=== PATIENT | female | born 1955 | race African-American/Black ===

== ENCOUNTER 2024-09-05 20:29 | Inpatient (IN) | payer OTHER, SELFPAY ==
--- NOTE | ~2024-09-05 | US_ITS ---
EXAM: Focused ultrasound examination of the liver HISTORY: liver mass TECHNIQUE: Sonographic evaluation of the liver was performed assessing grayscale appearance and color Doppler flow. COMPARISON: Reference is made to CT examination of the abdomen and pelvis dated 09/13/2024. FINDINGS: Sonographic evaluation of the liver demonstrates innumerable hyperechoic lesions within both the righ t and left lobes of the liver, suitable for biopsy. IMPRESSION: Multiple liver lesions, suitable for biopsy. Reviewed, dictated and finalized at location A.
--- NOTE | ~2024-09-05 | US_ITS ---
EXAMINATION: Limited ultrasound of the liver. US biopsy liver DATE: 09/15/2024 17:38 Regulatory Affairs Director: Katalina Florez M.D. TECHNIQUE: The procedure including the risks, benefits, and alternatives was discussed with the patie nt. Risks discussed included bleeding, infection and nontargeted biopsy. The patient understood the risks and benefits and agreed to proceed. Limited ultrasound examination was performed of liver to determine optimal site for biopsy. This demonstrated multiple lesions within both the right and left lobes of the liver. The most optimal lesion was detected within segment 8 measuring approximately 19 x 11 mm. The surroun ding lesions demonstrated a paucity of vascularity, for which necrosis was suspected. The skin overly ing the anterior lateral right upper quadrant was prepped and draped in usual sterile fashion. Anest hetic was administered with 1% lidocaine subcutaneously as well as within the capsule of the liver. A 17G introducer was placed utilizing continuous ultrasound guidance into the 19 mm lesion, and the i nner needle removed. An 18-gauge biopsy device was then used to obtain multiple biopsy specimens under continuous sonograp hic guidance. The biopsy device was then removed, and specimen was placed immediately into formalin w ith zero cold ischemia time. Multiple of these specimens were fragile, with suspected necrosis versus mucinous content. Gelfoam slurry was then utilized for hemostasis. Postbiopsy imaging was without active extravasation from the liver. No perihepatic fluid collection was appreciated. A sterile dressing was then applied (Steri-Strips, which should be allowed to fall off on their own). There were no immediate complications. The patient tolerated the procedure without difficulty, and was returned via stretcher to her room in good condition. IMPRESSION: 1. Technically successful ultrasound-guided core biopsy of a 19 mm hyperechoic lesion within the righ t lobe of the liver, likely representing metastatic disease. Pathology is pending. Reviewed, dictated and finalized at location A. IMPRESSION: 1. Technically successful ultrasound-guided core biopsy of a 19 mm hyperechoic lesion within the right lobe of the liver, likely representing metastatic disea se. Pathology is pending.
--- NOTE | ~2024-09-05 | XR_ITS ---
Clinical Indication: Weakness AP and lateral views of the chest: Comparison: None Findings: The lungs are clear, without evidence of focal consolidation or pleural effusion. Cardiome diastinal silhouette is within normal limits. Bones and soft tissues are unremarkable, aside from rig ht shoulder arthroplasty. Impression: Clear lungs. Reviewed, dictated and finalized at location . UTER CUSTOMER SUPPORT SPECIALIST Impression: Clear lungs.
--- NOTE | ~2024-09-05 | CT_ITS ---
EXAMINATION: CT abdomen pelvis wo/w con DATE: 09/13/2024 10:09 INDICATION: Ascending colon mass. Gastrointestinal hemorrhage. TECHNIQUE: Computed tomography (CT) of the abdomen and pelvis was performed without and with 100 mL O mnipaque 350 intravenous contrast. Automated exposure control and iterative reconstruction technique were employed. The dose-length product was 427.39 mGy-cm. COMPARISON: None. FINDINGS: The visualized portions of the lung bases demonstrate mild atelectasis. No pleural effusion . The heart size is normal. There are coronary artery calcifications. No pericardial effusion. There are greater than 20 masses in the liver measuring up to 3.6 cm, consistent with metastatic disease. T he gallbladder is normal. Calcifications in the spleen are consistent with old granulomatous disease. The pancreas and adrenal glands are normal. There is cortical thinning of the kidneys. There is an 8 mm cyst in left kidney. The appendix is normal. There is focal wall thickening of the ascending colo n. There are no dilated loops of bowel. There are no pathologically enlarged lymph nodes. There is no free intraperitoneal fluid. There are old healed right rib fractures. There is severe lumbar spondyl osis. There is a chronic compression fracture of T11. IMPRESSION: 1. Focal wall thickening of the ascending colon, consistent with primary malignancy. 2. Greater than 20 liver masses, consistent with metastatic disease. Consider ultrasound-guided core needle biopsy. Reviewed, dictated and finalized at location B. IMPRESSION: 1. Focal wall thickening of the ascending colon, consistent with primary malign julia. 2. Greater than 20 liver masses, consistent with metastatic disease. Consider u ltrasound-guided core needle biopsy.
[2024-09-05 20:44] VITALS: BP 121/63; PULSE 91; RESP 17; TEMP 36.2; O2SAT 99
[2024-09-06] VITALS (8 sets, daily range): BP systolic 115–144; BP diastolic 52–92; PULSE 84–93; RESP 16–20; TEMP 36–37.1; O2SAT 93–100; BMI 19.3
--- NOTE | 2024-09-06 00:10 | ECG_ITS ---
Test Date: 2024-09-06 00:16:34 Measurements Intervals [place] Rate: 86 P: 50 NC: 158 QRS: 28 QRSD: 90 T: 58 QT: 364 QTc: 437 Interpretive Statements SINUS RHYTHM WITH MARKED SINUS ARRHYTHMIA LEFT VENTRICULAR HYPERTROPHY AND ST-T CHANGE [VOLTAGE CRITERIA PLUS ST/T ABNORMALITY] No previous ECG available for comparison Electronically Signed On 09-07-2024 09:42:07 SILVER BUFFER by Rene Cadet M.D.
--- OUTSIDE RECORDS SUMMARY | 2024-09-06 00:30 | XMS_ITS | Referral Summary ---
Author Organization [facility] Address [address] [place] [address] Care Team Providers Care Material Control Supervisor Name Role Phone Arden Flower MD Primary Care Provider [phone] Allergies No known active allergies Medications amLODIPine (NORVASC) 10 mg tabletIndications:h ypertension Take 1 tablet (10 mg total) by mouth daily 08/21/19 22 Active cetirizine (ZyrTEC) 10 mg tabletIndications:S easonal Allergic Rhinitis Take 1 tablet (10 mg total) by mouth daily 08/21/19 22 Active Pepcid 20 mg tabletIndications:g astroesophageal reflux disease Take 1 tablet (20 mg total) by mouth 2 (two) times a day 08/21/19 22 Active hydrALAZINE (APRESOLINE) 100 mg tabletIndications:h ypertension Take 1 tablet (100 mg total) by mouth 2 (two) times a day 08/21/19 22 Active isosorbide mononitrate ER (IMDUR) 60 mg 24 hr tabletIndications:p revention of anginal pain in coronary artery disease Take 1 tablet (60 mg total) by mouth daily 08/21/19 22 Active losartan (COZAAR) 100 mg tabletIndications:h ypertension Take 1 tablet (100 mg total) by mouth daily 08/21/19 22 Active HYDROcodone-acetami nophen (NORCO) 10-325 mg per tabletIndications:P ain Take 1 tablet by mouth every 6 (six) hours as needed for pain 28 tablet 12/28/19 24 Active baclofen (LIORESAL) 10 mg tabletIndications:M uscle Spasticity of Spinal Origin Take 1 tablet (10 mg total) by mouth 2 (two) times a day 60 tablet 12/28/19 24 Active gabapentin (NEURONTIN) 300 mg capsuleIndications: Neuropathic Pain Take 1 capsule (300 mg total) by mouth 3 (three) times a day 90 capsule 11 12/28/19 24 025 Active lidocaine (LIDODERM) 5 %Indications:Posthe rpetic Neuralgia Place 2 patches on the skin daily Remove & discard patch within 12 hours or as directed by MD. 60 patch 1 12/28/19 Active sodium chloride (OCEAN) 0.65 % nasal spray Administer 2 sprays into each nostril every 6 (six) hours as needed for congestion or rhinitis 15 mL 1 12/28/19 24 025 Active senna-docusate (PERICOLACE) 8.6-50 mgIndications:const ipation Take 1 tablet by mouth daily 30 tablet 12/28/19 Active apixaban 5 mg (74 tabs) tablets,dose packIndications:pul monary thromboembolism Take 10 mg (2 tablets) by mouth 2 (two) times a day for 7 days, then take 5 mg (1 tablet) by mouth 2 (two) times a day thereafter. 74 tablet 01/24/20 24 Active Active Problems Problem Noted Date Diagnosed Date Moderate protein-calorie malnutrition (CMS/HCC) 01/23/2024 Multiple subsegmental pulmon steve emboli without acute cor pulmonale 01/22/2024 Hyponatremia 12/21/2023 Nausea and vomiting 12/21/2023 Social History Tobacco Use Types Packs/Day Years Used Date Smoking Tobacco: Every Day Cigarettes Tobacco Cessation:Ready to Q uit: Not Asked; Counseling Given: Not Answered Alcohol Use Standard Drinks/Week Comments Yes 7 (1 standard drink = 0.6 oz pur e alcohol) OASIS D0700: Social Isolation Answer Da te Recorded Frequency of experiencing lo neliness or isolation Patient unable to respond 02/26/2024 OASIS A1250: Transportation Answer Date Recorded Lack of Transportation (Medical) Not on file 02/26/2024 Lack of Transportation (Non-Medical) Not on file 02/26/2024 Patient Unable or Declines to Respond Yes 02/26/2024 OASIS B1300: Health Literacy Answer Radames e Recorded Frequency of needing help to read materials from doctor or pharmacy Patient unable to respond 02/26/2024 [facility] Utilities Answer Date Recorded In the past 12 months has th e electric, gas, oil, or water company threatened to shut off services in your home? No 01/25/2024 Social Connection and Isolat ion Panel [NHANES] Answer Date Recorded In a typical week, how many times do you talk on the phone with family, friends, or neighbors? More than three times a week 01/25/2024 How often do you get togethe r with friends or relatives? More than three times a week 01/25/2024 How often do you attend chur ch or muslim services? 1 to 4 times per year 01/25/2024 Do you belong to any clubs o r organizations such as judaism groups, unions, fraternal or athletic groups, or school groups? No 01/25/2024 How often do you attend meet ings of the clubs or organizations you belong to? Never 01/25/2024 Are you , , di vorced, , never , or living with a partner? 01/25/2024 Overall Financial Resource Strain (CARDIA) Answe r Date Recorded How hard is it for you to pa y for the very basics like food, housing, medical care, and heating? Not very hard 01/25/2024 Hunger Vital Sign Answer Date Recorded Within the past 12 months, y ou worried that your food would run out before you got the money to buy more. Never true 01/25/20 24 Within the past 12 months, t he food you bought just didn't last and you didn't have money to get more. Never true 01/25/2024 PRAPARE - Transportation Answer Date Re corded In the past 12 months, has l ack of transportation kept you from medical appointments or from getting medications? No 01/04 In the past 12 months, has l ack of transportation kept you from meetings, work, or from getting things needed for daily living? No 01/25/2024 Housing Stability Vital Sign Answer Radames e Recorded In the last 12 months, was t here a time when you were not able to pay the mortgage or rent on time? No 01/25/2024 In the past 12 months, how m any times have you moved where you were living? 0 01/25/2024 At any time in the past 12 m [facility], were you homeless or living in a retirement (including now)? No 01/25/2024 Personal Safety Answer Date Recorded Have you ever been in or are you currently in a harmful physical or emotional relationship or is someone making you feel afraid or unsafe? Denies 05/10/2024 Comments No Sex and Gender Information Value Date Recorded Sex Assigned at Not on file Legal Sex Female 8:26 PM DIRECTOR ORACLE DAT[employer]ASE Gender Identity Not on file Sexual Orientation Not on file Last Filed Vital Signs Vital Sign Reading Time Taken Comments Blood Pressure 135/65 05/10/2024 6:00 PM DIRECTOR [employer] Pulse 78 05/10/2024 4:17 PM [employer]OR [employer] DAT[employer] Temperature 36.6 C (97.8 F) 05/10/2024 4:17 PM DIRECTOR [employer]ACLE DAT[employer]ASE Respiratory Rate 22 05/10/2024 4:17 PM DIRECTOR ORACLE DATABASE Oxygen Saturation 96% 05/10/2024 4:17 PM DIRECTOR [employer] DAT[employer] Inhaled Oxygen Concentration - - Weight 56.2 kg (123 lb 12.8 oz) 01/23/2024 2:44 PM CDT Bed scale Height 154.9 cm (5' 0.98 ) 01/23/2024 3:04 PM CD T Body Mass Index 23.4 01/23/2024 2:44 PM CDT Plan of Treatment Not on file Procedures Procedure Name Priority Date/Time Associated Diagnosis Comments SCREENING MAMMOGRAM BILATERAL W EDWARD Schedule Routine, Read Routine (OP Routine) 06/06/2022 2:03 PM DIRECTOR ORACLE DAT[employer]ASE Encounter for screening mammogram for malignant neoplasm of breast OCCULT BLOOD, FECAL (FIT) Routine 10/18/2015 2:30 PM CDT from Last 3 Months or Most Recently Relevant to Health Maintenance Results * Screening Mammogram Bilateral W Edward (06/06/2022 2:03 PM DIRECTOR ORAC[employer] DAT[employer]ASE) Anatomical Region Laterality Modality Breast Bilateral Mammography Impressions 06/11/2022 1:12 PM DIRECTOR [employer] DATABASE BI-RADS ATLAS category (overall): 2 - Benign There is no mammographic evidence of malignancy. A 1 year screening mammogram is recommended. The patient has been or will be contacted. We recommend annual screening mammography for women at average risk of breast cancer beginning at age 40, based on guidelines of the [place] [employer] (ACR Practice Parameter for the Performance of Screening and Diagnostic Mammography) and [place] [employer]. For women with and elevated risk of breast cancer, please refer to the ACR Practice Parameter for specific screening recommendations. The patient will be entered into a reminder system with a target due date of 1 year for her next screening exam. Narrative 06/11/2022 1:12 PM DIRECTOR ORACLE DATABASE Screening Mammogram Bilateral W Edward: 06/06/22 The study was acquired using full field digital technology and interpreted from soft copy. 2D digital mammographic views, as well as 3D digital tomosynthesis were performed in the CC and MLO projections. CLINICAL: Encounter for screening mammogram for malignant neoplasm of breast. No relevant medical history has been documented for this patient. History of breast cancer in Neg Hx. COMPARISONS: 12/26/2014 Breast Imaging Diagnostic Outside Reference 12/11/2014 Breast Imaging Screening Outside Reference 04/08/2012 Breast Imaging Diagnostic Outside Reference BREAST TISSUE: The breasts have scattered areas of fibroglandular density. FINDINGS: Suboptimal examination secondary to difficulty with patient positioning related to the patient's physical condition. There are benign scattered calcifications in both breasts. No suspicious masses, suspicious calcifications, or other suspicious findings are seen within either breast. There has been no suspicious change. us Arden Flower MD IMG MAMMO PROCEDURES Final Result * Occult blood, fecal non neoplasm screening (10/18/2015 2:30 PM CDT) Stool Occult Blood NEGATIVE NEGATIVE 10/18/2015 3:06 PM CDT [facility] [employer] HISTORICAL RESULTS 10/18/2015 2:30 PM CDT 10/18/2015 2:47 PM CDT Narrative [facility] [employer] HISTORICAL RESULTS - 10/18/2015 3:06 PM CDT Collected By ms us [place] Mahmood MD LAB BODY FLUIDS AND STOOLS ORDER HEMAL Final Result [facility] HISTORICAL RESULTS from Last 3 Months or Most Recently Relevant to Health Maintenance Insurance Advance Directives For more information, please contact: [phone] * Full Code (Latest Code Status on File) Date Activated Date Inactivated Comments 01/22/2024 4:52 PM 01/25/2024 6:10 PM * Full Code Date Activated Date Inactivated Comments 12/21/2023 3:29 AM 12/28/2023 5:57 PM Care Teams Material Control Supervisor Relationship Specialty Start Date End Date Arden Flower MD [address] [place] [address] PCP - General 09/26/20
--- OUTSIDE RECORDS SUMMARY | 2024-09-06 00:30 | XMS_ITS | Clinical Summary ---
Author Organization [facility] Address [address] [place] [address] Care Team Providers Care Manager Architectural Name Role Phone Arden Flower MD Primary Care Provider [phone] Allergies No known active allergies Medications amLODIPine [...] tablet by mouth daily 30 tablet 12/28/19 24 Active apixaban 5 mg (74 tabs) tablets,dose [...] 01/22/2024 Hyponatremia 12/21/2023 Nausea and vomiting 12/21/2023 Surgical History Surgery Date Site/Laterality Comments BREAST BIOPSY Left Benign Medical History Medical History Date Comments Hypertension COPD (chronic obstructive pulmonary disease) (HC C) Family History Medical History Relation Name Comments Breast cancer Neg Hx Relation Name Status Comments Daughter Alive Social History Tobacco Use Types Packs/Day Years [...] or pharmacy Patient unable to respond 02/26/2024 [facility] Utilities Answer Date Recorded In the past 12 months has th e [employer], gas, oil, or water Sol[employer] threatened to shut off services in your [...] often do you attend chur ch or gnosticist services? 1 to 4 times per year 01/25/2024 Do you belong to any clubs o r organizations such as religious groups, unions, fraternal or athletic groups, or [...] any time in the past 12 m [facility], were you homeless or living in a [place] [facility] (including now)? No 01/25/2024 Personal Safety Answer Date Recorded Have you ever been in or are you currently in a harmful physical or emotional relationship or is someone making you feel afraid or unsafe? Denies 05/10/2024 Comments No Sex and Gender Information Value Date Recorded Sex Assigned at Not on file Legal Sex Female 8:26 PM COFFEE GRINDER Gender Identity Not on file Sexual Orientation Not on file Obstetrics History Para Term AB IAB SAB Ectopic Multiple Livin g Live Births 2 1 1 Date Outcome GA Total Labor Labor/2nd/3rd Weight Sex Type Anes PTL Zaina A1 A5 Name Clin Term Last Filed Vital Signs Vital Sign Reading Time Taken Comments Blood Pressure 135/65 05/10/2024 6:00 PM COFFEE GRINDER Pulse 78 05/10/2024 4:17 PM COFFEE GRINDER Temperature 36.6 C (97.8 F) 05/10/2024 4:17 PM COFFEE GRINDER Respiratory Rate 22 05/10/2024 4:17 PM COFFEE GRINDER Oxygen Saturation 96% 05/10/2024 4:17 PM COFFEE GRINDER Inhaled Oxygen Concentration - - Weight 56.2 kg (123 lb 12.8 oz) 01/23/2024 2:44 PM CDT Bed scale Height 154.9 cm (5' 0.98 ) 01/23/2024 3:04 PM CD T Body Mass Index 23.4 01/23/2024 2:44 PM CDT Plan of Treatment Health Maintenance Due Date Last Done Comments Colon Cancer Screening-Colonoscopy 1955 Depression Screening 1955 Hepatitis C Screening 1955 Osteoporosis Screening-Bone Density Scan 1955 DTaP/Tdap/Td Vaccine (1 - Tdap) 01/08/1964 Hepatitis B Screening 1971 Pneumococcal vaccine 65+ (1 of 2 - PCV) 01/08/1972 Zoster Vaccine (1 of 2) 2003 Well Visit 65+ 2018 Breast Cancer Screening-Mammogram 06/06/2023 022 Covid-19 Vaccine (2023-2 5 season) 2024 06/04/2021, 10/19/2020, 09/14/2020 Influenza Vaccine (#1) 2024 Fall Risk Assessment 01/24/2025 01/25/2024 Colon Cancer Screening-FIT Discontinued 10/18/2015 Procedures Procedure Name Priority Date/Time Associated Diagnosis Comments SCREENING MAMMOGRAM BILATERAL W EDWARD Schedule Routine, Read Routine (OP Routine) 06/06/2022 2:03 PM COFFEE GRINDER Encounter for screening mammogram for malignant neoplasm of breast OCCULT BLOOD, FECAL (FIT) Routine 10/18/2015 2:30 PM CDT from Last 3 Months or Most Recently Relevant to Health Maintenance Results * Screening Mammogram Bilateral W Edward (06/06/2022 2:03 PM COFFEE GRINDER) Anatomical Region Laterality Modality Breast Bilateral Mammography Impressions 06/11/2022 1:12 PM COFFEE GRINDER BI-RADS ATLAS category (overall): 2 - Benign There is no mammographic evidence of malignancy. A 1 year screening mammogram is recommended. The patient has been or will be contacted. We recommend annual screening mammography for women at average risk of breast cancer beginning at age 40, based on guidelines of the [place] [employer] (ACR Practice Parameter for the Performance of Screening and Diagnostic Mammography) and [employer]. For women with and elevated risk of breast cancer, please refer to the ACR Practice Parameter for specific screening recommendations. The patient will be entered into a reminder system with a target due date of 1 year for her next screening exam. Narrative 06/11/2022 1:12 PM COFFEE GRINDER Screening Mammogram Bilateral W Edward: 06/06/22 The [...] Blood NEGATIVE NEGATIVE 10/18/2015 3:06 PM CDT [facility] [employer] HISTORICAL RESULTS 10/18/2015 2:30 PM CDT 10/18/2015 2:47 PM CDT Narrative [facility] [facility] HISTORICAL RESULTS - 10/18/2015 3:06 PM CDT Collected By sc us [place] Mahmood MD LAB BODY FLUIDS AND STOOLS ORDER HEMAL Final Result [facility] [employer] HISTORICAL RESULTS from Last 3 Months or Most Recently Relevant to Health Maintenance Insurance [facility] Advance Directives For more information, please contact: [phone] * Full Code (Latest Code Status on File) Date Activated Date Inactivated Comments 01/22/2024 4:52 PM 01/25/2024 6:10 PM * Full Code Date Activated Date Inactivated Comments 12/21/2023 3:29 AM 12/28/2023 5:57 PM Care Teams Manager Architectural Relationship Specialty Start Date End Date Arden Flower MD [address] [place] [id number] PCP - General 09/26/20
--- OUTSIDE RECORDS SUMMARY | 2024-09-06 00:31 | XMS_ITS | Encounter Summary ---
Author Organization [facility] Care Team Providers Care Skin Former Name Role Phone Arden Flower MD Primary Care Provider [phone] Encounter Details Date Type Department Care Team (Latest Contact Info) Description 10/15/2016 Orders Only [facility] CLINCONV Provider, MD Heriberto [address] [place] [id number] Social History Tobacco Use Types Packs/Day Years Used Date Smoking Tobacco: Never Assessed Comments Unknown Sex and Gender Information Value Date Recorded Sex Assigned at Not on file Legal Sex Female 8:26 PM SNOW SHOVELER Gender Identity Not on file Sexual Orientation Not on file documented as of this encounter Plan of Treatment Not on file documented as of this encounter Procedures Procedure Name Priority Date/Time Associated Diagnosis Comments PROCEDURE - RESULT 10/15/2016 12 :00 AM CDT documented in this encounter Results * PROCEDURE - RESULT (10/15/2016 12:00 AM CDT) Narrative 10/15/2016 12:00 AM CDT Ordered by an unspecified provider. us Historical Provider Final Res ult documented in this encounter Visit Diagnoses Not on filedocumented in this encounter Additional Health Concerns Infection Onset Date Last Indicated Resolved Time COVID: Suspected 07/08/2023 07/08/2023 07/08/2023 4:17 PM SNOW SHOVELER COVID19 07/08/2023 07/08/2023 07/18/2023 3:05 AM SNOW SHOVELER C. difficile suspected 12/21/2023 12/21/202312/22 2:14 PM CDT COVID: Suspected 12/21/2023 12/21/2023 12/21/2023 2:15 AM CDT documented as of this encounter Care Teams Skin Former Relationship Specialty Start Date End Date Arden Flower MD [address] [place] [id number] PCP - General 09/26/20 documented as of this encounter
--- OUTSIDE RECORDS SUMMARY | 2024-09-06 00:31 | XMS_ITS | Clinical Summary ---
Author Organization [facility] Address [address] [place] [id number] Care Team Providers Care Waste Water Operator Name Role Phone Arden Flower MD Primary Care Provider [phone] Social History Tobacco Use Types Packs/Day Years Used Date Smoking Tobacco: Never Assessed Comments Unknown Sex and Gender Information Value Date Recorded Sex Assigned at Not on file Legal Sex Female 7:43 PM CDT Gender Identity Not on file Sexual Orientation Not on file Plan of Treatment Health Maintenance Due Date Last Done Comments Colorectal Cancer Screening Colonoscopy (10 Years) 1953 Hepatitis C 1971 DTaP, Tdap and Td Vaccines ( 1 - Tdap) 01/08/1972 Mammogram Screening 1993 Zoster Vaccines (1 of 2) 2003 Dexa Scan (General) 2018 Pneumococcal Vaccine: 65+ Ye ars (1 of 1 - PCV) 2018 COVID-19 Vaccine ( - 2023-2 5 season) 2024 Influenza Adult (#1) 2024 RSV Immunization or 60+ Years (1 - 1-dose 75+ series) 01/08/2028 Meningococcal B Vaccine Aged Out No l onger eligible based on patient's age to complete this topic Meningococcal Vaccine Aged Out No kofi isaias eligible based on patient's age to complete this topic RSV Immunizations Under 20 Months Aged Out No longer eligible based on patient's age to complete this topic Insurance FRESNO Care Teams Waste Water Operator Relationship Specialty Start Date End Date Arden Flower MD [address] [place] [id number] PCP - General FAMILY PRACTICE 01/17/19
--- OUTSIDE RECORDS SUMMARY | 2024-09-06 00:31 | XMS_ITS | Encounter Summary ---
Author Organization [facility] Care Team Providers Care Transmissions Systems Operator Name Role Phone Arden Flower MD Primary Care Provider [phone] Encounter Details Date Type Department Care Team (Latest Contact Info) Description 09/09/2016 Orders Only [facility] CLINCONV Provider, MD Heriberto [address] [place] [id number] Social History Tobacco Use Types Packs/Day Years Used Date Smoking Tobacco: Never Assessed Comments Unknown Sex and Gender Information Value Date Recorded Sex Assigned at Not on file Legal Sex Female 8:26 PM DIRECTOR AGRICULTURAL SERVICES Gender Identity Not on file Sexual Orientation Not on file documented as of this encounter Plan of Treatment Not on file documented as of this encounter Procedures Procedure Name Priority Date/Time Associated Diagnosis Comments PROCEDURE - RESULT 09/10/2016 12 :00 AM DIRECTOR AGRICULTURAL SERVICES documented in this encounter Results * PROCEDURE - RESULT (09/10/2016 12:00 AM DIRECTOR AGRICULTURAL SERVICES) Narrative 09/10/2016 12:00 AM DIRECTOR AGRICULTURAL SERVICES Ordered by an unspecified provider. us Historical Provider Final Res ult documented in this encounter Visit Diagnoses Not on filedocumented in this encounter Additional Health Concerns Infection Onset Date Last Indicated Resolved Time COVID: Suspected 07/08/2023 07/08/2023 07/08/2023 4:17 PM DIRECTOR AGRICULTURAL SERVICES COVID19 07/08/2023 07/08/2023 07/18/2023 3:05 AM DIRECTOR AGRICULTURAL SERVICES C. difficile suspected 12/21/2023 12/21/202312/22 2:14 PM CDT COVID: Suspected 12/21/2023 12/21/2023 12/21/2023 2:15 AM CDT documented as of this encounter Care Teams Transmissions Systems Operator Relationship Specialty Start Date End Date Arden Flower MD [address] [place] [id number] PCP - General 09/26/20 documented as of this encounter
[2024-09-06 00:39] LABS: Basophils Percent Auto 0.5 % (0.2-1.2); Eosinophils Absolute Auto 0.1 K/mm3 (0-0.3); Eosinophils Percent Auto 0.8 % (0-4.4); Hematocrit 22.2 % (37.0-47.0); Hemoglobin 7.1 g/dL (12.0-15.0); Immature Granulocyte Absolute 0.02 K/mm3 (0.00-0.031); Immature Granulocyte Percent A 0.3 % (0-0.5); Lymphocytes Absolute Auto 2.39 K/mm3 (0.9-3.2); Lymphocytes Percent Auto 31.3 % (18.3-44.2); Mean Corpuscular Hemoglobin 18.9 pg (26-34); Mean Platelet Volume 9.4 fl (7.4-10.4); Monocytes Absolute Auto 0.8 K/mm3 (0.1-0.6); Monocytes Percent Auto 10.1 % (2.6-8.5); Neutrophils Absolute Auto 4.4 K/mm3 (1.3-6.7); Platelet Count Result 311 k/mm3 (150-375); Red Blood Count 3.76 M/mm3 (4.2-5.4); White Blood Count 7.6 K/mm3 (4.5-10.0)
[2024-09-06 00:44] LABS: Alanine Aminotransferase 16 U/L (6-35); Albumin Level 3.9 g/dL (3.5-5.1); Alkaline Phosphatase 157 U/L (38-126); Anion Gap 13 mmol/L (4-12); Aspartate Amino Transferase 39 U/L (14-36); Bilirubin,Total 0.5 mg/dL (0.2-1.3); Blood Urea Nitrogen 10 mg/dL (7-17); Calcium 9.3 mg/dL (8.4-10.2); Carbon Dioxide 18 mmol/L (22-30); Chloride 98 mmol/L (98-107); Estimated CRCL calculation 20 ml/min; Estimated Glomerular Filt Rate 29; Glucose 85 mg/dL (65-110); Potassium 4.2 mmol/L (3.4-5.0); Sodium 129 mmol/L (137-145)
[2024-09-06 01:02] LABS: Anisocytosis 1+; Hypochromasia 2+; Large Platelets Present; Platelet Estimate Adequate (Adequate); Poikilocytosis 1+
[2024-09-06 01:02] LABS: Add Urine Microscopic? NO; Appearance Urine Clear (Clear); Bilirubin Urine Negative (Negative); Blood Urine Negative (Negative); Color Urine Yellow (Yellow); Glucose Urine UA Negative (Negative); Ketones Urine Negative (Negative); Leukocyte Esterase Ur Negative LEU/UL (Negative); Nitrate Urine Negative (Negative); Protein Urine Negative (Negative); Specific Grav Ur 1.003 (1.001-1.035); Urobilinogen Urine 0.2 mg/dL (<2.0); pH Urine 5.5 (5.0-9.0)
[2024-09-06 01:03] LABS: Crenated RBC 1+; Ovalocytes 1+; Target Cells 1+
[2024-09-06 01:04] LABS: Schistocytes Rare
[2024-09-06 01:11] LABS: Creatine Kinase 181 U/L (30-135); Magnesium 1.9 mg/dL (1.6-2.3)
[2024-09-06 01:12] LABS: Ethanol 10 mg/dL (<10)
[2024-09-06 01:22] LABS: Troponin I < 0.012 ng/mL (0.000-0.034)
[2024-09-06 01:25] LABS: Partial Thromboplastin Time 29.3 Seconds (22.3-36.8); Prothrombin Time 13.6 Seconds (11.1-14.7)
[2024-09-06 01:25] LABS: Lactic Acid Reflex 1.4 mmol/L (0.7-2.0)
[2024-09-06 01:45] LABS: Influenza A QL RT-PCR Negative (Negative); Influenza B QL RT-PCR Negative (Negative); RSV RNA, RT-PCR Negative (Negative); SARS-CoV-2 RNA PCR Negative (Negative)
--- NOTE | 2024-09-06 02:41 | ED.GENADULT ---
HPI - General Adult General Chief complaint: Weakness Stated complaint: lower extremity weakness Time Seen by Provider: 09/06/24 00:04 History of Present Illness HPI narrative: Patient is a 69-year-old female who presents emergency department chief complaint of lower extremity weakness that have been progressive over the last several months the patient was seen at [facility] and was told that she needed to consider rehab but the patient decided that she did not want to stay and left the patient does report that she had about 4 beers this evening and reports that she has been very weak and not able to walk around the patient states she normally does use a wheelchair but reports that now she can barely get into her wheelchair and move around the patient states that she has had no injury and decided to come to our facility today because she had not been here in many years Related Data Allergies Allergy/AdvReac Type Severity Reaction Status Date / Time No Known Allergies Allergy Verified 09/06/24 00:17 Review of Systems Review of Systems: A 10 system review of systems was completed on the patient and is negative except for what is stated in the HPI. Nursing and ancillary documentation was reviewed. Exam Narrative: GENERAL: Well-appearing, well-nourished, and in no acute distress. HEAD: Normocephalic, atraumatic. EYES: PERRLA and EOMI. ENT: Nares clear, no rhinorrhea or epistaxis. Mucous membranes moist. NECK: Supple. CHEST: Clear to auscultation. No respiratory distress. HEART: Regular rate and rhythm. No murmur heard. Normal peripheral pulses. ABDOMEN: Soft, nontender, nondistended, normal active bowel sounds. : Guaiac-negative stool EXTREMITIES: Normal range of motion. No edema. SKIN: Warm, dry, no rash. NEURO: No focal deficits. Alert and oriented x3. Patient was attempted ambulate but was very unsteady her feet PSYCH: Normal mood and affect. Course Vital Signs Vital signs: Vital Signs Temperature 36.2 C L 09/05/24 20:44 Pulse Rate 91 09/05/24 20:44 Respiratory Rate 17 09/05/24 20:44 Blood Pressure 121/63 09/05/24 20:44 Pulse Oximetry 99 09/05/24 20:44 Oxygen Delivery Room Air 09/05/24 20:44 Temperature 37.1 C 09/06/24 01:34 Pulse Rate 86 09/06/24 01:34 Respiratory Rate 18 09/06/24 01:34 Blood Pressure 115/56 L 09/06/24 01:34 Pulse Oximetry 98 09/06/24 01:34 Oxygen Delivery Room Air 09/06/24 00:16 Medical Decision Making Vital Signs Vital Signs: Vital Signs Temperature 36.2 C L 09/05/24 20:44 Pulse Rate 91 09/05/24 20:44 Respiratory Rate 17 09/05/24 20:44 Blood Pressure 121/63 09/05/24 20:44 Pulse Oximetry 99 09/05/24 20:44 Oxygen Delivery Room Air 09/05/24 20:44 Temperature 37.1 C 09/06/24 01:34 Pulse Rate 86 09/06/24 01:34 Respiratory Rate 18 09/06/24 01:34 Blood Pressure 115/56 L 09/06/24 01:34 Pulse Oximetry 98 09/06/24 01:34 Oxygen Delivery Room Air 09/06/24 00:16 Lab Data 09/06/24 00:22 09/06/24 00:22 Labs: Lab Results 09/06/24 09/06/24 09/06/24 Range/Units 00:22 00:47 01:05 WBC 7.6 (4.5-10.0) K/mm3 RBC 3.76 L (4.2-5.4) M/mm3 Hgb 7.1 L (12.0-15.0) g/dL Hct 22.2 L (37.0-47.0) % MCV 59.0 L (80-100) fl MCH 18.9 L (26-34) pg MCHC 32.0 (32-36) g/dl RDW 20.0 H (11.5-14.5) % Plt Count 311 (150-375) k/mm3 MPV 9.4 (7.4-10.4) fl Immature Gran % (Auto) 0.3 (0-0.5) % Neut % (Auto) 57.0 (45.5-73.1) % Lymph % (Auto) 31.3 (18.3-44.2) % [place] % (Auto) 10.1 H (2.6-8.5) % Eos % (Auto) 0.8 (0-4.4) % Baso % (Auto) 0.5 (0.2-1.2) % Lymph # (Auto) 2.39 (0.9-3.2) K/mm3 [place] # (Auto) 0.8 H (0.1-0.6) K/mm3 Eos # (Auto) 0.1 (0-0.3) K/mm3 Baso # (Auto) 0.0 (0.0-0.1) K/mm3 Abs Immat Gran (auto) 0.02 (0.00-0.031) K/mm3 Absolute Neuts (auto) 4.4 (1.3-6.7) K/mm3 Absolute Nucleated RBC 0.000 (0.0-0.012) K/mm3 Band Neutrophils % Not Reportable Nucleated RBC % 0.0 (0.0-0.2) % Platelet Estimate Adequate (Adequate) Large Platelets Present % Immature Plt Fraction 3.0 (0.9-11.2) % Hypochromasia 2+ Poikilocytosis 1+ Anisocytosis 1+ Target Cells 1+ Ovalocytes 1+ Crenated Cell 1+ Schistocytes Rare PT 13.6 (11.1-14.7) Seconds INR 1.0 APTT 29.3 (22.3-36.8) Seconds Sodium 129 L (137-145) mmol/L Potassium 4.2 (3.4-5.0) mmol/L Chloride 98 (98-107) mmol/L Carbon Dioxide 18 L (22-30) mmol/L Anion Gap 13 H (4-12) mmol/L BUN 10 (7-17) mg/dL Creatinine 1.72 H (0.7-1.0) mg/dL Estim Creat Clear Calc 20 ml/min Estimated GFR 29 L (59 - ) Glucose 85 (65-110) mg/dL Lactic Acid 1.4 (0.7-2.0) mmol/L Calcium 9.3 (8.4-10.2) mg/dL Magnesium 1.9 (1.6-2.3) mg/dL Total Bilirubin 0.5 (0.2-1.3) mg/dL AST 39 H (14-36) U/L ALT 16 (6-35) U/L Alkaline Phosphatase 157 H (38-126) U/L Total Creatine Kinase 181 H (30-135) U/L Troponin I < 0.012 (0.000-0.034) ng/mL Total Protein 8.0 (6.3-8.2) g/dL Albumin 3.9 (3.5-5.1) g/dL Urine Color Yellow (Yellow) Urine Appearance Clear (Clear) Urine pH 5.5 (5.0-9.0) Ur Specific [place] 1.003 (1.001-1.035) Urine Protein Negative (Negative) mg/dL Urine Glucose (UA) Negative (Negative) mg/dL Urine Ketones Negative (Negative) mg/dL Ur Blood (Man) Negative (Negative) Urine Nitrate Negative (Negative) Urine Bilirubin Negative (Negative) Urine Urobilinogen 0.2 (<2.0) mg/dL Leukocyte Esterase Rfl Negative (Negative) CHRISTINA/UL Ethyl Alcohol 10 (<10) mg/dL Influenza A (RT-PCR) Negative (Negative) Influenza B (RT-PCR) Negative (Negative) RSV (RT-PCR) Negative (Negative) SARS-CoV-2 RNA (RT-PCR) Negative (Negative) Discharge Plan Discharge Clinical Impression: Generalized weakness, Anemia, Hyponatremia Patient Disposition: Still a Patient Condition: Stable Patient Language: American Follow-up/Referrals: Mundo,Arden Callejas MD [Primary Care Provider] - Time of Disposition: 03:04
[2024-09-06] MEDS: SODIUM CHLORIDE 0.9% IV 1,000 ML 999 ML IV CONT (03:10)
[2024-09-06] MEDS: THIAMINE 500 MG/NS 100 ML 500 MG/100 ML BAG 200 MG IVPB (03:16)
--- NOTE | 2024-09-06 04:08 | PC.NURSE ---
PATIENT ARRIVED ON 3 MEDSURG AT 0400
[2024-09-06] MEDS: HYDROcodone/acetaminophen (*CRX) 5-325 MG TABLET 1 TAB PO ×4 (05:01→22:35)
[2024-09-06] MEDS: GABAPENTIN 300 MG CAPSULE PO ×2 (05:01→20:49)
[2024-09-06 07:25] LABS: Basophils Absolute Auto 0.1 K/mm3 (0.0-0.1); Basophils Percent Auto 0.7 % (0.2-1.2); Eosinophils Absolute Auto 0.1 K/mm3 (0-0.3); Eosinophils Percent Auto 0.7 % (0-4.4); Hematocrit 24.4 % (37.0-47.0); Hemoglobin 7.4 g/dL (12.0-15.0); Immature Granulocyte Absolute 0.02 K/mm3 (0.00-0.031); Immature Granulocyte Percent A 0.3 % (0-0.5); Lymphocytes Absolute Auto 2.04 K/mm3 (0.9-3.2); Lymphocytes Percent Auto 28.2 % (18.3-44.2); Mean Corpuscular HGB Conc 30.3 g/dl (32-36); Mean Corpuscular Hemoglobin 18.2 pg (26-34); Mean Corpuscular Volume 60.1 fl (80-100); Mean Platelet Volume 10.1 fl (7.4-10.4); Monocytes Absolute Auto 0.6 K/mm3 (0.1-0.6); Monocytes Percent Auto 8.4 % (2.6-8.5); Neutrophils Absolute Auto 4.5 K/mm3 (1.3-6.7); Neutrophils Percent Auto 61.7 % (45.5-73.1); Platelet Count Result 350 k/mm3 (150-375); Red Blood Count 4.06 M/mm3 (4.2-5.4); Red Cell Distribution Width 20.1 % (11.5-14.5); Reticulocyte Hemoglobin Conten 17.9 pg (28.2-36.6); Reticulocyte Percent 1.24 % (0.7-4.3); Reticulocytes Absolute 0.05 10^6/uL (0.02-0.10); White Blood Count 7.2 K/mm3 (4.5-10.0)
[2024-09-06 08:25] LABS: Anisocytosis 1+; Burr Cells 1+; Hypochromasia 1+; Platelet Estimate Adequate (Adequate); Schistocytes None Seen
[2024-09-06 08:40] LABS: Folic Acid > 20.0 ng/mL (2.76->20)
[2024-09-06] MEDS: hydrALAZINE HCL 50 MG TABLET 100 MG PO (08:45)
[2024-09-06] MEDS: APIXABAN 5 MG TABLET PO ×2 (08:46→20:48)
[2024-09-06] MEDS: ISOSORBIDE MONONITRATE 60 MG TAB.ER.24H PO (08:46)
[2024-09-06] MEDS: amLODIPine BESYLATE 10 MG TABLET PO (08:46)
[2024-09-06] MEDS: LORATADINE 10 MG TABLET PO ×2 (08:46→20:48)
[2024-09-06] MEDS: LOSARTAN POTASSIUM 100 MG TABLET PO (08:46)
[2024-09-06] MEDS: SENNA/DOCUSATE SODIUM TABLET 1 TAB PO ×2 (08:46→16:56)
[2024-09-06] MEDS: FAMOTIDINE 20 MG TABLET PO ×2 (08:46→20:48)
[2024-09-06] MEDS: CITALOPRAM HYDROBROMIDE 10 MG TABLET PO (08:46)
[2024-09-06] MEDS: THIAMINE HCL 100 MG TABLET PO (08:47)
[2024-09-06] MEDS: SERTRALINE HCL 50 MG TABLET 100 MG PO (08:47)
[2024-09-06 08:50] LABS: Iron 22 ug/dL (37-170)
[2024-09-06] MEDS: LIDOCAINE 5% PATCH 1 PATCH TOPICAL (08:53)
[2024-09-06 08:58] LABS: Percent Iron Saturation 5 % (20-50)
[2024-09-06 09:25] LABS: Ferritin 9.21 ng/mL (11.1-264)
[2024-09-06] MEDS: MULTIVIT/MIN/PREN/FOL AC/IRON TABLET 1 TAB PO (11:10)
[2024-09-06] MEDS: IRON SUCROSE COMPLEX 200 MG, IRON SUCROSE COMPLEX 100 MG in SODIUM CHLORIDE 0.9% IV 250 ML 176.67 MG IVPB (13:27)
[2024-09-06] MEDS: ONDANSETRON INJ 4 MG/2 ML VIAL IV PUSH (14:25)
[2024-09-06] MEDS: ATORVASTATIN 10 MG TABLET PO (16:56)
[2024-09-06] MEDS: BACLOFEN 10 MG TABLET PO (17:03)
--- NOTE | 2024-09-06 17:45 | PM.IMHP ---
H&P: HPI History of Present Illness Date/Time: 09/06/24 17:45 Chief Complaint: Weakness Narrative: ER-HPI narrative: Patient is a 69-year-old female who presents emergency department chief complaint of lower extremity weakness that have been progressive over the last several months the patient was seen at [facility] and was told that she needed to consider rehab but the patient decided that she did not want to stay and left the patient does report that she had about 4 beers this evening and reports that she has been very weak and not able to walk around the patient states she normally does use a wheelchair but reports that now she can barely get into her wheelchair and move around the patient states that she has had no injury and decided to come to our facility today because she had not been here in many years patient is 69 y/o AA female with PMHX of HTN, HDL, atril fibrilation on Eliquis, chronic pain, presented with generalized weakness and pain, patient is also found to have iron deficiency anemia, her iron is low patient is being transfused, patient concern is pain and weakness, currently receiving hydrocodone, baclofen, and lidoderm patches, will have PT/ OT evaluate the patient patient and further recommendations to follow. Review of Systems Review of Systems: A 10 system review of systems was completed on the patient and is negative except for what is stated in the HPI. Nursing and ancillary documentation was reviewed. [facility] Family History Family History (Updated 09/06/24 @ 07:22 by Ric Jalloh RN) Mother Cancer Grandparent Diabetes mellitus Social History Social History Smoking packs per day: 0.5 Smoking cigarettes per day: 10.0 Smoking status: Former smoker Smoking end date: 08/09/24 Alcohol intake: current Drinks per week: 25 Substance use: current Substance use type: marijuana Do You Feel Safe in your Home?: Yes Lack of Transportation: No Lack of Food: Often True Current Housing: I Do Not Have Housing Concerned About Future Housing: No Difficulty Paying Gas/Electric Bills: No Difficulty Paying for Meds: No Currently Unemployed: No Education: High School Diploma/GED Difficulty w/ Childcare or Family Care: No Spiritual care concerns: Yes Meds Home Medications and Allergies Home Medications ?Medication ?Instructions ?Recorded ?Confirmed ?Type amlodipine 10 mg tablet 10 mg PO DAILY 09/06/24 09/06/24 History apixaban 5 mg (74 tabs) tablets in 5 mg PO Q12H 09/06/24 09/06/24 History a dose pack (Eliquis DVT-PE Treat 30D Start) atorvastatin 10 mg tablet 10 mg PO QPM 09/06/24 09/06/24 History baclofen 10 mg tablet 10 mg PO Q6H PRN muscle spasm 09/06/24 09/06/24 History cetirizine 10 mg tablet 10 mg PO Q12H 09/06/24 09/06/24 History citalopram 10 mg tablet 10 mg PO DAILY 09/06/24 09/06/24 History famotidine 20 mg tablet 20 mg PO Q8H 09/06/24 09/06/24 History gabapentin 300 mg capsule 300 mg PO Q8H 09/06/24 09/06/24 History hydralazine 100 mg tablet 100 mg PO Q12H 09/06/24 09/06/24 History hydrocodone 5 mg-acetaminophen 325 1 tablet PO Q6H PRN pain 09/06/24 09/06/24 History mg tablet isosorbide mononitrate 60 mg 60 mg PO DAILY 09/06/24 09/06/24 History tablet,extended release 24 hr lidocaine 5 % topical patch 1 patch topical Q24H 09/06/24 09/06/24 History losartan 100 mg tablet 100 mg PO DAILY 09/06/24 09/06/24 History sennosides 8.6 mg-docusate sodium 1 tab-cap PO BID 09/06/24 09/06/24 History 50 mg tablet (Stimulant Laxative Plus) sertraline 100 mg tablet 100 mg PO Q24H 09/06/24 09/06/24 History sodium chloride 0.65 % nasal spray 2 spray intranasal BID PRN nasal 09/06/24 09/06/24 History aerosol (Deep Sea Nasal) congestion Allergies Allergy/AdvReac Type Severity Reaction Status Date / Time No Known Allergies Allergy Verified 09/06/24 04:12 Vital Signs Vital Signs - 24 hr 09/05/24 20:44 09/06/24 00:16 09/06/24 00:16 Temperature 36.2 C L Pulse Rate 91 87 Respiratory Rate 17 Blood Pressure 121/63 Pulse Oximetry 99 99 Oxygen Delivery Room Air Room Air 09/06/24 00:25 09/06/24 01:34 09/06/24 03:18 Temperature 36.8 C 37.1 C 36.9 C Pulse Rate 84 86 91 Respiratory Rate 17 18 20 Blood Pressure 144/79 H 115/56 L 132/92 H Pulse Oximetry 100 98 100 Oxygen Delivery 09/06/24 04:57 09/06/24 08:00 09/06/24 14:00 Temperature 36.0 C L 36.6 C Pulse Rate 93 86 Respiratory Rate 18 16 Blood Pressure 131/52 L 129/66 Pulse Oximetry 97 97 98 Oxygen Delivery Room Air Exam Narrative: Patient is comfortable, NAD, pain HEENT: eyes are clear and none icteric LUNGS:CTA HEART: RR S1S2 ABD: BS+, Soft and nontender Lower extremities: no edema SKIN: nonjaundiced Neuro: grossly intact. H&P: Results Labs Labs: Short CBC 09/06/24 09/06/24 Range/Units 00:22 06:46 WBC 7.6 7.2 (4.5-10.0) K/mm3 Hgb 7.1 L 7.4 L (12.0-15.0) g/dL Hct 22.2 L 24.4 L (37.0-47.0) % Plt Count 311 350 (150-375) k/mm3 BMP 09/06/24 00:22 Sodium 129 L Potassium 4.2 Chloride 98 Carbon Dioxide 18 L BUN 10 Creatinine 1.72 H Glucose 85 Calcium 9.3 Cardiac Enzymes 09/06/24 Range/Units 00:22 Total Creatine Kinase 181 H (30-135) U/L Troponin I < 0.012 (0.000-0.034) ng/mL Liver Function 09/06/24 Range/Units 00:22 Total Bilirubin 0.5 (0.2-1.3) mg/dL AST 39 H (14-36) U/L ALT 16 (6-35) U/L Alkaline Phosphatase 157 H (38-126) U/L Albumin 3.9 (3.5-5.1) g/dL Urine 09/06/24 Range/Units 00:47 Urine Color Yellow (Yellow) Urine Appearance Clear (Clear) Urine pH 5.5 (5.0-9.0) Ur Specific [place] 1.003 (1.001-1.035) Urine Protein Negative (Negative) mg/dL Urine Glucose (UA) Negative (Negative) mg/dL Assessment and Plan Assessment and plan (1) Anemia: Code(s): D64.9 - Anemia, unspecified Status: Acute (2) Debility, unspecified: Code(s): R53.81 - Other malaise Status: Acute (3) KATIE (acute kidney injury): Code(s): N17.9 - Acute kidney failure, unspecified Status: Acute (4) Hyponatremia: Code(s): E87.1 - Hypo-osmolality and hyponatremia Status: Acute (5) HTN (hypertension), benign: Code(s): I10 - Essential (primary) hypertension Status: Acute (6) Atrial fibrillation: Code(s): I48.91 - Unspecified atrial fibrillation Status: Acute (7) Generalized weakness: Code(s): R53.1 - Weakness Status: Acute Plan patient is 69 y/o AA female with PMHX of HTN, HDL, atril fibrilation on Eliquis, chronic pain, presented with generalized weakness and pain, patient is also found to have iron deficiency anemia, her iron is low patient is being transfused, patient concern is pain and weakness, currently receiving hydrocodone, baclofen, and lidoderm patches, will have PT/ OT evaluate the patient patient and further recommendations to follow. Quality VTE Prophylaxis VTE prophylaxis: pharmacologic ordered Hospitalist MIPS Advance Care Plan I have confirmed that the patient's Advanced Care Plan is present, code status is documented, or surrogate decision maker is listed in patient medical record.: Yes Medication Reconciliation The patient is not eligible for med reconciliation; the patient is in a emergent medical situation where delaying treatment would jeopardize the patients health.: Yes
--- NOTE | 2024-09-06 18:00 | PC.NURSE ---
[id number] Dr Hubbard notified of patient c/o pain in her legs and back. Patient moaning and restless. Md will be up to see patient.
[2024-09-07] MEDS: FAMOTIDINE 20 MG TABLET PO ×2 (05:00→14:03)
[2024-09-07] MEDS: GABAPENTIN 300 MG CAPSULE PO ×2 (05:00→14:03)
[2024-09-07] MEDS: HYDROcodone/acetaminophen (*CRX) 5-325 MG TABLET 1 TAB PO ×2 (05:01→14:09)
[2024-09-07 05:42] VITALS: BP 126/59; PULSE 77; RESP 16; TEMP 36.4; O2SAT 100
[2024-09-07 06:24] LABS: Anion Gap 8 mmol/L (4-12); Blood Urea Nitrogen 13 mg/dL (7-17); Calcium 9.5 mg/dL (8.4-10.2); Carbon Dioxide 22 mmol/L (22-30); Chloride 106 mmol/L (98-107); Estimated CRCL calculation 22 ml/min; Estimated Glomerular Filt Rate 33; Glucose 86 mg/dL (65-110); Magnesium 2.1 mg/dL (1.6-2.3); Potassium 4.6 mmol/L (3.4-5.0); Sodium 136 mmol/L (137-145)
[2024-09-07 06:32] LABS: Hematocrit 24.7 % (37.0-47.0); Hemoglobin 7.4 g/dL (12.0-15.0); Immature Platelet Fraction Pct 3.4 % (0.9-11.2); Mean Corpuscular Hemoglobin 18.2 pg (26-34); Mean Corpuscular Volume 60.7 fl (80-100); Mean Platelet Volume 9.8 fl (7.4-10.4); Platelet Count Result 358 k/mm3 (150-375); Red Blood Count 4.07 M/mm3 (4.2-5.4); Red Cell Distribution Width 20.3 % (11.5-14.5); White Blood Count 6.7 K/mm3 (4.5-10.0)
[2024-09-07] MEDS: IRON SUCROSE COMPLEX 200 MG, IRON SUCROSE COMPLEX 100 MG in SODIUM CHLORIDE 0.9% IV 250 ML 176.67 MG IVPB (09:18)
[2024-09-07 09:20] VITALS: BP 130/63; PULSE 77; O2SAT 100
[2024-09-07] MEDS: THIAMINE HCL 100 MG TABLET PO (09:20)
[2024-09-07] MEDS: ISOSORBIDE MONONITRATE 60 MG TAB.ER.24H PO (09:20)
[2024-09-07] MEDS: LOSARTAN POTASSIUM 100 MG TABLET PO (09:21)
[2024-09-07] MEDS: SENNA/DOCUSATE SODIUM TABLET 1 TAB PO ×2 (09:21→17:18)
[2024-09-07] MEDS: MULTIVIT/MIN/PREN/FOL AC/IRON TABLET 1 TAB PO (09:21)
[2024-09-07] MEDS: amLODIPine BESYLATE 10 MG TABLET PO (09:21)
[2024-09-07] MEDS: SERTRALINE HCL 50 MG TABLET 100 MG PO (09:21)
[2024-09-07] MEDS: CITALOPRAM HYDROBROMIDE 10 MG TABLET PO (09:21)
[2024-09-07] MEDS: LORATADINE 10 MG TABLET PO (09:21)
[2024-09-07] MEDS: APIXABAN 5 MG TABLET PO (09:22)
[2024-09-07] MEDS: LIDOCAINE 5% PATCH 1 PATCH TOPICAL (09:22)
[2024-09-07] MEDS: BACLOFEN 10 MG TABLET PO ×2 (09:45→16:04)
[2024-09-07] MEDS: LIDOCAINE 5% PATCH 2 PATCH TRANSDERM (11:00)
[2024-09-07 11:15] VITALS: BMI 19.3
--- NOTE | 2024-09-07 11:50 | P.CDI_ITS ---
CDI Query Clarification Request BMI: 19.3 Nutritional Diagnostic Statement: Please refer to the comprehensive nutrition assessment for further information. If you agree with diagnosis of Severe protein calorie malnutrition related to inadequate energy intake as evidenced by pt report of a -28% wt loss x 1 year, reduced po intake for 1 year, and NFPE findings for severe muscle wasting specifically in lower region (thigh, knee, calf) as well as moderate subcutaneous fat loss (cheeks). Please specify severity if known: * Mild * Moderate * Severe * Other/Unknown
[2024-09-07 14:00] VITALS: BP 132/89; PULSE 75; RESP 16; TEMP 36.7; O2SAT 98
--- NOTE | 2024-09-07 16:18 | P.PNIM_ITS ---
Progress Note: A&P Assessment and Plan (1) Anemia: Code(s): D64.9 - Anemia, unspecified Status: Acute (2) Debility, unspecified: Code(s): R53.81 - Other malaise Status: Acute (3) KATIE (acute kidney injury): Code(s): N17.9 - Acute kidney failure, unspecified Status: Acute (4) Hyponatremia: Code(s): E87.1 - Hypo-osmolality and hyponatremia Status: Acute (5) HTN (hypertension), benign: Code(s): I10 - Essential (primary) hypertension Status: Acute (6) Atrial fibrillation: Code(s): I48.91 - Unspecified atrial fibrillation Status: Acute (7) Generalized weakness: Code(s): R53.1 - Weakness Status: Acute Plan patient is 69 y/o AA female with PMHX of HTN, HDL, atril fibrilation on Eliquis, chronic pain, presented with generalized weakness and pain, patient is also found to have iron deficiency anemia, her iron is low patient is being transfused, patient concern is pain and weakness, currently receiving hydrocodone, baclofen, and Lidoderm patches, will have PT/ OT evaluate the patient patient and further recommendations to follow. This morning patient stats she is better compared to when she arrive, patient randle spected iron deficiency anemia, received 2nd dose of iron, patient is persisting, will continue baclofen, Lidoderm patches, and hydrocodone PRN, will have PT/OT work with patient, patient will benefit going to rehab. Subjective Date/time seen: 09/07/24 16:18 Interval history: patient is 69 y/o AA female with PMHX of HTN, HDL, atril fibrilation on Eliquis, chronic pain, presented with generalized weakness and pain, patient is also found to have iron deficiency anemia, her iron is low patient is being transfused, patient concern is pain and weakness, currently receiving hydrocodone, baclofen, and lidoderm patches, will have PT/ OT evaluate the patient patient and further recommendations to follow. This morning patient stats she is better compared to when she arrive, patient suspected iron deficiency anemia, received 2nd dose of iron, patient is persisting, will continue baclofen, Lidoderm patches, and hydrocodon PRN, will have PT/OT work with patient, patient will benefit going to rehab. Review of Systems 2 Review of Systems: A 10 system review of systems was completed on the patient and is negative except for what is stated in the HPI. Nursing and ancillary documentation was reviewed. Exam Narrative: Patient is comfortable, NAD, pain HEENT: eyes are clear and none icteric LUNGS:CTA HEART: RR S1S2 ABD: BS+, Soft and nontender Lower extremities: no edema SKIN: nonjaundiced Neuro: grossly intact. Objective Data Vital Signs Vital Signs: Vital Signs - 24 hr 09/06/24 20:00 09/06/24 21:31 09/07/24 05:42 Temperature 36.4 C 36.4 C Pulse Rate 88 77 Respiratory Rate 16 16 Blood Pressure 129/52 L 126/59 L Pulse Oximetry 93 100 Oxygen Delivery Room Air 09/07/24 09:20 09/07/24 09:20 09/07/24 11:05 Temperature Pulse Rate 77 Respiratory Rate Blood Pressure 130/63 Pulse Oximetry 100 Oxygen Delivery Room Air Room Air 09/07/24 14:00 Temperature 36.7 C Pulse Rate 75 Respiratory Rate 16 Blood Pressure 132/89 Pulse Oximetry 98 Oxygen Delivery Intake/Output Intake/Output: Intake & Output 09/04/24 09/05/24 09/06/24 09/07/24 23:59 23:59 23:59 23:59 Intake Total 1440 336 Output Total 300 500 Balance 1140 -164 Meds/Results Medications: Active Medications Generic Name Dose Route Start Last Admin Trade Name Freq PRN Reason Stop Dose Admin Hydrocodone Bitart/Acetaminophen 1 tab 09/06/24 04:46 09/07/24 14:09 Hydrocodone/Acetaminophen (*Crx) 5-325 Mg Tablet PO 1 tab Q6H PRN Administration pain 7-10 Amlodipine Besylate 10 mg 09/06/24 09:00 09/07/24 09:21 Amlodipine Besylate 10 Mg Tablet PO 10 mg DAILY YONY Administration Apixaban 5 mg 09/06/24 09:00 09/07/24 09:22 Apixaban 5 Mg Tablet PO 10/06/24 08:59 5 mg Q12H YONY Administration Atorvastatin Calcium 10 mg 09/06/24 18:00 09/06/24 16:56 Atorvastatin 10 Mg Tablet PO 10 mg QPM YONY Administration Baclofen 10 mg 09/07/24 16:00 09/07/24 16:04 Baclofen 10 Mg Tablet PO 10 mg Q6H YONY Administration Citalopram Hydrobromide 10 mg 09/06/24 09:00 09/07/24 09:21 Citalopram Hydrobromide 10 Mg Tablet PO 10 mg DAILY YONY Administration Famotidine 20 mg 09/06/24 09:00 09/07/24 14:03 Famotidine 20 Mg Tablet PO 20 mg Q8HR YONY Administration Gabapentin 300 mg 09/06/24 06:00 09/07/24 14:03 Gabapentin 300 Mg Capsule PO 300 mg Q8HR YONY Administration Iron Sucrose 200 mg/ Iron 265 mls @ 176.667 mls/hr 09/08/24 09:00 Sucrose 100 mg/ Sodium IVPB 09/08/24 10:29 Chloride ONCE ONE Isosorbide Mononitrate 60 mg 09/06/24 09:00 09/07/24 09:20 Isosorbide Mononitrate 60 Mg Tab.Er.24h PO 60 mg DAILY YONY Administration Lidocaine 1 patch 09/06/24 09:00 09/07/24 09:22 Lidocaine 5% Patch TOPICAL 1 patch Q24H YONY Administration Lidocaine 2 patch 09/07/24 10:05 09/07/24 11:00 Lidocaine 5% Patch TRANSDERM 2 patch DAILY YONY Administration Loratadine 10 mg 09/06/24 09:00 09/07/24 09:21 Loratadine 10 Mg Tablet PO 10/06/24 08:59 10 mg Q12H YONY Administration Losartan Potassium 100 mg 09/06/24 09:00 09/07/24 09:21 Losartan Potassium 100 Mg Tablet PO 100 mg DAILY YONY Administration Miscellaneous Information 0 each 09/07/24 00:01 The Outpatient Med History Shows The Cetirizine/Loratadine Would Be Given Daily And The Fa XX 10/07/24 00:00 CLARIFY YONY Ondansetron HCl 4 mg 09/06/24 03:01 09/06/24 14:25 Ondansetron Inj 4 Mg/2 Ml Vial IV PUSH 4 mg Q4H PRN Administration Nausea Vit/Calcium/Iron/Folic Ac 1 tab 09/06/24 09:00 09/07/24 09:21 Multivit/Min/Pren/Fol Ac/Iron Tablet PO 1 tab DAILY YONY Administration Senna/Docusate Sodium 1 tab 09/06/24 09:00 09/07/24 09:21 Senna/Docusate Sodium Tablet PO 1 tab BID YONY Administration Sertraline HCl 100 mg 09/06/24 09:00 09/07/24 09:21 Sertraline Hcl 50 Mg Tablet PO 100 mg Q24H YONY Administration Sodium Chloride 2 spray 09/06/24 07:56 Saline 0.65% Kendrick Soln 44 Ml Btl NASAL BID PRN nasal congestion Thiamine HCl 100 mg 09/06/24 09:00 09/07/24 09:20 Thiamine Hcl 100 Mg Tablet PO 100 mg QAM YONY Administration Radiology Results: ITS Impressions Chest X-Ray 09/06/24 06:07 Impression: Clear lungs. Labs Labs: Laboratory Results - last 24 hr 09/07/24 05:39 WBC 6.7 RBC 4.07 L Hgb 7.4 L Hct 24.7 L MCV 60.7 L MCH 18.2 L MCHC 30.0 L RDW 20.3 H Plt Count 358 MPV 9.8 % Immature Plt Fraction 3.4 Sodium 136 L Potassium 4.6 Chloride 106 Carbon Dioxide 22 Anion Gap 8 BUN 13 Creatinine 1.55 H Estim Creat Clear Calc 22 Estimated GFR 33 L Glucose 86 Calcium 9.5 Magnesium 2.1 Quality VTE Prophylaxis VTE prophylaxis: pharmacologic ordered
[2024-09-07] MEDS: ATORVASTATIN 10 MG TABLET PO (17:17)
[2024-09-07 21:11] VITALS: BP 100/46; PULSE 77; RESP 16; TEMP 37; O2SAT 97
--- NOTE | 2024-09-07 21:22 | PC.NURSE ---
Patient refused HS medications this evening. Patient states that her medications are making her too tired, and all she has done today is sleep. This RN reviewed medications and educated patient that her muscle relaxer is most likely making her tired, and asked if she would at least take her Eliquis. Patient verbalizes understanding that Eliquis is a blood thinner, but states she still thinks it will make her sleepy, and that she will take her medication when she is ready to go to sleep. When this RN re-entered the room to offer patient the Eliquis again, patient was sleeping. Will offer the Eliquis one more time this evening, as long as it falls within an appropriate time window for administration.
--- NOTE | 2024-09-07 22:39 | PC.NURSE ---
This RN went into patient's room to ask her to take her Eliquis again. Pt stated I don't want no medication I'm trying to get some sleep! Patient then stated she would take it later, patient informed later will be too late to take it. Patient states she's not taking any medication then.
[2024-09-08] VITALS (10 sets, daily range): BP systolic 110–149; BP diastolic 56–81; PULSE 68–84; RESP 16; TEMP 36.3–37.1; O2SAT 95–100
[2024-09-08 07:18] LABS: Hematocrit 21.7 % (37.0-47.0); Immature Platelet Fraction Pct 2.5 % (0.9-11.2); Mean Corpuscular Volume 60.1 fl (80-100); Platelet Count Result 340 k/mm3 (150-375); Red Blood Count 3.61 M/mm3 (4.2-5.4); Red Cell Distribution Width 20.3 % (11.5-14.5); White Blood Count 7.9 K/mm3 (4.5-10.0)
[2024-09-08] MEDS: GABAPENTIN 300 MG CAPSULE PO ×3 (07:23→20:05)
[2024-09-08 07:25] LABS: Anion Gap 7 mmol/L (4-12); Blood Urea Nitrogen 14 mg/dL (7-17); Calcium 9.1 mg/dL (8.4-10.2); Carbon Dioxide 23 mmol/L (22-30); Chloride 105 mmol/L (98-107); Estimated CRCL calculation 36 ml/min; Estimated Glomerular Filt Rate 60; Glucose 79 mg/dL (65-110); Magnesium 2.1 mg/dL (1.6-2.3); Potassium 4.4 mmol/L (3.4-5.0); Sodium 135 mmol/L (137-145)
[2024-09-08 07:27] LABS: Hemoglobin 6.5 g/dL (12.0-15.0)
[2024-09-08] MEDS: IRON SUCROSE COMPLEX 200 MG, IRON SUCROSE COMPLEX 100 MG in SODIUM CHLORIDE 0.9% IV 250 ML 176.67 MG IVPB (08:11)
[2024-09-08] MEDS: LIDOCAINE 5% PATCH 1 PATCH TOPICAL (09:01)
[2024-09-08] MEDS: LIDOCAINE 5% PATCH 2 PATCH TRANSDERM (09:01)
[2024-09-08] MEDS: THIAMINE HCL 100 MG TABLET PO (09:04)
[2024-09-08] MEDS: amLODIPine BESYLATE 10 MG TABLET PO (09:04)
[2024-09-08] MEDS: FAMOTIDINE 20 MG TABLET PO ×2 (09:04→20:06)
[2024-09-08] MEDS: APIXABAN 5 MG TABLET PO ×2 (09:05→20:06)
[2024-09-08] MEDS: SENNA/DOCUSATE SODIUM TABLET 1 TAB PO ×2 (09:05→17:25)
[2024-09-08] MEDS: ISOSORBIDE MONONITRATE 60 MG TAB.ER.24H PO (09:05)
[2024-09-08] MEDS: LOSARTAN POTASSIUM 100 MG TABLET PO (09:05)
[2024-09-08] MEDS: MULTIVIT/MIN/PREN/FOL AC/IRON TABLET 1 TAB PO (09:05)
[2024-09-08] MEDS: BACLOFEN 10 MG TABLET PO ×3 (10:17→20:06)
[2024-09-08] MEDS: SODIUM CHLORIDE 0.9% IV 250 ML 30 ML IV CONT (10:35)
--- NOTE | 2024-09-08 11:52 | PCOTNOTE ---
Patient unavailable for OT services at this time. Patient getting blood, and eating lunch, will try back at a later time.
--- NOTE | 2024-09-08 14:57 | PC.NURSE ---
i unit PRBC finished at 1415. vital signs charted at 1456 were [id number].
--- NOTE | 2024-09-08 15:52 | P.PNIM_ITS ---
Progress Note: A&P Assessment and Plan (1) Anemia: Code(s): D64.9 - Anemia, unspecified Status: Acute (2) Debility, unspecified: Code(s): R53.81 - Other malaise Status: Acute (3) KATIE (acute kidney injury): Code(s): N17.9 - Acute kidney failure, unspecified Status: Acute (4) Hyponatremia: Code(s): E87.1 - Hypo-osmolality and hyponatremia Status: Acute (5) HTN (hypertension), benign: Code(s): I10 - Essential (primary) hypertension Status: Acute (6) Atrial fibrillation: Code(s): I48.91 - Unspecified atrial fibrillation Status: Acute (7) Generalized weakness: Code(s): R53.1 - Weakness Status: Acute Plan patient is 69 y/o AA female with PMHX of HTN, HDL, atril fibrilation on Eliquis, chronic pain, presented with generalized weakness and pain, patient is also found to have iron deficiency anemia, her iron is low patient is being transfused, patient concern is pain and weakness, currently receiving hydrocodone, baclofen, and Lidoderm patches, will have PT/ OT evaluate the patient patient and further recommendations to follow. This morning patient stats she is better compared to when she arrive, patient randle spected iron deficiency anemia, will receive 3rd dose of iron today, her hgb dropped to 6.5, denies any abdominal pain, n/v, rectal bleeding, will transfused 1 unit PRBC, will do stool hemoccult, patient pain is persisting, will continue baclofen, Lidoderm patches, and hydrocodone PRN, will have PT/OT work with patient, patient will benefit going to rehab. Subjective Date/time seen: 09/08/24 15:52 Interval history: patient is 69 y/o AA female with PMHX of HTN, HDL, atril fibrilation on Eliquis, chronic pain, presented with generalized weakness and pain, patient is also found to have iron deficiency anemia, her iron is low patient is being transfused, patient concern is pain and weakness, currently receiving hydrocodone, baclofen, and lidoderm patches, will have PT/ OT evaluate the patient patient and further recommendations to follow. This morning patient stats she is better compared to when she arrive, patient suspected iron deficiency anemia, will receive 3rd dose of iron today, her hgb dropped to 6.5, denies any abdominal pain, n/v, rectal bleeding, will transfused 1 unit PRBC, will do stool hemoccult, patient pain is persisting, will continue baclofen, Lidoderm patches, and hydrocodone PRN, will have PT/OT work with patient, patient will benefit going to rehab. Review of Systems Review of Systems: A 10 system review of systems was completed on the patient and is negative except for what is stated in the HPI. Nursing and ancillary documentation was reviewed. Exam Narrative: Patient is comfortable, NAD, pain HEENT: eyes are clear and none icteric LUNGS:CTA HEART: RR S1S2 ABD: BS+, Soft and nontender Lower extremities: no edema SKIN: nonjaundiced Neuro: grossly intact. Objective Data Vital Signs Vital Signs: Vital Signs - 24 hr 09/07/24 20:00 09/07/24 21:11 09/08/24 05:35 Temperature 37.0 C 37.0 C Pulse Rate 77 76 Respiratory Rate 16 16 Blood Pressure 100/46 L 149/56 H Pulse Oximetry 97 95 Oxygen Delivery Room Air 09/08/24 09:05 09/08/24 09:05 09/08/24 10:55 Temperature 36.9 C Pulse Rate 79 68 Respiratory Rate 16 Blood Pressure 117/72 134/67 Pulse Oximetry 100 98 Oxygen Delivery Room Air 09/08/24 11:15 09/08/24 12:15 09/08/24 13:15 Temperature 37.1 C 36.7 C 36.8 C Pulse Rate 74 73 70 Respiratory Rate 16 16 16 Blood Pressure 146/81 H 110/63 110/63 Pulse Oximetry 100 99 Oxygen Delivery 09/08/24 14:15 09/08/24 14:55 Temperature 36.8 C 36.8 C Pulse Rate 72 72 Respiratory Rate 16 16 Blood Pressure 116/66 116/66 Pulse Oximetry 97 97 Oxygen Delivery Intake/Output Intake/Output: Intake & Output 09/05/24 09/06/24 09/07/24 09/08/24 23:59 23:59 23:59 23:59 Intake Total 1440 721 586 Output Total 300 1100 300 Balance 1140 -379 286 Meds/Results Medications: Active Medications Generic Name Dose Route Start Last Admin Trade Name Freq PRN Reason Stop Dose Admin Hydrocodone Bitart/Acetaminophen 1 tab 09/06/24 04:46 09/07/24 14:09 Hydrocodone/Acetaminophen (*Crx) 5-325 Mg Tablet PO 1 tab Q6H PRN Administration pain 7-10 Amlodipine Besylate 10 mg 09/06/24 09:00 09/08/24 09:04 Amlodipine Besylate 10 Mg Tablet PO 10 mg DAILY YONY Administration Apixaban 5 mg 09/06/24 09:00 09/08/24 09:05 Apixaban 5 Mg Tablet PO 10/06/24 08:59 5 mg Q12H YONY Administration Atorvastatin Calcium 10 mg 09/06/24 18:00 09/07/24 17:17 Atorvastatin 10 Mg Tablet PO 10 mg QPM YONY Administration Baclofen 10 mg 09/07/24 16:00 09/08/24 10:17 Baclofen 10 Mg Tablet PO 10 mg Q6H YONY Administration Citalopram Hydrobromide 10 mg 09/08/24 21:00 Citalopram Hydrobromide 10 Mg Tablet PO HS YONY Famotidine 20 mg 09/08/24 09:00 09/08/24 09:04 Famotidine 20 Mg Tablet PO 20 mg Q12HR YONY Administration Gabapentin 300 mg 09/06/24 06:00 09/08/24 13:52 Gabapentin 300 Mg Capsule PO 300 mg Q8HR YONY Administration Isosorbide Mononitrate 60 mg 09/06/24 09:00 09/08/24 09:05 Isosorbide Mononitrate 60 Mg Tab.Er.24h PO 60 mg DAILY YONY Administration Lidocaine 1 patch 09/06/24 09:00 09/08/24 09:01 Lidocaine 5% Patch TOPICAL 1 patch Q24H YONY Administration Lidocaine 2 patch 09/07/24 10:05 09/08/24 09:01 Lidocaine 5% Patch TRANSDERM 2 patch DAILY YONY Administration Loratadine 10 mg 09/08/24 21:00 Loratadine 10 Mg Tablet PO HS YONY Losartan Potassium 100 mg 09/06/24 09:00 09/08/24 09:05 Losartan Potassium 100 Mg Tablet PO 100 mg DAILY YONY Administration Ondansetron HCl 4 mg 09/06/24 03:01 09/06/24 14:25 Ondansetron Inj 4 Mg/2 Ml Vial IV PUSH 4 mg Q4H PRN Administration Nausea Vit/Calcium/Iron/Folic Ac 1 tab 09/06/24 09:00 09/08/24 09:05 Multivit/Min/Pren/Fol Ac/Iron Tablet PO 1 tab DAILY YONY Administration Senna/Docusate Sodium 1 tab 09/06/24 09:00 09/08/24 09:05 Senna/Docusate Sodium Tablet PO 1 tab BID YONY Administration Sertraline HCl 100 mg 09/08/24 21:00 Sertraline Hcl 50 Mg Tablet PO HS YONY Sodium Chloride 2 spray 09/06/24 07:56 Saline 0.65% Kendrick Soln 44 Ml Btl NASAL BID PRN nasal congestion Thiamine HCl 100 mg 09/06/24 09:00 09/08/24 09:04 Thiamine Hcl 100 Mg Tablet PO 100 mg QAM YONY Administration Radiology Results: ITS Impressions Chest X-Ray 09/06/24 06:07 Impression: Clear lungs. Labs Labs: Laboratory Results - last 24 hr 09/08/24 09/08/24 07:02 08:05 WBC 7.9 RBC 3.61 L Hgb 6.5 L* Hct 21.7 L MCV 60.1 L MCH 18.0 L MCHC 30.0 L RDW 20.3 H Plt Count 340 MPV 10.0 % Immature Plt Fraction 2.5 Sodium 135 L Potassium 4.4 Chloride 105 Carbon Dioxide 23 Anion Gap 7 BUN 14 Creatinine 0.92 Estim Creat Clear Calc 36 Estimated GFR 60 Glucose 79 Calcium 9.1 Magnesium 2.1 Blood Type A Positive Antibody Screen Negative Crossmatch See Detail Quality VTE Prophylaxis VTE prophylaxis: pharmacologic ordered
[2024-09-08] MEDS: ATORVASTATIN 10 MG TABLET PO (17:24)
[2024-09-08] MEDS: polyethylene glycoL 3350 17 GM POWD.PACK PO (18:44)
[2024-09-08] MEDS: SERTRALINE HCL 50 MG TABLET 100 MG PO (20:05)
[2024-09-08] MEDS: CITALOPRAM HYDROBROMIDE 10 MG TABLET PO (20:05)
[2024-09-08] MEDS: LORATADINE 10 MG TABLET PO (20:06)
[2024-09-08] MEDS: HYDROcodone/acetaminophen (*CRX) 5-325 MG TABLET 1 TAB PO (20:07)
[2024-09-09] MEDS: HYDROcodone/acetaminophen (*CRX) 5-325 MG TABLET 1 TAB PO ×3 (02:14→23:28)
[2024-09-09] MEDS: GABAPENTIN 300 MG CAPSULE PO ×3 (05:27→21:40)
[2024-09-09] MEDS: BACLOFEN 10 MG TABLET PO ×3 (05:27→21:40)
[2024-09-09 06:13] VITALS: BP 149/82; PULSE 72; RESP 20; TEMP 36.6; O2SAT 100
[2024-09-09 06:43] LABS: Hematocrit 28.1 % (37.0-47.0); Hemoglobin 8.7 g/dL (12.0-15.0); Immature Platelet Fraction Pct 2.8 % (0.9-11.2); Mean Corpuscular Volume 64.4 fl (80-100); Mean Platelet Volume 9.8 fl (7.4-10.4); Platelet Count Result 325 k/mm3 (150-375); Red Blood Count 4.36 M/mm3 (4.2-5.4); Red Cell Distribution Width 23.8 % (11.5-14.5); White Blood Count 10.1 K/mm3 (4.5-10.0)
[2024-09-09 06:56] LABS: Anion Gap 8 mmol/L (4-12); Blood Urea Nitrogen 12 mg/dL (7-17); Calcium 9.6 mg/dL (8.4-10.2); Carbon Dioxide 26 mmol/L (22-30); Chloride 103 mmol/L (98-107); Estimated CRCL calculation 50 ml/min; Estimated Glomerular Filt Rate > 60; Glucose 91 mg/dL (65-110); Magnesium 1.8 mg/dL (1.6-2.3); Potassium 4.5 mmol/L (3.4-5.0); Sodium 137 mmol/L (137-145)
[2024-09-09] MEDS: SENNA/DOCUSATE SODIUM TABLET 2 TAB PO (09:29)
[2024-09-09 09:30] VITALS: BP 154/72; PULSE 70; O2SAT 100
[2024-09-09] MEDS: APIXABAN 5 MG TABLET PO ×2 (09:30→21:41)
[2024-09-09] MEDS: ISOSORBIDE MONONITRATE 60 MG TAB.ER.24H PO (09:30)
[2024-09-09] MEDS: THIAMINE HCL 100 MG TABLET PO (09:30)
[2024-09-09] MEDS: LOSARTAN POTASSIUM 100 MG TABLET PO (09:30)
[2024-09-09] MEDS: LIDOCAINE 5% PATCH 1 PATCH TOPICAL (09:30)
[2024-09-09] MEDS: polyethylene glycoL 3350 17 GM POWD.PACK PO (09:30)
[2024-09-09] MEDS: MULTIVIT/MIN/PREN/FOL AC/IRON TABLET 1 TAB PO (09:30)
[2024-09-09] MEDS: amLODIPine BESYLATE 10 MG TABLET PO (09:30)
[2024-09-09] MEDS: FAMOTIDINE 20 MG TABLET PO ×2 (09:30→21:41)
[2024-09-09] MEDS: LIDOCAINE 5% PATCH 2 PATCH TRANSDERM (09:30)
[2024-09-09 12:41] LABS: IFOB Positive Control Positive; Immunochemical Fecal Occult Bl Positive (N)
[2024-09-09 14:00] VITALS: BP 128/65; PULSE 74; RESP 18; TEMP 36.4; O2SAT 100
--- NOTE | 2024-09-09 16:31 | P.PNIM_ITS ---
Progress Note: A&P Assessment and Plan (1) Anemia: Code(s): D64.9 - Anemia, unspecified Status: Acute (2) Debility, unspecified: Code(s): R53.81 - Other malaise Status: Acute (3) KATIE (acute kidney injury): Code(s): N17.9 - Acute kidney failure, unspecified Status: Acute (4) Hyponatremia: Code(s): E87.1 - Hypo-osmolality and hyponatremia Status: Acute (5) HTN (hypertension), benign: Code(s): I10 - Essential (primary) hypertension Status: Acute (6) Atrial fibrillation: Code(s): I48.91 - Unspecified atrial fibrillation Status: Acute (7) Generalized weakness: Code(s): R53.1 - Weakness Status: Acute Plan patient is 69 y/o AA female with PMHX of HTN, HDL, atril fibrilation on Eliquis, chronic pain, presented with generalized weakness and pain, patient is also found to have iron deficiency anemia, her iron is low patient is being transfused, patient concern is pain and weakness, currently receiving hydrocodone, baclofen, and Lidoderm patches, will have PT/ OT evaluate the patient patient and further recommendations to follow. This morning patient stats she is better compared to when she arrive, patient randle spected iron deficiency anemia, will receive 3rd dose of iron, on 09/08 her hgb dropped to 6.5, denied any abdominal pain, n/v, rectal bleeding, transfused 1 unit PRBC, today her Hgb is 8.7, stool hemoccult is positive, will consult GI, patient pain is persisting, will continue baclofen, Lidoderm patches, and hydrocodone PRN, will have PT/OT work with patient, patient will benefit going to rehab. Subjective Date/time seen: 09/09/24 16:31 Interval history: patient is 69 y/o AA female with PMHX of HTN, HDL, atril fibrilation on Eliquis, chronic pain, presented with generalized weakness and pain, patient is also found to have iron deficiency anemia, her iron is low patient is being transfused, patient concern is pain and weakness, currently receiving hydrocodone, baclofen, and lidoderm patches, will have PT/ OT evaluate the patient patient and further recommendations to follow. This morning patient stats she is better compared to when she arrive, patient suspected iron deficiency anemia, will receive 3rd dose of iron, on 09/08 her hgb dropped to 6.5, denied any abdominal pain, n/v, rectal bleeding, transfused 1 unit PRBC, today her Hgb is 8.7, stool hemoccult is positive, will consult GI, patient pain is persisting, will continue baclofen, Lidoderm patches, and hydrocodone PRN, will have PT/OT work with patient, patient will benefit going to rehab. Review of Systems Review of Systems: A 10 system review of systems was completed on the patient and is negative except for what is stated in the HPI. Nursing and ancillary documentation was reviewed. Exam Narrative: Patient is comfortable, NAD, pain HEENT: eyes are clear and none icteric LUNGS:CTA HEART: RR S1S2 ABD: BS+, Soft and nontender Lower extremities: no edema SKIN: nonjaundiced Neuro: grossly intact. Objective Data Vital Signs Vital Signs: Vital Signs - 24 hr 09/08/24 20:00 09/08/24 20:14 09/08/24 21:38 Temperature 36.3 C L Pulse Rate 84 Respiratory Rate 16 Blood Pressure 146/56 H Pulse Oximetry 96 96 Oxygen Delivery Room Air Room Air 09/09/24 06:13 09/09/24 09:30 09/09/24 09:30 Temperature 36.6 C Pulse Rate 72 70 Respiratory Rate 20 Blood Pressure 149/82 H 154/72 H Pulse Oximetry 100 100 Oxygen Delivery Room Air 09/09/24 14:00 Temperature 36.4 C L Pulse Rate 74 Respiratory Rate 18 Blood Pressure 128/65 Pulse Oximetry 100 Oxygen Delivery Intake/Output Intake/Output: Intake & Output 09/06/24 09/07/24 09/08/24 09/09/24 23:59 23:59 23:59 23:59 Intake Total 5979 497 6343 1300 Output Total 300 1100 1050 1052 Balance 1140 -379 572 248 Meds/Results Medications: Active Medications Generic Name Dose Route Start Last Admin Trade Name Freq PRN Reason Stop Dose Admin Hydrocodone Bitart/Acetaminophen 1 tab 09/06/24 04:46 09/09/24 13:25 Hydrocodone/Acetaminophen (*Crx) 5-325 Mg Tablet PO 1 tab Q6H PRN Administration pain 7-10 Amlodipine Besylate 10 mg 09/06/24 09:00 09/09/24 09:30 Amlodipine Besylate 10 Mg Tablet PO 10 mg DAILY YONY Administration Apixaban 5 mg 09/06/24 09:00 09/09/24 09:30 Apixaban 5 Mg Tablet PO 10/06/24 08:59 5 mg Q12H YONY Administration Atorvastatin Calcium 10 mg 09/06/24 18:00 09/08/24 17:24 Atorvastatin 10 Mg Tablet PO 10 mg QPM YONY Administration Baclofen 10 mg 09/07/24 16:00 09/09/24 09:30 Baclofen 10 Mg Tablet PO 10 mg Q6H YONY Administration Citalopram Hydrobromide 10 mg 09/08/24 21:00 09/08/24 20:05 Citalopram Hydrobromide 10 Mg Tablet PO 10 mg HS YONY Administration Famotidine 20 mg 09/08/24 09:00 09/09/24 09:30 Famotidine 20 Mg Tablet PO 20 mg Q12HR YONY Administration Gabapentin 300 mg 09/06/24 06:00 09/09/24 13:23 Gabapentin 300 Mg Capsule PO 300 mg Q8HR YONY Administration Isosorbide Mononitrate 60 mg 09/06/24 09:00 09/09/24 09:30 Isosorbide Mononitrate 60 Mg Tab.Er.24h PO 60 mg DAILY YONY Administration Lidocaine 1 patch 09/06/24 09:00 09/09/24 09:30 Lidocaine 5% Patch TOPICAL 1 patch Q24H YONY Administration Lidocaine 2 patch 09/07/24 10:05 09/09/24 09:30 Lidocaine 5% Patch TRANSDERM 2 patch DAILY YONY Administration Loratadine 10 mg 09/08/24 21:00 09/08/24 20:06 Loratadine 10 Mg Tablet PO 10 mg HS YONY Administration Losartan Potassium 100 mg 09/06/24 09:00 09/09/24 09:30 Losartan Potassium 100 Mg Tablet PO 100 mg DAILY YONY Administration Ondansetron HCl 4 mg 09/06/24 03:01 09/06/24 14:25 Ondansetron Inj 4 Mg/2 Ml Vial IV PUSH 4 mg Q4H PRN Administration Nausea Polyethylene Glycol 17 gm 09/08/24 17:36 09/09/24 09:30 Polyethylene Glycol 3350 17 Gm Powd.Pack PO 17 gm QAM YONY Administration Vit/Calcium/Iron/Folic Ac 1 tab 03/04/25 09:00 09/09/24 09:30 Multivit/Min/Pren/Fol Ac/Iron Tablet PO 1 tab DAILY YONY Administration Senna/Docusate Sodium 2 tab 09/09/24 09:00 09/09/24 09:29 Senna/Docusate Sodium Tablet PO 2 tab BID YONY Administration Sertraline HCl 100 mg 09/08/24 21:00 09/08/24 20:05 Sertraline Hcl 50 Mg Tablet PO 100 mg HS YONY Administration Sodium Chloride 2 spray 09/06/24 07:56 Saline 0.65% Kendrick Soln 44 Ml Btl NASAL BID PRN nasal congestion Thiamine HCl 100 mg 09/06/24 09:00 09/09/24 09:30 Thiamine Hcl 100 Mg Tablet PO 100 mg QAM YONY Administration Radiology Results: ITS Impressions Chest X-Ray 09/06/24 06:07 Impression: Clear lungs. Labs Labs: Laboratory Results - last 24 hr 09/09/24 09/09/24 06:25 12:00 WBC 10.1 H RBC 4.36 Hgb 8.7 L Hct 28.1 L MCV 64.4 L D MCH 20.0 L D MCHC 31.0 L RDW 23.8 H Plt Count 325 MPV 9.8 % Immature Plt Fraction 2.8 Sodium 137 Potassium 4.5 Chloride 103 Carbon Dioxide 26 Anion Gap 8 BUN 12 Creatinine 0.64 L Estim Creat Clear Calc 50 Estimated GFR > 60 Glucose 91 Calcium 9.6 Magnesium 1.8 Stl Occult Blood (IFOB) Positive H Quality VTE Prophylaxis VTE prophylaxis: pharmacologic ordered
[2024-09-09] MEDS: ATORVASTATIN 10 MG TABLET PO (17:21)
[2024-09-09] MEDS: LORATADINE 10 MG TABLET PO (21:40)
[2024-09-09] MEDS: CITALOPRAM HYDROBROMIDE 10 MG TABLET PO (21:41)
[2024-09-09 21:52] VITALS: O2SAT 100
[2024-09-09 22:00] VITALS: BP 156/97; PULSE 72; RESP 18; TEMP 36.8; O2SAT 100
[2024-09-10] MEDS: BACLOFEN 10 MG TABLET PO ×4 (03:55→20:31)
[2024-09-10] MEDS: GABAPENTIN 300 MG CAPSULE PO ×3 (05:42→20:31)
[2024-09-10 06:00] VITALS: BP 148/91; PULSE 70; RESP 18; TEMP 36.8; O2SAT 99
[2024-09-10 06:31] LABS: Hematocrit 28.6 % (37.0-47.0); Hemoglobin 8.9 g/dL (12.0-15.0); Immature Platelet Fraction Pct 2.7 % (0.9-11.2); Mean Corpuscular HGB Conc 31.1 g/dl (32-36); Mean Corpuscular Hemoglobin 20.2 pg (26-34); Mean Corpuscular Volume 64.9 fl (80-100); Mean Platelet Volume 9.8 fl (7.4-10.4); Platelet Count Result 317 k/mm3 (150-375); Red Blood Count 4.41 M/mm3 (4.2-5.4); Red Cell Distribution Width 25.2 % (11.5-14.5); White Blood Count 10.1 K/mm3 (4.5-10.0)
[2024-09-10 06:43] LABS: Sodium 134 mmol/L (137-145)
[2024-09-10 06:48] LABS: Anion Gap 6 mmol/L (4-12); Blood Urea Nitrogen 11 mg/dL (7-17); Calcium 9.8 mg/dL (8.4-10.2); Carbon Dioxide 27 mmol/L (22-30); Chloride 101 mmol/L (98-107); Estimated CRCL calculation 53 ml/min; Estimated Glomerular Filt Rate > 60; Glucose 89 mg/dL (65-110); Magnesium 1.7 mg/dL (1.6-2.3)
[2024-09-10 08:00] VITALS: PULSE 70; RESP 18; O2SAT 99
[2024-09-10] MEDS: amLODIPine BESYLATE 10 MG TABLET PO (08:55)
[2024-09-10] MEDS: THIAMINE HCL 100 MG TABLET PO (08:55)
[2024-09-10] MEDS: LOSARTAN POTASSIUM 100 MG TABLET PO (08:55)
[2024-09-10] MEDS: MULTIVIT/MIN/PREN/FOL AC/IRON TABLET 1 TAB PO (08:55)
[2024-09-10] MEDS: APIXABAN 5 MG TABLET PO ×2 (08:55→20:31)
[2024-09-10] MEDS: FAMOTIDINE 20 MG TABLET PO ×2 (08:55→20:31)
[2024-09-10] MEDS: ISOSORBIDE MONONITRATE 60 MG TAB.ER.24H PO (08:56)
[2024-09-10] MEDS: HYDROcodone/acetaminophen (*CRX) 5-325 MG TABLET 1 TAB PO ×2 (08:59→17:14)
--- NOTE | 2024-09-10 12:27 | P.CONGI_ITS ---
Assessment and Plan Assessment and plan (1) Acute on chronic anemia: Code(s): D64.9 - Anemia, unspecified Status: Acute Assessment and Plan: wonder if could be aggravated by use of eliquis she claims that had normal colonoscopy last year consider to do EGD Thursday, no signs of overt gib but had + FOBT (2) Occult blood in stools: Code(s): R19.5 - Other fecal abnormalities Status: Acute Assessment and Plan: monitor (3) Atrial fibrillation: Code(s): I48.91 - Unspecified atrial fibrillation Status: Acute (4) Generalized weakness: Code(s): R53.1 - Weakness Status: Acute (5) Chronic anticoagulation: Code(s): Z79.01 - USP (current) use of anticoagulants Status: Acute Assessment and Plan: on hold for now GI Consult Note Consult date/time: 09/10/24 12:27 Reason for consult: fobt, anemia HPI: Alissa Cabral is a 69 year old female with history of HTN, HDL, atrial fibrilation on Eliquis, chronic pain who presents emergency department with worsening lower extremity weakness. This has been going on for few months the patient but not having difficulty walking because she is weaker. Labs here with iron deficiency anemia, hgb 6.5 and given blood transfusion. She says that had colonoscopy last year elsewhere. Denies abdominal pain or obvious GIB. FOBT was positive. Review of Systems 2 Constitutional: Constitutional: Reports fatigue and Reports weakness Eyes: Eyes: Denies blurry vision ENT: Reports Normal hearing present Cardiovascular: Cardiovascular: Denies chest pain Respiratory: Respiratory: Denies cough Gastrointestinal: Gastrointestinal: Denies abdominal pain Genitourinary: Genitourinary: Denies urinary urgency Musculoskeletal: Musculoskeletal: Denies neck pain Integumentary/Breasts: Skin/Breast: Denies rash Neurologic: Denies Abnormal speech present Psychiatric: Psychiatric: Denies behavioral changes [facility] Past Medical History Medical History (Updated 09/10/24 @ 12:32 by Cuauhtemoc Carlson MD) Chronic anticoagulation Occult blood in stools Acute on chronic anemia Family History Family History (Updated 09/06/24 @ 07:22 by Ric Jalloh RN) Mother Cancer Grandparent Diabetes mellitus Social History Social History Smoking packs per day: 0.5 Smoking cigarettes per day: 10.0 Smoking status: Former smoker Smoking end date: 08/09/24 Alcohol intake: current Drinks per week: 25 Substance use: current Substance use type: marijuana Do You Feel Safe in your Home?: Yes Lack of Transportation: No Lack of Food: Often True Current Housing: I Do Not Have Housing Concerned About Future Housing: No Difficulty Paying Gas/Electric Bills: No Difficulty Paying for Meds: No Currently Unemployed: No Education: High School Diploma/GED Difficulty w/ Childcare or Family Care: No Spiritual care concerns: No Meds Home Medications and Allergies Home Medications ?Medication ?Instructions ?Recorded ?Confirmed ?Type amlodipine 10 mg tablet 10 mg PO DAILY 09/06/24 09/06/24 History apixaban 5 mg (74 tabs) tablets in 5 mg PO Q12H 09/06/24 09/06/24 History a dose pack (EliquCraftsvilla DVT-PE Treat 30D Start) atorvastatin 10 mg tablet 10 mg PO QPM 09/06/24 09/06/24 History baclofen 10 mg tablet 10 mg PO Q6H PRN muscle spasm 09/06/24 09/06/24 History cetirizine 10 mg tablet 10 mg PO DAILY 09/06/24 09/07/24 History citalopram 10 mg tablet 10 mg PO DAILY 09/06/24 09/06/24 History famotidine 20 mg tablet 20 mg PO BID 09/06/24 09/07/24 History gabapentin 300 mg capsule 300 mg PO Q8H 09/06/24 09/06/24 History hydralazine 100 mg tablet 100 mg PO Q12H 09/06/24 09/06/24 History hydrocodone 5 mg-acetaminophen 325 1 tablet PO Q6H PRN pain 09/06/24 09/06/24 History mg tablet isosorbide mononitrate 60 mg 60 mg PO DAILY 09/06/24 09/06/24 History tablet,extended release 24 hr lidocaine 5 % topical patch 1 patch topical Q24H 09/06/24 09/06/24 History losartan 100 mg tablet 100 mg PO DAILY 09/06/24 09/06/24 History sennosides 8.6 mg-docusate sodium 1 tab-cap PO BID 09/06/24 09/06/24 History 50 mg tablet (Stimulant Laxative Plus) sertraline 100 mg tablet 100 mg PO Q24H 09/06/24 09/06/24 History sodium chloride 0.65 % nasal spray 2 spray intranasal BID PRN nasal 09/06/24 09/06/24 History aerosol (Deep Sea Nasal) congestion Allergies Allergy/AdvReac Type Severity Reaction Status Date / Time No Known Allergies Allergy Verified 09/06/24 04:12 Vital Signs Vital Signs - 24 hr 09/09/24 14:00 09/09/24 20:00 09/09/24 21:52 Temperature 97.5 F L Pulse Rate 74 Respiratory Rate 18 Blood Pressure 128/65 Pulse Oximetry 100 100 Oxygen Delivery Room Air Room Air 09/09/24 22:00 09/10/24 06:00 Temperature 98.2 F 98.2 F Pulse Rate 72 70 Respiratory Rate 18 18 Blood Pressure 156/97 H 148/91 H Pulse Oximetry 100 99 Oxygen Delivery Exam 2 Const: General: comfortable and no acute distress HENMT: Face/Nose/Sinus: Normal nares present Eyes: General: appearance normal, both eyes and all related structures Neck: Neck: supple Resp: Auscultation: clear to auscultation bilaterally Cardio: Rate: regular rate Rhythm: regular rhythm GI: Inspection: non-distended GI Palp: Yes Soft to palpation and No Tenderness to palpation present (GI) Auscultation: normal bowel sounds Skin: General skin exam: normal color Neuro: Speech: normal speech Other: b/l leg weakness Extrem: General: no edema Psych: Mental Status: mental status grossly normal Results Labs 09/10/24 06:09 09/10/24 06:09 Labs: Short CBC 09/10/24 Range/Units 06:09 WBC 10.1 H (4.5-10.0) K/mm3 Hgb 8.9 L (12.0-15.0) g/dL Hct 28.6 L (37.0-47.0) % Plt Count 317 (150-375) k/mm3 [facility] 09/10/24 06:09 Sodium 134 L Potassium 5.0 Chloride 101 Carbon Dioxide 27 BUN 11 Creatinine 0.61 L Glucose 89 Calcium 9.8
--- NOTE | 2024-09-10 12:45 | P.PNIM_ITS ---
Progress Note: A&P Assessment and Plan (1) Anemia: Code(s): D64.9 - Anemia, unspecified Status: Acute (2) Debility, unspecified: Code(s): R53.81 - Other malaise Status: Acute (3) KATIE (acute kidney injury): Code(s): N17.9 - Acute kidney failure, unspecified Status: Acute (4) Hyponatremia: Code(s): E87.1 - Hypo-osmolality and hyponatremia Status: Acute (5) HTN (hypertension), benign: Code(s): I10 - Essential (primary) hypertension Status: Acute (6) Atrial fibrillation: Code(s): I48.91 - Unspecified atrial fibrillation Status: Acute (7) Generalized weakness: Code(s): R53.1 - Weakness Status: Acute Plan patient is 69 y/o AA female with PMHX of HTN, HDL, atril fibrilation on Eliquis, chronic pain, presented with generalized weakness and pain, patient is also found to have iron deficiency anemia, her iron is low patient is being transfused, patient concern is pain and weakness, currently receiving hydrocodone, baclofen, and Lidoderm patches, will have PT/ OT evaluate the patient patient and further recommendations to follow. This morning patient stats she is better compared to when she arrive, patient randle spected iron deficiency anemia, will receive 3rd dose of iron, on 09/08 her hgb dropped to 6.5, denied any abdominal pain, n/v, rectal bleeding, transfused 1 unit PRBC, today her Hgb is 8.7, stool hemoccult is positive, today patient was seen by GI, patient had colonoscopy 1 yr ago which was normal, suspect patient anticoagulation may be causing her GI bleed however patient will EGD on Thursday, will follow up and plan, patient pain is persisting, will continue baclofen, Lidoderm patches, and hydrocodone PRN, will have PT/OT work with patient, patient will benefit going to rehab. Subjective Date/time seen: 09/10/24 12:45 Interval history: patient is 69 y/o AA female with PMHX of HTN, HDL, atril fibrilation on Eliquis, chronic pain, presented with generalized weakness and pain, patient is also found to have iron deficiency anemia, her iron is low patient is being transfused, patient concern is pain and weakness, currently receiving hydrocodone, baclofen, and lidoderm patches, will have PT/ OT evaluate the patient patient and further recommendations to follow. This morning patient stats she is better compared to when she arrive, patient suspected iron deficiency anemia, will receive 3rd dose of iron, on 09/08 her hgb dropped to 6.5, denied any abdominal pain, n/v, rectal bleeding, transfused 1 unit PRBC, today her Hgb is 8.7, stool hemoccult is positive, today patient was seen by GI, patient had colonoscopy 1 yr ago which was normal, suspect pat ient anticoagulation may be causing her GI bleed however patient will EGD on Thursday, will follow up and plan, patient pain is persisting, will continue baclofen, Lidoderm patches, and hydrocodone PRN, will have PT/OT work with patient, patient will benefit going to rehab. Review of Systems Review of Systems: A 10 system review of systems was completed on the patient and is negative except for what is stated in the HPI. Nursing and ancillary documentation was reviewed. Exam Narrative: Patient is comfortable, NAD, pain HEENT: eyes are clear and none icteric LUNGS:CTA HEART: RR S1S2 ABD: BS+, Soft and nontender Lower extremities: no edema SKIN: nonjaundiced Neuro: grossly intact. Objective Data Vital Signs Vital Signs: Vital Signs - 24 hr 09/09/24 14:00 09/09/24 20:00 09/09/24 21:52 Temperature 36.4 C L Pulse Rate 74 Respiratory Rate 18 Blood Pressure 128/65 Pulse Oximetry 100 100 Oxygen Delivery Room Air Room Air 09/09/24 22:00 09/10/24 06:00 Temperature 36.8 C 36.8 C Pulse Rate 72 70 Respiratory Rate 18 18 Blood Pressure 156/97 H 148/91 H Pulse Oximetry 100 99 Oxygen Delivery Intake/Output Intake/Output: Intake & Output 09/07/24 09/08/24 09/09/24 09/10/24 23:59 23:59 23:59 23:59 Intake Total 721 1622 1300 680 Output Total 1100 1050 1052 300 Balance -379 572 248 380 Meds/Results Medications: Active Medications Generic Name Dose Route Start Last Admin Trade Name Freq PRN Reason Stop Dose Admin Hydrocodone Bitart/Acetaminophen 1 tab 09/06/24 04:46 09/10/24 08:59 Hydrocodone/Acetaminophen (*Crx) 5-325 Mg Tablet PO 1 tab Q6H PRN Administration pain 7-10 Amlodipine Besylate 10 mg 09/06/24 09:00 09/10/24 08:55 Amlodipine Besylate 10 Mg Tablet PO 10 mg DAILY YONY Administration Apixaban 5 mg 09/06/24 09:00 09/10/24 08:55 Apixaban 5 Mg Tablet PO 10/06/24 08:59 5 mg Q12H YONY Administration Atorvastatin Calcium 10 mg 09/06/24 18:00 09/09/24 17:21 Atorvastatin 10 Mg Tablet PO 10 mg QPM YONY Administration Baclofen 10 mg 09/07/24 16:00 09/10/24 08:55 Baclofen 10 Mg Tablet PO 10 mg Q6H YONY Administration Citalopram Hydrobromide 10 mg 09/08/24 21:00 09/09/24 21:41 Citalopram Hydrobromide 10 Mg Tablet PO 10 mg HS YONY Administration Famotidine 20 mg 09/08/24 09:00 09/10/24 08:55 Famotidine 20 Mg Tablet PO 20 mg Q12HR YONY Administration Gabapentin 300 mg 09/06/24 06:00 09/10/24 05:42 Gabapentin 300 Mg Capsule PO 300 mg Q8HR YONY Administration Isosorbide Mononitrate 60 mg 09/06/24 09:00 09/10/24 08:56 Isosorbide Mononitrate 60 Mg Tab.Er.24h PO 60 mg DAILY YONY Administration Lidocaine 1 patch 09/06/24 09:00 09/10/24 08:55 Lidocaine 5% Patch TOPICAL Not Given Q24H YONY Lidocaine 2 patch 09/07/24 10:05 09/10/24 08:55 Lidocaine 5% Patch TRANSDERM Not Given DAILY YONY Loratadine 10 mg 09/08/24 21:00 09/09/24 21:40 Loratadine 10 Mg Tablet PO 10 mg HS YONY Administration Losartan Potassium 100 mg 09/06/24 09:00 09/10/24 08:55 Losartan Potassium 100 Mg Tablet PO 100 mg DAILY YONY Administration Ondansetron HCl 4 mg 09/06/24 03:01 09/06/24 14:25 Ondansetron Inj 4 Mg/2 Ml Vial IV PUSH 4 mg Q4H PRN Administration Nausea Polyethylene Glycol 17 gm 09/08/24 17:36 09/10/24 08:57 Polyethylene Glycol 3350 17 Gm Powd.Pack PO Not Given QAM YONY Vit/Calcium/Iron/Folic Ac 1 tab 09/06/24 09:00 09/10/24 08:55 Multivit/Min/Pren/Fol Ac/Iron Tablet PO 1 tab DAILY YONY Administration Senna/Docusate Sodium 2 tab 09/09/24 09:00 09/10/24 08:57 Senna/Docusate Sodium Tablet PO Not Given BID YONY Sertraline HCl 100 mg 09/08/24 21:00 09/09/24 21:48 Sertraline Hcl 50 Mg Tablet PO Not Given HS YONY Sodium Chloride 2 spray 09/06/24 07:56 Saline 0.65% Kendrick Soln 44 Ml Btl NASAL BID PRN nasal congestion Thiamine HCl 100 mg 09/06/24 09:00 09/10/24 08:55 Thiamine Hcl 100 Mg Tablet PO 100 mg QAM YONY Administration Radiology Results: ITS Impressions Chest X-Ray 09/06/24 06:07 Impression: Clear lungs. Labs Labs: Laboratory Results - last 24 hr 09/10/24 06:09 WBC 10.1 H RBC 4.41 Hgb 8.9 L Hct 28.6 L MCV 64.9 L MCH 20.2 L MCHC 31.1 L RDW 25.2 H Plt Count 317 MPV 9.8 % Immature Plt Fraction 2.7 Sodium 134 L Potassium 5.0 Chloride 101 Carbon Dioxide 27 Anion Gap 6 BUN 11 Creatinine 0.61 L Estim Creat Clear Calc 53 Estimated GFR > 60 Glucose 89 Calcium 9.8 Magnesium 1.7 Quality VTE Prophylaxis VTE prophylaxis: pharmacologic ordered
[2024-09-10 14:00] VITALS: BP 105/55; PULSE 74; RESP 16; TEMP 36.4; O2SAT 100
[2024-09-10] MEDS: ATORVASTATIN 10 MG TABLET PO (17:11)
[2024-09-10] MEDS: CITALOPRAM HYDROBROMIDE 10 MG TABLET PO (20:31)
[2024-09-10] MEDS: SERTRALINE HCL 50 MG TABLET 100 MG PO (20:31)
[2024-09-10] MEDS: LORATADINE 10 MG TABLET PO (20:31)
[2024-09-10 22:00] VITALS: BP 133/60; PULSE 70; RESP 18; TEMP 37; O2SAT 100
--- NOTE | 2024-09-11 03:04 | PC.NURSE ---
Daylight Savings Time For Daylight Savings Time Ending in the Fall - Clocks are moved back. For Daylight Savings Time Beginning in the Spring - Clocks are moved ahead. For [facility], the time of change occurs at 0200 hrs. Time is taken from the correctional supervising cook. This entry on the patient's chart recognizes the change in time reflected during documentation. Example: 2 entries for vital signs may be charted for 0200 hrs.
[2024-09-11] MEDS: BACLOFEN 10 MG TABLET PO ×3 (04:15→16:35)
[2024-09-11] MEDS: GABAPENTIN 300 MG CAPSULE PO ×3 (05:19→20:46)
[2024-09-11] MEDS: HYDROcodone/acetaminophen (*CRX) 5-325 MG TABLET 1 TAB PO (05:22)
[2024-09-11 06:00] VITALS: BP 156/63; PULSE 66; RESP 18; TEMP 36.9; O2SAT 98
[2024-09-11 06:39] LABS: Anion Gap 8 mmol/L (4-12); Blood Urea Nitrogen 11 mg/dL (7-17); Calcium 9.4 mg/dL (8.4-10.2); Carbon Dioxide 25 mmol/L (22-30); Chloride 100 mmol/L (98-107); Estimated CRCL calculation 50 ml/min; Estimated Glomerular Filt Rate > 60; Glucose 101 mg/dL (65-110); Hematocrit 28.3 % (37.0-47.0); Hemoglobin 8.6 g/dL (12.0-15.0); Immature Platelet Fraction Pct 2.5 % (0.9-11.2); Magnesium 1.5 mg/dL (1.6-2.3); Mean Corpuscular HGB Conc 30.4 g/dl (32-36); Mean Corpuscular Hemoglobin 19.8 pg (26-34); Mean Corpuscular Volume 65.1 fl (80-100); Mean Platelet Volume 9.9 fl (7.4-10.4); Platelet Count Result 344 k/mm3 (150-375); Potassium 4.4 mmol/L (3.4-5.0); Red Blood Count 4.35 M/mm3 (4.2-5.4); Red Cell Distribution Width 25.6 % (11.5-14.5); Sodium 133 mmol/L (137-145); White Blood Count 9.9 K/mm3 (4.5-10.0)
[2024-09-11] MEDS: MULTIVIT/MIN/PREN/FOL AC/IRON TABLET 1 TAB PO (08:41)
[2024-09-11] MEDS: THIAMINE HCL 100 MG TABLET PO (08:41)
[2024-09-11] MEDS: APIXABAN 5 MG TABLET PO ×2 (08:41→20:46)
[2024-09-11] MEDS: LOSARTAN POTASSIUM 100 MG TABLET PO (08:41)
[2024-09-11] MEDS: FAMOTIDINE 20 MG TABLET PO ×2 (08:41→20:46)
[2024-09-11] MEDS: ISOSORBIDE MONONITRATE 60 MG TAB.ER.24H PO (08:41)
[2024-09-11] MEDS: LIDOCAINE 5% PATCH 2 PATCH TRANSDERM (08:42)
[2024-09-11] MEDS: amLODIPine BESYLATE 10 MG TABLET PO (08:42)
[2024-09-11] MEDS: LIDOCAINE 5% PATCH 1 PATCH TOPICAL (08:42)
[2024-09-11] MEDS: MAGNESIUM SULF 2 GM/WATER 50ML 2 GM/50 ML BAG IVPB (08:46)
--- NOTE | 2024-09-11 12:57 | WPDGIPROGNO ---
Progress Note: A&P Assessment and Plan (1) Occult blood in stools: Code(s): R19.5 - Other fecal abnormalities Status: Acute Assessment and Plan: egd and colonoscopy tomorrow (she has ANUPAMA, she thinks that had colonoscopy last year however was told to repeat in 2 years ? unknown reason- patient is agreeable to repeat colonoscopy tomorrow) more recommendations after scope blood thinner on hold for now (2) Acute on chronic anemia: Code(s): D64.9 - Anemia, unspecified Status: Acute Assessment and Plan: s/p prbc and stable since (3) Chronic anticoagulation: Code(s): Z79.01 - [employer] (current) use of anticoagulants Status: Acute (4) Generalized weakness: Code(s): R53.1 - Weakness Status: Acute Subjective Date/time seen: 09/11/24 12:57 Interval history: no changes, denies gib still weak Review of Systems Review of Systems: All systems reviewed & are unremarkable except as noted in HPI and below Exam Const: General: comfortable and no acute distress HENMT: Face/Nose/Sinus: Normal nares present Eyes: General: appearance normal, both eyes and all related structures Neck: Neck: supple Resp: Auscultation: clear to auscultation bilaterally Cardio: Rate: regular rate Rhythm: regular rhythm GI: Inspection: non-distended GI Palp: Yes Soft to palpation and No Tenderness to palpation present (GI) Auscultation: normal bowel sounds Skin: General skin exam: normal color Neuro: Speech: normal speech Other: b/l leg weakness Extrem: General: no edema Psych: Mental Status: mental status grossly normal Objective Data Vital Signs Vital Signs: Vital Signs - 24 hr 09/10/24 14:00 09/10/24 20:00 09/10/24 22:00 Temperature 97.6 F 98.6 F Pulse Rate 74 70 Respiratory Rate 16 18 Blood Pressure 105/55 L 133/60 Pulse Oximetry 100 100 Oxygen Delivery Room Air 09/11/24 06:00 09/11/24 08:00 Temperature 98.5 F Pulse Rate 66 Respiratory Rate 18 Blood Pressure 156/63 H Pulse Oximetry 98 Oxygen Delivery Room Air Intake/Output Intake/Output: Intake & Output 09/08/24 09/09/24 09/10/24 09/12/24 23:59 23:59 23:59 00:59 Intake Total 1622 1300 1200 637 Output Total 1050 1052 300 700 Balance 572 248 900 -63 Meds/Results Medications: Active Medications Generic Name Dose Route Start Last Admin Trade Name Freq PRN Reason Stop Dose Admin Hydrocodone Bitart/Acetaminophen 1 tab 09/06/24 04:46 09/11/24 05:22 Hydrocodone/Acetaminophen (*Crx) 5-325 Mg Tablet PO 1 tab Q6H PRN Administration pain 7-10 Amlodipine Besylate 10 mg 09/06/24 09:00 09/11/24 08:42 Amlodipine Besylate 10 Mg Tablet PO 10 mg DAILY YONY Administration Apixaban 5 mg 09/06/24 09:00 09/11/24 08:41 Apixaban 5 Mg Tablet PO 10/06/24 08:59 5 mg Q12H YONY Administration Atorvastatin Calcium 10 mg 09/06/24 18:00 09/10/24 17:11 Atorvastatin 10 Mg Tablet PO 10 mg QPM YONY Administration Baclofen 10 mg 09/07/24 16:00 09/11/24 11:05 Baclofen 10 Mg Tablet PO 10 mg Q6H YONY Administration Citalopram Hydrobromide 10 mg 09/08/24 21:00 09/10/24 20:31 Citalopram Hydrobromide 10 Mg Tablet PO 10 mg HS YONY Administration Famotidine 20 mg 09/08/24 09:00 09/11/24 08:41 Famotidine 20 Mg Tablet PO 20 mg Q12HR YONY Administration Gabapentin 300 mg 09/06/24 06:00 09/11/24 05:19 Gabapentin 300 Mg Capsule PO 300 mg Q8HR YONY Administration Isosorbide Mononitrate 60 mg 09/06/24 09:00 09/11/24 08:41 Isosorbide Mononitrate 60 Mg Tab.Er.24h PO 60 mg DAILY YONY Administration Lidocaine 1 patch 09/06/24 09:00 09/11/24 08:42 Lidocaine 5% Patch TOPICAL 1 patch Q24H YONY Administration Lidocaine 2 patch 09/07/24 10:05 09/11/24 08:42 Lidocaine 5% Patch TRANSDERM 2 patch DAILY YONY Administration Loratadine 10 mg 09/08/24 21:00 09/10/24 20:31 Loratadine 10 Mg Tablet PO 10 mg HS YONY Administration Losartan Potassium 100 mg 09/06/24 09:00 09/11/24 08:41 Losartan Potassium 100 Mg Tablet PO 100 mg DAILY YONY Administration Ondansetron HCl 4 mg 09/06/24 03:01 09/06/24 14:25 Ondansetron Inj 4 Mg/2 Ml Vial IV PUSH 4 mg Q4H PRN Administration Nausea Polyethylene Glycol 17 gm 09/08/24 17:36 09/11/24 08:41 Polyethylene Glycol 3350 17 Gm Powd.Pack PO Not Given QAM YONY Vit/Calcium/Iron/Folic Ac 1 tab 09/06/24 09:00 09/11/24 08:41 Multivit/Min/Pren/Fol Ac/Iron Tablet PO 1 tab DAILY YONY Administration Senna/Docusate Sodium 2 tab 09/09/24 09:00 09/11/24 08:42 Senna/Docusate Sodium Tablet PO Not Given BID YONY Sertraline HCl 100 mg 09/08/24 21:00 09/10/24 20:31 Sertraline Hcl 50 Mg Tablet PO 100 mg HS YONY Administration Sodium Chloride 2 spray 09/06/24 07:56 Saline 0.65% Kendrick Soln 44 Ml Btl NASAL BID PRN nasal congestion Thiamine HCl 100 mg 09/06/24 09:00 09/11/24 08:41 Thiamine Hcl 100 Mg Tablet PO 100 mg QAM YONY Administration Radiology Results: ITS Impressions Chest X-Ray 09/06/24 06:07 Impression: Clear lungs. Labs Labs: Laboratory Results - last 24 hr 09/11/24 06:03 WBC 9.9 RBC 4.35 Hgb 8.6 L Hct 28.3 L MCV 65.1 L MCH 19.8 L MCHC 30.4 L RDW 25.6 H Plt Count 344 MPV 9.9 % Immature Plt Fraction 2.5 Sodium 133 L Potassium 4.4 Chloride 100 Carbon Dioxide 25 Anion Gap 8 BUN 11 Creatinine 0.65 L Estim Creat Clear Calc 50 Estimated GFR > 60 Glucose 101 Calcium 9.4 Magnesium 1.5 L
--- NOTE | 2024-09-11 13:31 | P.PNIM_ITS ---
Progress Note: A&P Assessment and Plan (1) Anemia: Code(s): D64.9 - Anemia, unspecified Status: Acute (2) Debility, unspecified: Code(s): R53.81 - Other malaise Status: Acute (3) KATIE (acute kidney injury): Code(s): N17.9 - Acute kidney failure, unspecified Status: Acute (4) Hyponatremia: Code(s): E87.1 - Hypo-osmolality and hyponatremia Status: Acute (5) HTN (hypertension), benign: Code(s): I10 - Essential (primary) hypertension Status: Acute (6) Atrial fibrillation: Code(s): I48.91 - Unspecified atrial fibrillation Status: Acute (7) Generalized weakness: Code(s): R53.1 - Weakness Status: Acute Plan patient is 69 y/o AA female with PMHX of HTN, HDL, atril fibrilation on Eliquis, chronic pain, presented with generalized weakness and pain, patient is also found to have iron deficiency anemia, her iron is low patient is being transfused, patient concern is pain and weakness, currently receiving hydrocodone, baclofen, and Lidoderm patches, will have PT/ OT evaluate the patient patient and further recommendations to follow. This morning patient stats she is better compared to when she arrive, patient randle spected iron deficiency anemia, will receive 3rd dose of iron, on 09/08 her hgb dropped to 6.5, denied any abdominal pain, n/v, rectal bleeding, transfused 1 unit PRBC, today her Hgb is 8.6, stool hemoccult is positive, today patient was seen by GI, patient had colonoscopy 1 yr ago which was normal, suspect patient anticoagulation may be causing her GI bleed however patient will have EGD on Thursday, will follow up and plan, patient pain is persisting, will continue baclofen, Lidoderm patches, and hydrocodone PRN, will have PT/OT work with patient, patient will benefit going to rehab. Subjective Date/time seen: 09/11/24 13:31 Interval history: patient is 69 y/o AA female with PMHX of HTN, HDL, atril fibrilation on Eliquis, chronic pain, presented with generalized weakness and pain, patient is also found to have iron deficiency anemia, her iron is low patient is being transfused, patient concern is pain and weakness, currently receiving hydrocodone, baclofen, and lidoderm patches, will have PT/ OT evaluate the patient patient and further recommendations to follow. This morning patient stats she is better compared to when she arrive, patient suspected iron deficiency anemia, will receive 3rd dose of iron, on 09/08 her hgb dropped to 6.5, denied any abdominal pain, n/v, rectal bleeding, transfused 1 unit PRBC, today her Hgb is 8.6, stool hemoccult is positive, today patient was seen by GI, patient had colonoscopy 1 yr ago which was normal, suspect patient anticoagulation may be causing her GI bleed however patient will have EGD on Thursday, will follow up and plan, patient pain is persisting, will continue baclofen, Lidoderm patches, and hydrocodone PRN, will have PT/OT work with patient, patient will benefit going to rehab. Review of Systems Review of Systems: A 10 system review of systems was completed on the patient and is negative except for what is stated in the HPI. Nursing and ancillary documentation was reviewed. Exam Narrative: Patient is comfortable, NAD, pain HEENT: eyes are clear and none icteric LUNGS:CTA HEART: RR S1S2 ABD: BS+, Soft and nontender Lower extremities: no edema SKIN: nonjaundiced Neuro: grossly intact. Objective Data Vital Signs Vital Signs: Vital Signs - 24 hr 09/10/24 14:00 09/10/24 20:00 09/10/24 22:00 Temperature 36.4 C 37.0 C Pulse Rate 74 70 Respiratory Rate 16 18 Blood Pressure 105/55 L 133/60 Pulse Oximetry 100 100 Oxygen Delivery Room Air 09/11/24 06:00 09/11/24 08:00 Temperature 36.9 C Pulse Rate 66 Respiratory Rate 18 Blood Pressure 156/63 H Pulse Oximetry 98 Oxygen Delivery Room Air Intake/Output Intake/Output: Intake & Output 09/08/24 09/09/24 09/10/24 09/12/24 23:59 23:59 23:59 00:59 Intake Total 1622 1300 1200 877 Output Total 1050 1052 300 700 Balance 572 248 900 177 Meds/Results Medications: Active Medications Generic Name Dose Route Start Last Admin Trade Name Freq PRN Reason Stop Dose Admin Hydrocodone Bitart/Acetaminophen 1 tab 09/06/24 04:46 09/11/24 05:22 Hydrocodone/Acetaminophen (*Crx) 5-325 Mg Tablet PO 1 tab Q6H PRN Administration pain 7-10 Amlodipine Besylate 10 mg 09/06/24 09:00 09/11/24 08:42 Amlodipine Besylate 10 Mg Tablet PO 10 mg DAILY YONY Administration Apixaban 5 mg 09/06/24 09:00 09/11/24 08:41 Apixaban 5 Mg Tablet PO 10/06/24 08:59 5 mg Q12H YONY Administration Atorvastatin Calcium 10 mg 09/06/24 18:00 09/10/24 17:11 Atorvastatin 10 Mg Tablet PO 10 mg QPM OYNY Administration Baclofen 10 mg 09/07/24 16:00 09/11/24 11:05 Baclofen 10 Mg Tablet PO 10 mg Q6H YONY Administration Bisacodyl 20 mg 09/11/24 17:00 Bisacodyl 5 Mg Tablet Ec PO 09/11/24 17:01 ONCE ONE Citalopram Hydrobromide 10 mg 09/08/24 21:00 09/10/24 20:31 Citalopram Hydrobromide 10 Mg Tablet PO 10 mg HS YONY Administration Famotidine 20 mg 09/08/24 09:00 09/11/24 08:41 Famotidine 20 Mg Tablet PO 20 mg Q12HR YONY Administration Gabapentin 300 mg 09/06/24 06:00 09/11/24 05:19 Gabapentin 300 Mg Capsule PO 300 mg Q8HR YONY Administration Isosorbide Mononitrate 60 mg 09/06/24 09:00 09/11/24 08:41 Isosorbide Mononitrate 60 Mg Tab.Er.24h PO 60 mg DAILY YONY Administration Lidocaine 1 patch 09/06/24 09:00 09/11/24 08:42 Lidocaine 5% Patch TOPICAL 1 patch Q24H YONY Administration Lidocaine 2 patch 09/07/24 10:05 09/11/24 08:42 Lidocaine 5% Patch TRANSDERM 2 patch DAILY YONY Administration Loratadine 10 mg 09/08/24 21:00 09/10/24 20:31 Loratadine 10 Mg Tablet PO 10 mg HS YONY Administration Losartan Potassium 100 mg 09/06/24 09:00 09/11/24 08:41 Losartan Potassium 100 Mg Tablet PO 100 mg DAILY YONY Administration Magnesium Citrate 300 ml 09/12/24 02:00 Magnesium Citrate 300 Ml Btl PO 09/12/24 02:01 ONCE ONE Ondansetron HCl 4 mg 09/06/24 03:01 09/06/24 14:25 Ondansetron Inj 4 Mg/2 Ml Vial IV PUSH 4 mg Q4H PRN Administration Nausea Polyethylene Glycol 17 gm 09/08/24 17:36 09/11/24 08:41 Polyethylene Glycol 3350 17 Gm Powd.Pack PO Not Given QAM YONY Polyethylene Glycol 238 gm 09/11/24 17:00 Polyethylene Glycol 3350 238 Gm Bottle PO 09/11/24 17:01 ONCE ONE Vit/Calcium/Iron/Folic Ac 1 tab 09/06/24 09:00 09/11/24 08:41 Multivit/Min/Pren/Fol Ac/Iron Tablet PO 1 tab DAILY YONY Administration Senna/Docusate Sodium 2 tab 09/09/24 09:00 09/11/24 08:42 Senna/Docusate Sodium Tablet PO Not Given BID YONY Sertraline HCl 100 mg 09/08/24 21:00 09/10/24 20:31 Sertraline Hcl 50 Mg Tablet PO 100 mg HS YONY Administration Sodium Chloride 2 spray 09/06/24 07:56 Saline 0.65% Kendrick Soln 44 Ml Btl NASAL BID PRN nasal congestion Thiamine HCl 100 mg 09/06/24 09:00 09/11/24 08:41 Thiamine Hcl 100 Mg Tablet PO 100 mg QAM YONY Administration Radiology Results: ITS Impressions Chest X-Ray 09/06/24 06:07 Impression: Clear lungs. Labs Labs: Laboratory Results - last 24 hr 09/11/24 06:03 WBC 9.9 RBC 4.35 Hgb 8.6 L Hct 28.3 L MCV 65.1 L MCH 19.8 L MCHC 30.4 L RDW 25.6 H Plt Count 344 MPV 9.9 % Immature Plt Fraction 2.5 Sodium 133 L Potassium 4.4 Chloride 100 Carbon Dioxide 25 Anion Gap 8 BUN 11 Creatinine 0.65 L Estim Creat Clear Calc 50 Estimated GFR > 60 Glucose 101 Calcium 9.4 Magnesium 1.5 L Quality VTE Prophylaxis VTE prophylaxis: pharmacologic ordered
[2024-09-11 14:00] VITALS: BP 107/63; PULSE 64; RESP 18; TEMP 37; O2SAT 99
[2024-09-11] MEDS: SENNA/DOCUSATE SODIUM TABLET 2 TAB PO (16:35)
[2024-09-11] MEDS: polyethylene glycoL 3350 238 GM BOTTLE PO (16:38)
[2024-09-11] MEDS: BISACODYL 5 MG TABLET EC 20 MG PO (16:38)
[2024-09-11] MEDS: ATORVASTATIN 10 MG TABLET PO (17:39)
[2024-09-11] MEDS: ONDANSETRON INJ 4 MG/2 ML VIAL IV PUSH (17:39)
[2024-09-11] MEDS: CITALOPRAM HYDROBROMIDE 10 MG TABLET PO (20:46)
[2024-09-11] MEDS: SERTRALINE HCL 50 MG TABLET 100 MG PO (20:46)
[2024-09-11] MEDS: LORATADINE 10 MG TABLET PO (20:46)
[2024-09-11 22:00] VITALS: BP 123/93; PULSE 70; RESP 18; TEMP 36.2; O2SAT 99
[2024-09-12] VITALS (9 sets, daily range): BP systolic 99–169; BP diastolic 34–88; PULSE 54–72; RESP 16–20; TEMP 36–36.2; O2SAT 97–100
[2024-09-12] MEDS: MAGNESIUM CITRATE 300 ML BTL PO (01:44)
[2024-09-12] MEDS: HYDROcodone/acetaminophen (*CRX) 5-325 MG TABLET 1 TAB PO ×2 (05:48→17:44)
[2024-09-12] MEDS: GABAPENTIN 300 MG CAPSULE PO ×2 (05:48→21:01)
[2024-09-12 06:36] LABS: Hematocrit 26.9 % (37.0-47.0); Hemoglobin 8.1 g/dL (12.0-15.0); Immature Platelet Fraction Pct 2.9 % (0.9-11.2); Mean Corpuscular HGB Conc 30.1 g/dl (32-36); Mean Corpuscular Volume 66.6 fl (80-100); Mean Platelet Volume 9.9 fl (7.4-10.4); Platelet Count Result 319 k/mm3 (150-375); Red Blood Count 4.04 M/mm3 (4.2-5.4); Red Cell Distribution Width 25.5 % (11.5-14.5); White Blood Count 9.9 K/mm3 (4.5-10.0)
[2024-09-12 06:45] LABS: Anion Gap 8 mmol/L (4-12); Blood Urea Nitrogen 14 mg/dL (7-17); Calcium 9.1 mg/dL (8.4-10.2); Carbon Dioxide 22 mmol/L (22-30); Chloride 100 mmol/L (98-107); Estimated CRCL calculation 47 ml/min; Estimated Glomerular Filt Rate > 60; Glucose 96 mg/dL (65-110); Magnesium 2.3 mg/dL (1.6-2.3); Potassium 4.3 mmol/L (3.4-5.0); Sodium 130 mmol/L (137-145)
--- NOTE | 2024-09-12 11:14 | PCNFU ---
Nutrition Follow-Up Complete: Severe protein calorie malnutrition related to inadequate energy intake as evidenced by pt report of a -28% wt loss x 1 year, reduced po intake for 1 year, and NFPE findings for severe muscle wasting specifically in lower region (thigh, knee, calf) as well as moderate subcutaneous fat loss (cheeks) Goal: PO intake 75% of meals and supplements Patient is progressing towards goal. We will continue current goal. Pt current nutrition is NPO. Nutrition recommendation: Heart Healthy Last recorded weight is 46.3 kg, stable Bowel Motility: +BM reported 09/11 Labs Reviewed:BUN 0.69, NA 130, Hct 26.9, Hgb 8.1 Meds Noted:Thiamine, MVI, Eliquis Skin: WNL Additional Notes: Patient currently NPO for EGD/colonoscopy today. Patient has been tolerating heart Stem[employer] diet > 50% of meals consumed. Diet supplements are being providing of Ensure Enlive (350 kcal/20 gm protein) and Nutritional Ice Cream (300 kcal/9 gm protein. Agree with diet orders. Monitor intake, wt, labs. Follow up in 5 days.
[2024-09-12] MEDS: LACTATED RINGERS 1,000 ML 150 ML IV CONT (14:43)
--- NOTE | 2024-09-12 14:49 | WPDANESEPPF ---
Anes - Initial Pre Proc Eval Procedure: Operation Date: 09/12/24 15:45 Proposed Procedures p Esophagogastroduodenoscopy & Colonoscopy - Cuauhtemoc Carlson MD Date/Time: 09/12/24 14:49 Surgeon: Monica Cuevas DO Pre Op Diagnosis: Generalized weakness hyponatremia, Anemia Patient Data Age: 69 Gender: F Height: 1.55 m Weight: 46.3 kg Last Vital Signs Temp 36.2 C L 09/12/24 13:55 Pulse 62 09/12/24 13:55 Resp 20 09/12/24 13:55 BP 152/60 H 09/12/24 13:55 Pulse Ox 97 09/12/24 13:55 O2 Del Method Room Air 09/12/24 08:00 Allergies Allergy/AdvReac Type Severity Reaction Status Date / Time No Known Allergies Allergy Verified 09/12/24 14:35 Home Medications ?Medication ?Instructions ?Recorded ?Confirmed ?Type amlodipine 10 mg tablet 10 mg PO DAILY 09/06/24 09/06/24 History apixaban 5 mg (74 tabs) tablets in 5 mg PO Q12H 09/06/24 09/06/24 History a dose pack (CMP.LY DVT-PE Treat 30D Start) atorvastatin 10 mg tablet 10 mg PO QPM 09/06/24 09/06/24 History baclofen 10 mg tablet 10 mg PO Q6H PRN muscle spasm 09/06/24 09/06/24 History cetirizine 10 mg tablet 10 mg PO DAILY 09/06/24 09/07/24 History citalopram 10 mg tablet 10 mg PO DAILY 09/06/24 09/06/24 History famotidine 20 mg tablet 20 mg PO BID 09/06/24 09/07/24 History gabapentin 300 mg capsule 300 mg PO Q8H 09/06/24 09/06/24 History hydralazine 100 mg tablet 100 mg PO Q12H 09/06/24 09/06/24 History hydrocodone 5 mg-acetaminophen 325 1 tablet PO Q6H PRN pain 09/06/24 09/06/24 History mg tablet isosorbide mononitrate 60 mg 60 mg PO DAILY 09/06/24 09/06/24 History tablet,extended release 24 hr lidocaine 5 % topical patch 1 patch topical Q24H 09/06/24 09/06/24 History losartan 100 mg tablet 100 mg PO DAILY 09/06/24 09/06/24 History sennosides 8.6 mg-docusate sodium 1 tab-cap PO BID 09/06/24 09/06/24 History 50 mg tablet (Stimulant Laxative Plus) sertraline 100 mg tablet 100 mg PO Q24H 09/06/24 09/06/24 History sodium chloride 0.65 % nasal spray 2 spray intranasal BID PRN nasal 09/06/24 09/06/24 History aerosol (Deep Sea Nasal) congestion Laboratory Tests 09/12/24 09/12/24 06:16 06:17 WBC 9.9 K/mm3 (4.5-10.0) RBC 4.04 L M/mm3 (4.2-5.4) Hgb 8.1 L g/dL (12.0-15.0) Hct 26.9 L % (37.0-47.0) MCV 66.6 L fl (80-100) MCH 20.0 L pg (26-34) MCHC 30.1 L g/dl (32-36) RDW 25.5 H % (11.5-14.5) Plt Count 319 k/mm3 (150-375) MPV 9.9 fl (7.4-10.4) % Immature Plt Fraction 2.9 % (0.9-11.2) Sodium 130 L mmol/L (137-145) Potassium 4.3 mmol/L (3.4-5.0) Chloride 100 mmol/L (98-107) Carbon Dioxide 22 mmol/L (22-30) Anion Gap 8 mmol/L (4-12) BUN 14 mg/dL (7-17) Creatinine 0.69 L mg/dL (0.7-1.0) Estim Creat Clear Calc 47 ml/min Estimated GFR > 60 (59 - ) Glucose 96 mg/dL (65-110) Calcium 9.1 mg/dL (8.4-10.2) Magnesium 2.3 mg/dL (1.6-2.3) Patient hx anesthesia problems: none Family hx anesthesia problems: none Results Review: All pre-operative results and documents have been reviewed as part of the pre-operative evaluation. [facility] Past Medical History Medical History Chronic anticoagulation Occult blood in stools Acute on chronic anemia Family History Family History Mother Cancer Grandparent Diabetes mellitus Social History Social History Smoking packs per day: 0.5 Smoking cigarettes per day: 10.0 Smoking status: Former smoker Smoking end date: 08/09/24 Alcohol intake: current Drinks per week: 25 Substance use: current Substance use type: marijuana Do You Feel Safe in your Home?: Yes Lack of Transportation: No Lack of Food: Often True Current Housing: I Do Not Have Housing Concerned About Future Housing: No Difficulty Paying Gas/Electric Bills: No Difficulty Paying for Meds: No Currently Unemployed: No Education: High School Diploma/GED Difficulty w/ Childcare or Family Care: No Spiritual care concerns: No Anes - Eval Final PreProcedure Day of Procedure 09/12/24 14:49 Patient weight: normal Heart: regular rate and rhythm Lungs: decreased breath sounds Airway: Mallampati scale class II Neurological: alert and oriented Last oral intake: >/= 8 hours ASA classification: III Emergent: no Anesthetic plan: proceed Anesthesia type and monitoring: general GIVS and standard monitoring Results Review: All pre-operative results and documents have been reviewed as part of the pre-operative evaluation. Informed Consent: The patient's anesthetic plan and its attendant risks and benefits were discussed with the patient/family/POA. Questions were solicited and answers provided to the satisfaction of the patient/family/POA.
--- NOTE | 2024-09-12 15:28 | SUR.OPER ---
EGD ended at 1523 and colon started at 1527.
--- NOTE | 2024-09-12 17:34 | P.PNIM_ITS ---
Progress Note: A&P Assessment and Plan (1) Anemia: Code(s): D64.9 - Anemia, unspecified Status: Acute (2) Debility, unspecified: Code(s): R53.81 - Other malaise Status: Acute (3) KATIE (acute kidney injury): Code(s): N17.9 - Acute kidney failure, unspecified Status: Acute (4) Hyponatremia: Code(s): E87.1 - Hypo-osmolality and hyponatremia Status: Acute (5) HTN (hypertension), benign: Code(s): I10 - Essential (primary) hypertension Status: Acute (6) Atrial fibrillation: Code(s): I48.91 - Unspecified atrial fibrillation Status: Acute (7) Generalized weakness: Code(s): R53.1 - Weakness Status: Acute Plan patient is 69 y/o AA female with PMHX of HTN, HDL, atril fibrilation on Eliquis, chronic pain, presented with generalized weakness and pain, patient is also found to have iron deficiency anemia, her iron is low patient is being transfused, patient concern is pain and weakness, currently receiving hydrocodone, baclofen, and Lidoderm patches, will have PT/ OT evaluate the patient patient and further recommendations to follow. This morning patient stats she is better compared to when she arrive, patient s uspected iron deficiency anemia, will receive 3rd dose of iron, on 09/08 her hgb dropped to 6.5, denied any abdominal pain, n/v, rectal bleeding, transfused 1 unit PRBC, today her Hgb is 8.6, stool hemoccult is positive, today patient was seen by GI, patient had colonoscopy 1 yr ago which was normal, suspect patient anticoagulation may be causing her GI bleed however today patient had EGD which was normal but colonoscopy showed patient has fungated mass in colon possibly malignant, may need resection and excision of the mass, will consult general surgery service, will follow up and plan, patient pain is persisting, will continue baclofen, Lidoderm patches, and hydrocodone PRN, will have PT/OT work with patient, patient will benefit going to rehab. Subjective Date/time seen: 09/12/24 17:34 Interval history: patient is 69 y/o AA female with PMHX of HTN, HDL, atril fibrilation on Eliquis, chronic pain, presented with generalized weakness and pain, patient is also found to have iron deficiency anemia, her iron is low patient is being transfused, patient concern is pain and weakness, currently receiving hydrocodone, baclofen, and lidoderm patches, will have PT/ OT evaluate the patient patient and further recommendations to follow. This morning patient stats she is better compared to when she arrive, patient suspected iron deficiency anemia, will receive 3rd dose of iron, on 09/08 her hgb dropped to 6.5, denied any abdominal pain, n/v, rectal bleeding, transfused 1 unit PRBC, today her Hgb is 8.6, stool hemoccult is positive, today patient was seen by GI, patient had colonoscopy 1 yr ago which was normal, suspect patient anticoagulation may be causing her GI bleed however today patient had EGD which was normal but colonoscopy showed patient has fungated mass in colon possibly malignant, may need resection and excision of the mass, will consult general surgery service, will follow up and plan, patient pain is persisting, will continue baclofen, Lidoderm patches, and hydrocodone PRN, will have PT/OT work with patient, patient will benefit going to rehab. Review of Systems Review of Systems: A 10 system review of systems was completed on the patient and is negative except for what is stated in the HPI. Nursing and ancillary documentation was reviewed. Exam Narrative: Patient is comfortable, NAD, pain HEENT: eyes are clear and none icteric LUNGS:CTA HEART: RR S1S2 ABD: BS+, Soft and nontender Lower extremities: no edema SKIN: nonjaundiced Neuro: grossly intact. Objective Data Vital Signs Vital Signs: Vital Signs - 24 hr 09/11/24 20:00 09/11/24 22:00 09/12/24 05:27 Temperature 36.2 C L 36.2 C L Pulse Rate 70 72 Respiratory Rate 18 18 Blood Pressure 123/93 H 122/88 Pulse Oximetry 99 98 Oxygen Delivery Room Air 09/12/24 06:25 09/12/24 08:00 09/12/24 13:55 Temperature 36.2 C L 36.2 C L Pulse Rate 66 72 62 Respiratory Rate 16 18 20 Blood Pressure 147/82 H 152/60 H Pulse Oximetry 100 98 97 Oxygen Delivery Room Air Room Air 09/12/24 15:43 09/12/24 15:53 09/12/24 16:03 Temperature Pulse Rate 54 L 60 58 L Respiratory Rate 16 18 18 Blood Pressure 99/34 L 131/49 L 153/77 H Pulse Oximetry 99 100 99 Oxygen Delivery Room Air Room Air Room Air Intake/Output Intake/Output: Intake & Output 09/09/24 09/10/24 09/12/24 09/12/24 23:59 23:59 00:59 23:59 Intake Total 1300 1200 1314 600 Output Total 2671 262 4055 Balance 248 900 114 600 Meds/Results Medications: Active Medications Generic Name Dose Route Start Last Admin Trade Name Freq PRN Reason Stop Dose Admin Hydrocodone Bitart/Acetaminophen 1 tab 09/06/24 04:46 09/12/24 05:48 Hydrocodone/Acetaminophen (*Crx) 5-325 Mg Tablet PO 1 tab Q6H PRN Administration pain 7-10 Amlodipine Besylate 10 mg 09/06/24 09:00 09/11/24 08:42 Amlodipine Besylate 10 Mg Tablet PO 10 mg DAILY YONY Administration Atorvastatin Calcium 10 mg 09/06/24 18:00 09/11/24 17:39 Atorvastatin 10 Mg Tablet PO 10 mg QPM YONY Administration Baclofen 10 mg 09/07/24 16:00 09/12/24 12:14 Baclofen 10 Mg Tablet PO Not Given Q6H YONY Citalopram Hydrobromide 10 mg 09/08/24 21:00 09/11/24 20:46 Citalopram Hydrobromide 10 Mg Tablet PO 10 mg HS YONY Administration Famotidine 20 mg 09/08/24 09:00 09/12/24 12:12 Famotidine 20 Mg Tablet PO Not Given Q12HR YONY Gabapentin 300 mg 09/06/24 06:00 09/12/24 05:48 Gabapentin 300 Mg Capsule PO 300 mg Q8HR YONY Administration Isosorbide Mononitrate 60 mg 09/06/24 09:00 09/11/24 08:41 Isosorbide Mononitrate 60 Mg Tab.Er.24h PO 60 mg DAILY YONY Administration Lidocaine 1 patch 09/06/24 09:00 09/12/24 12:12 Lidocaine 5% Patch TOPICAL Not Given Q24H YONY Lidocaine 2 patch 09/07/24 10:05 09/12/24 12:13 Lidocaine 5% Patch TRANSDERM Not Given DAILY YONY Loratadine 10 mg 09/08/24 21:00 09/11/24 20:46 Loratadine 10 Mg Tablet PO 10 mg HS YONY Administration Losartan Potassium 100 mg 09/06/24 09:00 09/12/24 12:13 Losartan Potassium 100 Mg Tablet PO Not Given DAILY [facility] Ondansetron HCl 4 mg 09/06/24 03:01 09/11/24 17:39 Ondansetron Inj 4 Mg/2 Ml Vial IV PUSH 4 mg Q4H PRN Administration Nausea Polyethylene Glycol 17 gm 09/08/24 17:36 09/12/24 12:13 Polyethylene Glycol 3350 17 Gm Powd.Pack PO Not Given QAM [facility] Vit/Calcium/Iron/Folic Ac 1 tab 09/06/24 09:00 09/12/24 12:13 Multivit/Min/Pren/Fol Ac/Iron Tablet PO Not Given DAILY [facility] Senna/Docusate Sodium 2 tab 09/09/24 09:00 09/12/24 12:12 Senna/Docusate Sodium Tablet PO Not Given BID [facility] Sertraline HCl 100 mg 09/08/24 21:00 09/11/24 20:46 Sertraline Hcl 50 Mg Tablet PO 100 mg HS [facility] Administration Sodium Chloride 2 spray 09/06/24 07:56 Saline 0.65% Kendrick Soln 44 Ml Btl NASAL BID PRN nasal congestion Thiamine HCl 100 mg 09/06/24 09:00 09/12/24 12:13 Thiamine Hcl 100 Mg Tablet PO Not Given QAM [facility] Radiology Results: ITS Impressions Chest X-Ray 09/06/24 06:07 Impression: Clear lungs. Labs Labs: Laboratory Results - last 24 hr 09/12/24 09/12/24 06:16 06:17 WBC 9.9 RBC 4.04 L Hgb 8.1 L Hct 26.9 L MCV 66.6 L MCH 20.0 L MCHC 30.1 L RDW 25.5 H Plt Count 319 MPV 9.9 % Immature Plt Fraction 2.9 Sodium 130 L Potassium 4.3 Chloride 100 Carbon Dioxide 22 Anion Gap 8 BUN 14 Creatinine 0.69 L Estim Creat Clear Calc 47 Estimated GFR > 60 Glucose 96 Calcium 9.1 Magnesium 2.3 Quality VTE Prophylaxis VTE prophylaxis: pharmacologic ordered
[2024-09-12] MEDS: ONDANSETRON INJ 4 MG/2 ML VIAL IV PUSH (17:44)
[2024-09-12] MEDS: ATORVASTATIN 10 MG TABLET PO (17:44)
[2024-09-12] MEDS: BACLOFEN 10 MG TABLET PO (21:01)
[2024-09-12] MEDS: SERTRALINE HCL 50 MG TABLET 100 MG PO (21:01)
[2024-09-12] MEDS: LORATADINE 10 MG TABLET PO (21:01)
[2024-09-12] MEDS: FAMOTIDINE 20 MG TABLET PO (21:02)
[2024-09-12] MEDS: CITALOPRAM HYDROBROMIDE 10 MG TABLET PO (21:02)
[2024-09-13] MEDS: HYDROcodone/acetaminophen (*CRX) 5-325 MG TABLET 1 TAB PO ×3 (00:45→20:44)
[2024-09-13] MEDS: LIDOCAINE 5% PATCH 2 PATCH TRANSDERM (01:33)
[2024-09-13] MEDS: BACLOFEN 10 MG TABLET PO ×4 (05:00→20:44)
[2024-09-13] MEDS: GABAPENTIN 300 MG CAPSULE PO ×3 (05:39→20:43)
[2024-09-13 06:00] VITALS: BP 163/85; PULSE 62; RESP 18; TEMP 36.2; O2SAT 100
[2024-09-13 06:38] LABS: Hematocrit 27.5 % (37.0-47.0); Hemoglobin 8.4 g/dL (12.0-15.0); Immature Platelet Fraction Pct 2.9 % (0.9-11.2); Mean Corpuscular HGB Conc 30.5 g/dl (32-36); Mean Corpuscular Hemoglobin 20.4 pg (26-34); Mean Corpuscular Volume 66.7 fl (80-100); Platelet Count Result 350 k/mm3 (150-375); Red Blood Count 4.12 M/mm3 (4.2-5.4); Red Cell Distribution Width 26.3 % (11.5-14.5); White Blood Count 10.4 K/mm3 (4.5-10.0)
[2024-09-13 06:44] LABS: Anion Gap 6 mmol/L (4-12); Blood Urea Nitrogen 13 mg/dL (7-17); Calcium 9.1 mg/dL (8.4-10.2); Carbon Dioxide 28 mmol/L (22-30); Chloride 99 mmol/L (98-107); Estimated CRCL calculation 51 ml/min; Estimated Glomerular Filt Rate > 60; Glucose 84 mg/dL (65-110); Magnesium 2.1 mg/dL (1.6-2.3); Potassium 4.5 mmol/L (3.4-5.0); Sodium 133 mmol/L (137-145)
[2024-09-13] MEDS: SENNA/DOCUSATE SODIUM TABLET 2 TAB PO ×2 (09:23→18:13)
[2024-09-13] MEDS: MULTIVIT/MIN/PREN/FOL AC/IRON TABLET 1 TAB PO (09:23)
[2024-09-13] MEDS: THIAMINE HCL 100 MG TABLET PO (09:23)
[2024-09-13] MEDS: ISOSORBIDE MONONITRATE 60 MG TAB.ER.24H PO (09:23)
[2024-09-13] MEDS: amLODIPine BESYLATE 10 MG TABLET PO (09:23)
[2024-09-13] MEDS: FAMOTIDINE 20 MG TABLET PO ×2 (09:24→20:44)
[2024-09-13] MEDS: polyethylene glycoL 3350 17 GM POWD.PACK PO (09:24)
[2024-09-13] MEDS: LOSARTAN POTASSIUM 100 MG TABLET PO (09:24)
--- NOTE | 2024-09-13 09:34 | PM.CNGS ---
Assessment and Plan Assessment and plan (1) Colonic mass: Code(s): K63.89 - Other specified diseases of intestine Status: Acute Assessment and Plan: Patient presented with weakness and admitted with anemia. She was found to have a malignant-appearing mass in the proximal ascending colon on colonoscopy. Biopsies pending. No obstructive symptoms did not appear to be obstructive on the colonoscopy. She has been advanced to a regular diet, which she is tolerating. Agree with CT scan of the abdomen and pelvis that was ordered today for staging. If there is no evidence of distant metastasis, then we can schedule her as an outpatient for a right colectomy in the next few weeks as an outpatient as she would have to undergo another bowel prep. If there is any evidence of distant metastasis, then she would need to be referred to Oncology. (2) Acute on chronic anemia: Code(s): D64.9 - Anemia, unspecified Status: Acute Assessment and Plan: Hemoglobin was as low as 6.5, requiring blood transfusion, but has remained stable since. Anemia is likely related to her colon cancer. No signs of significant active bleeding that would indicate more urgent surgical intervention. (3) Generalized weakness: Code(s): R53.1 - Weakness Status: Acute (4) Chronic anticoagulation: Code(s): Z79.01 - middle or intermediate school principal (current) use of anticoagulants Status: Chronic Assessment and Plan: Eliquis on hold due to anemia (5) Atrial fibrillation: Code(s): I48.91 - Unspecified atrial fibrillation Status: Chronic (6) HTN (hypertension), benign: Code(s): I10 - Essential (primary) hypertension Status: Chronic Plan I have discussed the patient's case and plan of care with Dr. Cox. History of Present Illness Consult details Consult date: 09/13/24 Reason for consult: other (Ascending colon cancer, GI bleed) Requesting physician: Cuauhtemoc Carlson MD Narrative: This is a 69-year-old woman with PMH of hypertension, hyperlipidemia, atrial fibrillation on Eliquis, and chronic pain, who we have been asked to see in surgical consultation for ascending colon cancer with GI bleed. She initially presented to the ED a week ago with complaints of lower extremity weakness that has progressed over the past few months. Workup in the ED revealed iron deficiency anemia, hemoglobin as low as 6.5 and received a blood transfusion. IFOB was positive and GI was consulted. EGD and colonoscopy done yesterday, which showed reflux esophagitis, mild gastritis, a few small colon polyps, internal hemorrhoids, and a protruding malignant-appearing ulcerated mass in the proximal ascending colon near the ileocecal valve with stigmata of bleeding from the mass. Multiple biopsies were taken. She is scheduled for CT scan of the abdomen and pelvis today for staging. She is now seen in surgical consultation for the concern for ascending colon cancer. Her Eliquis has been held since 09/11/2024. She denies any abdominal pain, nausea, vomiting, melena, or hematochezia. She reports around a 30-40 lb weight loss unintentionally in the past 6-12 months. No known family history of colorectal cancer. Review of Systems Review of Systems: All systems reviewed & are unremarkable except as noted in HPI and below PMFSH Past Medical History Medical History Anemia HTN (hypertension), benign Atrial fibrillation Chronic anticoagulation Occult blood in stools Acute on chronic anemia Surgical History Surgical History History of salpingostomy Ectopic History of partial hysterectomy Family History Family History Mother Cancer Grandparent Diabetes mellitus Social History Social History Smoking packs per day: 0.5 Smoking cigarettes per day: 10.0 Smoking status: Former smoker Smoking end date: 08/09/24 Alcohol intake: current Drinks per week: 25 Substance use: current Substance use type: marijuana Do You Feel Safe in your Home?: Yes Lack of Transportation: No Lack of Food: Often True Current Housing: I Do Not Have Housing Concerned About Future Housing: No Difficulty Paying Gas/Electric Bills: No Difficulty Paying for Meds: No Currently Unemployed: No Education: High School Diploma/GED Difficulty w/ Childcare or Family Care: No Spiritual care concerns: No Meds Home Medications and Allergies Home Medications ?Medication ?Instructions ?Recorded ?Confirmed ?Type amlodipine 10 mg tablet 10 mg PO DAILY 09/06/24 09/06/24 History apixaban 5 mg (74 tabs) tablets in 5 mg PO Q12H 09/06/24 09/06/24 History a dose pack (Eliquis DVT-PE Treat 30D Start) atorvastatin 10 mg tablet 10 mg PO QPM 09/06/24 09/06/24 History baclofen 10 mg tablet 10 mg PO Q6H PRN muscle spasm 09/06/24 09/06/24 History cetirizine 10 mg tablet 10 mg PO DAILY 09/06/24 09/07/24 History citalopram 10 mg tablet 10 mg PO DAILY 09/06/24 09/06/24 History famotidine 20 mg tablet 20 mg PO BID 09/06/24 09/07/24 History gabapentin 300 mg capsule 300 mg PO Q8H 09/06/24 09/06/24 History hydralazine 100 mg tablet 100 mg PO Q12H 09/06/24 09/06/24 History hydrocodone 5 mg-acetaminophen 325 1 tablet PO Q6H PRN pain 09/06/24 09/06/24 History mg tablet isosorbide mononitrate 60 mg 60 mg PO DAILY 09/06/24 09/06/24 History tablet,extended release 24 hr lidocaine 5 % topical patch 1 patch topical Q24H 09/06/24 09/06/24 History losartan 100 mg tablet 100 mg PO DAILY 09/06/24 09/06/24 History sennosides 8.6 mg-docusate sodium 1 tab-cap PO BID 09/06/24 09/06/24 History 50 mg tablet (Stimulant Laxative Plus) sertraline 100 mg tablet 100 mg PO Q24H 09/06/24 09/06/24 History sodium chloride 0.65 % nasal spray 2 spray intranasal BID PRN nasal 09/06/24 09/06/24 History aerosol (Deep Sea Nasal) congestion Allergies Allergy/AdvReac Type Severity Reaction Status Date / Time No Known Allergies Allergy Verified 09/12/24 14:35 Vital Signs Vital Signs - 24 hr 09/12/24 13:55 09/12/24 15:43 09/12/24 15:53 Temperature 97.2 F L Pulse Rate 62 54 L 60 Respiratory Rate 20 16 18 Blood Pressure 152/60 H 99/34 L 131/49 L Pulse Oximetry 97 99 100 Oxygen Delivery Room Air Room Air 09/12/24 16:03 09/12/24 20:00 09/12/24 22:00 Temperature 96.8 F L Pulse Rate 58 L 61 61 Respiratory Rate 18 18 18 Blood Pressure 153/77 H 169/84 H Pulse Oximetry 99 99 99 Oxygen Delivery Room Air Room Air 09/13/24 06:00 Temperature 97.2 F L Pulse Rate 62 Respiratory Rate 18 Blood Pressure 163/85 H Pulse Oximetry 100 Oxygen Delivery Exam Const: General: comfortable and no acute distress Nutritional Appearance: average body habitus Orientation/consciousness: patient oriented x3 HENMT: Head: normocephalic and atraumatic Ears: hearing grossly normal bilaterally Mouth: Yes moist mucous membranes Eyes: General: appearance normal, both eyes and all related structures Pupils: Equal, round and reactive pupils present Neck: Neck: normal visual inspection and full ROM Resp: Effort & Inspection: no respiratory distress Auscultation: clear to auscultation bilaterally Cardio: Rate: regular rate Rhythm: regular rhythm Peripheral pulses: Peripheral pulses 2+ throughout GI: Inspection: non-distended and scar (pfannenstiel scar) GI Palp: Yes Soft to palpation, No Tenderness to palpation present (GI), No Guarding due to palpation present (GI), Yes No hepatosplenomegaly present and No Rebound tenderness present Percussion: Yes normal to percussion Auscultation: normal bowel sounds Rectal Exam: deferred Skin: General skin exam: normal color Neuro: General: moves all extremities and no focal motor deficits Speech: normal speech Motor exam (neuro): 5/5 motor strength present throughout Extrem: General: normal to inspection and no edema Psych: Mental Status: mental status grossly normal Attitude: cooperative Insight: Good insight present (Psych) Judgement: Good judgement present (Psych) Results Labs 09/13/24 05:59 09/13/24 05:59 Labs: Abnormal lab results 09/13/24 Range/Units 05:59 WBC 10.4 H (4.5-10.0) K/mm3 RBC 4.12 L (4.2-5.4) M/mm3 Hgb 8.4 L (12.0-15.0) g/dL Hct 27.5 L (37.0-47.0) % MCV 66.7 L (80-100) fl MCH 20.4 L (26-34) pg MCHC 30.5 L (32-36) g/dl RDW 26.3 H (11.5-14.5) % Sodium 133 L (137-145) mmol/L Creatinine 0.63 L (0.7-1.0) mg/dL Diabetes panel 09/13/24 Range/Units 05:59 Sodium 133 L (137-145) mmol/L Potassium 4.5 (3.4-5.0) mmol/L Chloride 99 (98-107) mmol/L Carbon Dioxide 28 (22-30) mmol/L BUN 13 (7-17) mg/dL Creatinine 0.63 L (0.7-1.0) mg/dL Glucose 84 (65-110) mg/dL Calcium 9.1 (8.4-10.2) mg/dL Calcium panel 09/13/24 Range/Units 05:59 Calcium 9.1 (8.4-10.2) mg/dL Pituitary panel 09/13/24 Range/Units 05:59 Sodium 133 L (137-145) mmol/L Potassium 4.5 (3.4-5.0) mmol/L Chloride 99 (98-107) mmol/L Carbon Dioxide 28 (22-30) mmol/L BUN 13 (7-17) mg/dL Creatinine 0.63 L (0.7-1.0) mg/dL Glucose 84 (65-110) mg/dL Calcium 9.1 (8.4-10.2) mg/dL Adrenal panel 09/13/24 Range/Units 05:59 Sodium 133 L (137-145) mmol/L Potassium 4.5 (3.4-5.0) mmol/L Chloride 99 (98-107) mmol/L Carbon Dioxide 28 (22-30) mmol/L BUN 13 (7-17) mg/dL Creatinine 0.63 L (0.7-1.0) mg/dL Glucose 84 (65-110) mg/dL Calcium 9.1 (8.4-10.2) mg/dL All other labs normal. Imaging Additional studies: ITS Impressions Chest X-Ray 09/06/24 06:07 Impression: Clear lungs.
[2024-09-13 14:00] VITALS: BP 102/56; PULSE 70; RESP 16; TEMP 36.3; O2SAT 100
[2024-09-13 14:50] LABS: Hematocrit 24.8 % (37.0-47.0); Hemoglobin 7.6 g/dL (12.0-15.0)
--- NOTE | 2024-09-13 14:56 | P.PNIM_ITS ---
Progress Note: A&P Assessment and Plan (1) Anemia: Code(s): D64.9 - Anemia, unspecified Status: Chronic (2) Debility, unspecified: Code(s): R53.81 - Other malaise Status: Acute (3) KATIE (acute kidney injury): Code(s): N17.9 - Acute kidney failure, unspecified Status: Acute (4) Hyponatremia: Code(s): E87.1 - Hypo-osmolality and hyponatremia Status: Acute (5) HTN (hypertension), benign: Code(s): I10 - Essential (primary) hypertension Status: Chronic (6) Atrial fibrillation: Code(s): I48.91 - Unspecified atrial fibrillation Status: Chronic (7) Generalized weakness: Code(s): R53.1 - Weakness Status: Acute Plan patient is 69 y/o AA female with PMHX of HTN, HDL, atril fibrilation on Eliquis, chronic pain, presented with generalized weakness and pain, patient is also found to have iron deficiency anemia, her iron is low patient is being transfused, patient concern is pain and weakness, currently receiving hydroc odone, baclofen, and Lidoderm patches, will have PT/ OT evaluate the patient patient and further recommendations to follow. This morning patient stats she is better compared to when she arrive, patient suspected iron deficiency anemia, will receive 3rd dose of iron, on 09/08 her hgb dropped to 6.5, denied any abdominal pain, n/v, rectal bleeding, transfused 1 unit PRBC, today her Hgb is 8.6, stool hemoccult is positive, today patient was seen by GI, patient had colonoscopy 1 yr ago which was normal, suspect patient anticoagulation may be causing her GI bleed however on 09/12 patient had EGD which was normal but colonoscopy showed patient has fungated mass in colon possibly malignant, may need resection and excision of the mass, seen by general surgery service recommending outpatient procedure at a later date, today patient feel tired and her hgb is trending down 7.6, will monitor one more day and may discharge patient tomorrow. will follow up and plan, patient pain is persisting, will continue baclofen, Lidoderm patches, and hydrocodone PRN, will have PT/OT work with patient, patient will benefit going to rehab. Subjective Date/time seen: 09/13/24 14:56 Interval history: patient is 69 y/o AA female with PMHX of HTN, HDL, atril fibrilation on Eliquis, chronic pain, presented with generalized weakness and pain, patient is also found to have iron deficiency anemia, her iron is low patient is being transfused, patient concern is pain and weakness, currently receiving hydrocodone, baclofen, and lidoderm patches, will have PT/ OT evaluate the patient patient and further recommendations to follow. This morning patient stats she is better compared to when she arrive, patient suspected iron deficiency anemia, will receive 3rd dose of iron, on 09/08 her hgb dropped to 6.5, denied any abdominal pain, n/v, rectal bleeding, transfused 1 unit PRBC, today her Hgb is 8.6, stool hemoccult is positive, today patient was seen by GI, patient had colonoscopy 1 yr ago which was normal, suspect patient anticoagulation may be causing her GI bleed however on 09/12 patient had EGD which was normal but colonoscopy showed patient has fungated mass in colon possibly malignant, may need resection and excision of the mass, seen by general surgery service recommending outpatient procedure at a later date, today patient feel tired and her hgb is trending down 7.6, will monitor one more day and may discharge patient tomorrow. will follow up and plan, patient pain is persisting, will continue baclofen, Lidoderm patches, and hydrocodone PRN, will have PT/OT work with patient, patient will benefit going to rehab. Review of Systems Review of Systems: A 10 system review of systems was completed on the patient and is negative except for what is stated in the HPI. Nursing and ancillary documentation was reviewed. Exam Narrative: Patient is comfortable, NAD, pain HEENT: eyes are clear and none icteric LUNGS:CTA HEART: RR S1S2 ABD: BS+, Soft and nontender Lower extremities: no edema SKIN: nonjaundiced Neuro: grossly intact. Objective Data Vital Signs Vital Signs: Vital Signs - 24 hr 09/12/24 15:43 09/12/24 15:53 09/12/24 16:03 Temperature Pulse Rate 54 L 60 58 L Respiratory Rate 16 18 18 Blood Pressure 99/34 L 131/49 L 153/77 H Pulse Oximetry 99 100 99 Oxygen Delivery Room Air Room Air Room Air 09/12/24 20:00 09/12/24 22:00 09/13/24 06:00 Temperature 36.0 C L 36.2 C L Pulse Rate 61 61 62 Respiratory Rate 18 18 18 Blood Pressure 169/84 H 163/85 H Pulse Oximetry 99 99 100 Oxygen Delivery Room Air 09/13/24 09:00 09/13/24 14:00 Temperature 36.3 C L Pulse Rate 70 Respiratory Rate 16 Blood Pressure 102/56 L Pulse Oximetry 100 Oxygen Delivery Room Air Intake/Output Intake/Output: Intake & Output 09/10/24 09/12/24 09/12/24 09/13/24 23:59 00:59 23:59 23:59 Intake Total 1200 1314 800 240 Output Total 300 1200 Balance 900 114 800 240 Meds/Results Medications: Active Medications Generic Name Dose Route Start Last Admin Trade Name Freq PRN Reason Stop Dose Admin Hydrocodone Bitart/Acetaminophen 1 tab 09/06/24 04:46 09/13/24 06:54 Hydrocodone/Acetaminophen (*Crx) 5-325 Mg Tablet PO 1 tab Q6H PRN Administration pain 7-10 Amlodipine Besylate 10 mg 09/06/24 09:00 09/13/24 09:23 Amlodipine Besylate 10 Mg Tablet PO 10 mg DAILY YONY Administration Atorvastatin Calcium 10 mg 09/06/24 18:00 09/12/24 17:44 Atorvastatin 10 Mg Tablet PO 10 mg QPM YONY Administration Baclofen 10 mg 09/07/24 16:00 09/13/24 09:28 Baclofen 10 Mg Tablet PO 10 mg Q6H YONY Administration Citalopram Hydrobromide 10 mg 09/08/24 21:00 09/12/24 21:02 Citalopram Hydrobromide 10 Mg Tablet PO 10 mg HS YONY Administration Famotidine 20 mg 09/08/24 09:00 09/13/24 09:24 Famotidine 20 Mg Tablet PO 20 mg Q12HR YONY Administration Gabapentin 300 mg 09/06/24 06:00 09/13/24 05:39 Gabapentin 300 Mg Capsule PO 300 mg Q8HR YONY Administration Isosorbide Mononitrate 60 mg 09/06/24 09:00 09/13/24 09:23 Isosorbide Mononitrate 60 Mg Tab.Er.24h PO 60 mg DAILY YONY Administration Lidocaine 1 patch 09/06/24 09:00 09/13/24 09:28 Lidocaine 5% Patch TOPICAL Not Given Q24H YONY Lidocaine 2 patch 09/07/24 10:05 09/13/24 01:33 Lidocaine 5% Patch TRANSDERM 2 patch DAILY YONY Administration Loratadine 10 mg 09/08/24 21:00 09/12/24 21:01 Loratadine 10 Mg Tablet PO 10 mg HS YONY Administration Losartan Potassium 100 mg 09/06/24 09:00 09/13/24 09:24 Losartan Potassium 100 Mg Tablet PO 100 mg DAILY YONY Administration Ondansetron HCl 4 mg 09/06/24 03:01 09/12/24 17:44 Ondansetron Inj 4 Mg/2 Ml Vial IV PUSH 4 mg Q4H PRN Administration Nausea Polyethylene Glycol 17 gm 09/08/24 17:36 09/13/24 09:24 Polyethylene Glycol 3350 17 Gm Powd.Pack PO 17 gm QAM YONY Administration Vit/Calcium/Iron/Folic Ac 1 tab 09/06/24 09:00 09/13/24 09:23 Multivit/Min/Pren/Fol Ac/Iron Tablet PO 1 tab DAILY YONY Administration Senna/Docusate Sodium 2 tab 09/09/24 09:00 09/13/24 09:23 Senna/Docusate Sodium Tablet PO 2 tab BID YONY Administration Sertraline HCl 100 mg 09/08/24 21:00 09/12/24 21:01 Sertraline Hcl 50 Mg Tablet PO 100 mg HS YONY Administration Sodium Chloride 2 spray 09/06/24 07:56 Saline 0.65% Kendrick Soln 44 Ml Btl NASAL BID PRN nasal congestion Thiamine HCl 100 mg 09/06/24 09:00 09/13/24 09:23 Thiamine Hcl 100 Mg Tablet PO 100 mg QAM YONY Administration Radiology Results: ITS Impressions Chest X-Ray 09/06/24 06:07 Impression: Clear lungs. Abdomen/Pelvis CT 09/13/24 10:34 IMPRESSION: 1. Focal wall thickening of the ascending colon, consistent with primary malignancy. 2. Greater than 20 liver masses, consistent with metastatic disease. Consider ultrasound-guided core needle biopsy. Labs Labs: Laboratory Results - last 24 hr 09/13/24 09/13/24 05:59 14:35 WBC 10.4 H RBC 4.12 L Hgb 8.4 L 7.6 L Hct 27.5 L 24.8 L MCV 66.7 L MCH 20.4 L MCHC 30.5 L RDW 26.3 H Plt Count 350 MPV 10.0 % Immature Plt Fraction 2.9 Sodium 133 L Potassium 4.5 Chloride 99 Carbon Dioxide 28 Anion Gap 6 BUN 13 Creatinine 0.63 L Estim Creat Clear Calc 51 Estimated GFR > 60 Glucose 84 Calcium 9.1 Magnesium 2.1 Quality VTE Prophylaxis VTE prophylaxis: pharmacologic ordered
--- NOTE | 2024-09-13 15:38 | WPDGIPROGNO ---
Progress Note: A&P Assessment and Plan (1) Colon cancer: Code(s): C18.9 - Malignant neoplasm of colon, unspecified Status: Acute Assessment and Plan: unfortunately new diagnosis, CT scan also noted liver mets will ask oncology to evaluate patient this is cause of ongoing anemia, also noted friable tissue yesterday from malignancy transfuse as needed to keep Hb>7 surgery evaluated patient will follow as needed (2) Metastasis to liver: Code(s): C78.7 - Secondary malignant neoplasm of liver and intrahepatic bile duct Status: Acute Assessment and Plan: oncology will see patient and discuss probably palliative treatment (3) Acute on chronic anemia: Code(s): D64.9 - Anemia, unspecified Status: Acute (4) Occult blood in stools: Code(s): R19.5 - Other fecal abnormalities Status: Acute (5) Chronic anticoagulation: Code(s): Z79.01 - residential (current) use of anticoagulants Status: Chronic Subjective Date/time seen: 09/13/24 15:38 Interval history: colonoscopy yesterday noted large mass in ascending colon, feeling tired today Review of Systems Review of Systems: All systems reviewed & are unremarkable except as noted in HPI and below Exam Const: General: comfortable and no acute distress HENMT: Face/Nose/Sinus: Normal nares present Eyes: General: appearance normal, both eyes and all related structures Neck: Neck: supple Resp: Auscultation: clear to auscultation bilaterally Cardio: Rate: regular rate Rhythm: regular rhythm GI: Inspection: non-distended GI Palp: Yes Soft to palpation and No Tenderness to palpation present (GI) Auscultation: normal bowel sounds Skin: General skin exam: normal color Neuro: Speech: normal speech Other: b/l leg weakness Extrem: General: no edema Psych: Mental Status: mental status grossly normal Objective Data Vital Signs Vital Signs: Vital Signs - 24 hr 09/12/24 15:43 09/12/24 15:53 09/12/24 16:03 Temperature Pulse Rate 54 L 60 58 L Respiratory Rate 16 18 18 Blood Pressure 99/34 L 131/49 L 153/77 H Pulse Oximetry 99 100 99 Oxygen Delivery Room Air Room Air Room Air 09/12/24 20:00 09/12/24 22:00 09/13/24 06:00 Temperature 96.8 F L 97.2 F L Pulse Rate 61 61 62 Respiratory Rate 18 18 18 Blood Pressure 169/84 H 163/85 H Pulse Oximetry 99 99 100 Oxygen Delivery Room Air 09/13/24 09:00 09/13/24 14:00 Temperature 97.4 F L Pulse Rate 70 Respiratory Rate 16 Blood Pressure 102/56 L Pulse Oximetry 100 Oxygen Delivery Room Air Intake/Output Intake/Output: Intake & Output 09/10/24 09/12/24 09/12/24 09/13/24 23:59 00:59 23:59 23:59 Intake Total 1200 1314 800 240 Output Total 300 1200 Balance 900 114 800 240 Meds/Results Medications: Active Medications Generic Name Dose Route Start Last Admin Trade Name Freq PRN Reason Stop Dose Admin Hydrocodone Bitart/Acetaminophen 1 tab 09/06/24 04:46 09/13/24 06:54 Hydrocodone/Acetaminophen (*Crx) 5-325 Mg Tablet PO 1 tab Q6H PRN Administration pain 7-10 Amlodipine Besylate 10 mg 09/06/24 09:00 09/13/24 09:23 Amlodipine Besylate 10 Mg Tablet PO 10 mg DAILY YONY Administration Atorvastatin Calcium 10 mg 09/06/24 18:00 09/12/24 17:44 Atorvastatin 10 Mg Tablet PO 10 mg QPM YONY Administration Baclofen 10 mg 09/07/24 16:00 09/13/24 09:28 Baclofen 10 Mg Tablet PO 10 mg Q6H YONY Administration Citalopram Hydrobromide 10 mg 09/08/24 21:00 09/12/24 21:02 Citalopram Hydrobromide 10 Mg Tablet PO 10 mg HS YONY Administration Famotidine 20 mg 09/08/24 09:00 09/13/24 09:24 Famotidine 20 Mg Tablet PO 20 mg Q12HR YONY Administration Gabapentin 300 mg 09/06/24 06:00 09/13/24 05:39 Gabapentin 300 Mg Capsule PO 300 mg Q8HR YONY Administration Isosorbide Mononitrate 60 mg 09/06/24 09:00 09/13/24 09:23 Isosorbide Mononitrate 60 Mg Tab.Er.24h PO 60 mg DAILY YONY Administration Lidocaine 1 patch 09/06/24 09:00 09/13/24 09:28 Lidocaine 5% Patch TOPICAL Not Given Q24H YONY Lidocaine 2 patch 09/07/24 10:05 09/13/24 01:33 Lidocaine 5% Patch TRANSDERM 2 patch DAILY YONY Administration Loratadine 10 mg 09/08/24 21:00 09/12/24 21:01 Loratadine 10 Mg Tablet PO 10 mg HS YONY Administration Losartan Potassium 100 mg 09/06/24 09:00 09/13/24 09:24 Losartan Potassium 100 Mg Tablet PO 100 mg DAILY YONY Administration Ondansetron HCl 4 mg 09/06/24 03:01 09/12/24 17:44 Ondansetron Inj 4 Mg/2 Ml Vial IV PUSH 4 mg Q4H PRN Administration Nausea Polyethylene Glycol 17 gm 09/08/24 17:36 09/13/24 09:24 Polyethylene Glycol 3350 17 Gm Powd.Pack PO 17 gm QAM YONY Administration Vit/Calcium/Iron/Folic Ac 1 tab 09/06/24 09:00 09/13/24 09:23 Multivit/Min/Pren/Fol Ac/Iron Tablet PO 1 tab DAILY YONY Administration Senna/Docusate Sodium 2 tab 09/09/24 09:00 09/13/24 09:23 Senna/Docusate Sodium Tablet PO 2 tab BID YONY Administration Sertraline HCl 100 mg 09/08/24 21:00 09/12/24 21:01 Sertraline Hcl 50 Mg Tablet PO 100 mg HS YONY Administration Sodium Chloride 2 spray 09/06/24 07:56 Saline 0.65% Kendrick Soln 44 Ml Btl NASAL BID PRN nasal congestion Thiamine HCl 100 mg 09/06/24 09:00 09/13/24 09:23 Thiamine Hcl 100 Mg Tablet PO 100 mg QAM YONY Administration Radiology Results: ITS Impressions Chest X-Ray 09/06/24 06:07 Impression: Clear lungs. Abdomen/Pelvis CT 09/13/24 10:34 IMPRESSION: 1. Focal wall thickening of the ascending colon, consistent with primary malignancy. 2. Greater than 20 liver masses, consistent with metastatic disease. Consider ultrasound-guided core needle biopsy. Labs Labs: Laboratory Results - last 24 hr 09/13/24 09/13/24 05:59 14:35 WBC 10.4 H RBC 4.12 L Hgb 8.4 L 7.6 L Hct 27.5 L 24.8 L MCV 66.7 L MCH 20.4 L MCHC 30.5 L RDW 26.3 H Plt Count 350 MPV 10.0 % Immature Plt Fraction 2.9 Sodium 133 L Potassium 4.5 Chloride 99 Carbon Dioxide 28 Anion Gap 6 BUN 13 Creatinine 0.63 L Estim Creat Clear Calc 51 Estimated GFR > 60 Glucose 84 Calcium 9.1 Magnesium 2.1
[2024-09-13] MEDS: ATORVASTATIN 10 MG TABLET PO (18:13)
[2024-09-13 20:00] VITALS: PULSE 88; RESP 16; O2SAT 100
[2024-09-13] MEDS: SERTRALINE HCL 50 MG TABLET 100 MG PO (20:43)
[2024-09-13] MEDS: CITALOPRAM HYDROBROMIDE 10 MG TABLET PO (20:44)
[2024-09-13] MEDS: LORATADINE 10 MG TABLET PO (20:44)
[2024-09-13 20:56] VITALS: BP 120/69; PULSE 88; RESP 16; TEMP 36.6; O2SAT 100
[2024-09-14] MEDS: HYDROcodone/acetaminophen (*CRX) 5-325 MG TABLET 1 TAB PO ×4 (02:45→20:44)
[2024-09-14] MEDS: BACLOFEN 10 MG TABLET PO ×4 (04:34→20:44)
[2024-09-14] MEDS: GABAPENTIN 300 MG CAPSULE PO ×3 (04:34→20:44)
[2024-09-14] MEDS: SALINE 0.65% NAS SOLN 44 ML BTL 2 SPRAY NASAL (04:35)
[2024-09-14 05:24] VITALS: BP 121/44; PULSE 69; RESP 16; TEMP 36.4; O2SAT 100
[2024-09-14 07:01] LABS: Hematocrit 25.4 % (37.0-47.0); Hemoglobin 7.7 g/dL (12.0-15.0); Immature Platelet Fraction Pct 2.6 % (0.9-11.2); Mean Corpuscular HGB Conc 30.3 g/dl (32-36); Mean Corpuscular Hemoglobin 20.5 pg (26-34); Mean Corpuscular Volume 67.7 fl (80-100); Platelet Count Result 319 k/mm3 (150-375); Red Blood Count 3.75 M/mm3 (4.2-5.4); Red Cell Distribution Width 26.7 % (11.5-14.5)
[2024-09-14 07:08] LABS: Anion Gap 6 mmol/L (4-12); Blood Urea Nitrogen 18 mg/dL (7-17); Calcium 8.6 mg/dL (8.4-10.2); Carbon Dioxide 25 mmol/L (22-30); Chloride 102 mmol/L (98-107); Estimated CRCL calculation 38 ml/min; Estimated Glomerular Filt Rate > 60; Glucose 130 mg/dL (65-110); Magnesium 2.2 mg/dL (1.6-2.3); Sodium 133 mmol/L (137-145)
[2024-09-14] MEDS: SENNA/DOCUSATE SODIUM TABLET 2 TAB PO ×2 (08:15→16:29)
[2024-09-14] MEDS: MULTIVIT/MIN/PREN/FOL AC/IRON TABLET 1 TAB PO (08:15)
[2024-09-14] MEDS: LOSARTAN POTASSIUM 100 MG TABLET PO (08:15)
[2024-09-14] MEDS: FAMOTIDINE 20 MG TABLET PO ×2 (08:15→20:44)
[2024-09-14] MEDS: ISOSORBIDE MONONITRATE 60 MG TAB.ER.24H PO (08:15)
[2024-09-14 08:16] VITALS: RESP 16; O2SAT 100
[2024-09-14] MEDS: THIAMINE HCL 100 MG TABLET PO (08:16)
[2024-09-14] MEDS: LIDOCAINE 5% PATCH 1 PATCH TOPICAL (08:16)
[2024-09-14] MEDS: polyethylene glycoL 3350 17 GM POWD.PACK PO (08:16)
[2024-09-14] MEDS: amLODIPine BESYLATE 10 MG TABLET PO (08:16)
[2024-09-14] MEDS: LIDOCAINE 5% PATCH 2 PATCH TRANSDERM (08:16)
--- NOTE | 2024-09-14 12:15 | PCOTNOTE ---
Attempted to see Patient at this time. Patient unavailable, having a liver ultrasound performed. Will try back at a later time.
--- NOTE | 2024-09-14 12:45 | WPDONCCN ---
Assessment and Plan Assessment and plan (1) Colon cancer: Code(s): C18.9 - Malignant neoplasm of colon, unspecified Status: Acute Plan Likely metastatic colon cancer. Patient is a 69-year-old female with history of hypertension, hyperlipidemia and atrial fibrillation came into the hospital with generalized weakness and more than 30 lb weight loss. She denies any melena hematochezia but was found to have significant anemia with hemoglobin of 6.5. CT scan abdomen and pelvis done on September 06 showed focal wall thickening of ascending colon with greater than 20 liver masses. Colonoscopy was done that showed malignant appearing colon mass in the ascending colon. Biopsies were taken. Pathology is pending. I will check CEA level today. I discussed the treatment for metastatic colon cancer which involve systemic chemotherapy. She will be interested in getting chemotherapy. We will order MediPort placement and follow-up in the office. Surgery service is already involved and would like them to schedule her for port placement. I will also give her IV iron infusion prior to the discharge. I have provided her my office information for follow-up. HPI Data of Consult Date/Time: 09/14/24 12:45 Requesting Physician: Monica Cuevas DO Primary Care Provider: Arden FlowerMD Consult Narrative Narrative: Alissa Cabral is a 69 year old female with history of hypertension, hyperlipidemia, atrial fibrillation on Eliquis along with chronic pain came into the hospital with complain of lower extremity weakness along with tiredness and fatigue. She has lost almost 30 lb weight in will less than 6 months duration. Labs showed iron deficiency anemia. Hemoglobin was 6.5. CT abdomen and pelvis done on September 13 showed focal wall thickening of ascending colon with greater than 20 liver masses. Liver biopsy has been ordered. She has no previous history of malignancy. She continues to smoke. Review of Systems Review of Systems: Review of system as per HPI otherwise negative [facility] Past Medical History Medical History (Updated 09/13/24 @ 15:39 by Cuauhtemoc Carlson MD) Metastasis to liver Colon cancer Anemia HTN (hypertension), benign Atrial fibrillation Chronic anticoagulation Occult blood in stools Acute on chronic anemia Surgical History Surgical History History of salpingostomy Ectopic History of partial hysterectomy Family History Family History Mother Cancer Grandparent Diabetes mellitus Social History Social History Smoking packs per day: 0.5 Smoking cigarettes per day: 10.0 Smoking status: Former smoker Smoking end date: 08/09/24 Alcohol intake: current Drinks per week: 25 Substance use: current Substance use type: marijuana Do You Feel Safe in your Home?: Yes Lack of Transportation: No Lack of Food: Often True Current Housing: I Do Not Have Housing Concerned About Future Housing: No Difficulty Paying Gas/Electric Bills: No Difficulty Paying for Meds: No Currently Unemployed: No Education: High School Diploma/GED Difficulty w/ Childcare or Family Care: No Spiritual care concerns: No Meds Home Medications and Allergies Home Medications ?Medication ?Instructions ?Recorded ?Confirmed ?Type amlodipine 10 mg tablet 10 mg PO DAILY 09/06/24 09/06/24 History apixaban 5 mg (74 tabs) tablets in 5 mg PO Q12H 09/06/24 09/06/24 History a dose pack (FREECULTR DVT-PE Treat 30D Start) atorvastatin 10 mg tablet 10 mg PO QPM 09/06/24 09/06/24 History baclofen 10 mg tablet 10 mg PO Q6H PRN muscle spasm 09/06/24 09/06/24 History cetirizine 10 mg tablet 10 mg PO DAILY 09/06/24 09/07/24 History citalopram 10 mg tablet 10 mg PO DAILY 09/06/24 09/06/24 History famotidine 20 mg tablet 20 mg PO BID 09/06/24 09/07/24 History gabapentin 300 mg capsule 300 mg PO Q8H 09/06/24 09/06/24 History hydralazine 100 mg tablet 100 mg PO Q12H 09/06/24 09/06/24 History hydrocodone 5 mg-acetaminophen 325 1 tablet PO Q6H PRN pain 09/06/24 09/06/24 History mg tablet isosorbide mononitrate 60 mg 60 mg PO DAILY 09/06/24 09/06/24 History tablet,extended release 24 hr lidocaine 5 % topical patch 1 patch topical Q24H 09/06/24 09/06/24 History losartan 100 mg tablet 100 mg PO DAILY 09/06/24 09/06/24 History sennosides 8.6 mg-docusate sodium 1 tab-cap PO BID 09/06/24 09/06/24 History 50 mg tablet (Stimulant Laxative Plus) sertraline 100 mg tablet 100 mg PO Q24H 09/06/24 09/06/24 History sodium chloride 0.65 % nasal spray 2 spray intranasal BID PRN nasal 09/06/24 09/06/24 History aerosol (Deep Sea Nasal) congestion Allergies Allergy/AdvReac Type Severity Reaction Status Date / Time No Known Allergies Allergy Verified 09/12/24 14:35 Vital Signs Vital Signs - 24 hr 09/13/24 14:00 09/13/24 20:00 09/13/24 20:56 Temperature 36.3 C L 36.6 C Pulse Rate 70 88 88 Respiratory Rate 16 16 16 Blood Pressure 102/56 L 120/69 Pulse Oximetry 100 100 100 Oxygen Delivery Room Air 09/14/24 05:24 09/14/24 08:16 Temperature 36.4 C Pulse Rate 69 Respiratory Rate 16 16 Blood Pressure 121/44 L Pulse Oximetry 100 100 Oxygen Delivery Room Air Exam Narrative: Lungs are clear to auscultation bilaterally Cardiovascular regular rate rhythm no murmurs Abdomen soft nontender nondistended Extremities no edema Results Labs 09/14/24 06:15 09/14/24 06:15 Labs: Short CBC 09/13/24 09/14/24 Range/Units 14:35 06:15 WBC 12.0 H (4.5-10.0) K/mm3 Hgb 7.6 L 7.7 L (12.0-15.0) g/dL Hct 24.8 L 25.4 L (37.0-47.0) % Plt Count 319 (150-375) k/mm3 BMP 09/14/24 06:15 Sodium 133 L Potassium 5.0 Chloride 102 Carbon Dioxide 25 BUN 18 H Creatinine 0.88 Glucose 130 H Calcium 8.6
[2024-09-14 13:54] LABS: INR 1.1; Partial Thromboplastin Time 33.8 Seconds (22.3-36.8); Prothrombin Time 14.6 Seconds (11.1-14.7)
[2024-09-14 14:00] VITALS: BP 102/46; PULSE 65; RESP 18; TEMP 36.2; O2SAT 100
[2024-09-14] MEDS: IRON SUCROSE COMPLEX 400 MG, IRON SUCROSE COMPLEX 100 MG in SODIUM CHLORIDE 0.9% IV 250 ML 78.57 MG IVPB (14:00)
--- NOTE | 2024-09-14 14:45 | P.PNIM_ITS ---
Progress Note: A&P Assessment and Plan (1) Anemia: Code(s): D64.9 - Anemia, unspecified Status: Chronic (2) Debility, unspecified: Code(s): R53.81 - Other malaise Status: Acute (3) KATIE (acute kidney injury): Code(s): N17.9 - Acute kidney failure, unspecified Status: Acute (4) Hyponatremia: Code(s): E87.1 - Hypo-osmolality and hyponatremia Status: Acute (5) HTN (hypertension), benign: Code(s): I10 - Essential (primary) hypertension Status: Chronic (6) Atrial fibrillation: Code(s): I48.91 - Unspecified atrial fibrillation Status: Chronic (7) Generalized weakness: Code(s): R53.1 - Weakness Status: Acute Plan patient is 69 y/o AA female with PMHX of HTN, HDL, atril fibrilation on Eliquis, chronic pain, presented with generalized weakness and pain, patient is also found to have iron deficiency anemia, her iron is low patient is being transfused, patient concern is pain and weakness, currently receiving hydroc odone, baclofen, and Lidoderm patches, will have PT/ OT evaluate the patient patient and further recommendations to follow. This morning patient stats she is better compared to when she arrive, patient suspected iron deficiency anemia, will receive 3rd dose of iron, on 09/08 her hgb dropped to 6.5, denied any abdominal pain, n/v, rectal bleeding, transfused 1 unit PRBC, today her Hgb is 8.6, stool hemoccult is positive, today patient was seen by GI, patient had colonoscopy 1 yr ago which was normal, suspect patient anticoagulation may be causing her GI bleed however on 09/12 patient had EGD which was normal but colonoscopy showed patient has fungated mass in colon possibly malignant, may need resection and excision of the mass, seen by general surgery service recommending outpatient procedure at a later date, today patient feel tired and her hgb is trending down 7.7, patient is seen by oncologist, 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 Subjective Date/time seen: 09/14/24 14:45 Interval history: patient is 69 y/o AA female with PMHX of HTN, HDL, atril fibrilation on Eliquis, chronic pain, presented with generalized weakness and pain, patient is also found to have iron deficiency anemia, her iron is low patient is being transfused, patient concern is pain and weakness, currently receiving hydrocodone, baclofen, and lidoderm patches, will have PT/ OT evaluate the patient patient and further recommendations to follow. This morning patient stats she is better compared to when she arrive, patient suspected iron deficiency anemia, will receive 3rd dose of iron, on 09/08 her hgb dropped to 6.5, denied any abdominal pain, n/v, rectal bleeding, transfused 1 unit PRBC, today her Hgb is 8.6, stool hemoccult is positive, today patient was seen by GI, patient had colonoscopy 1 yr ago which was normal, suspect patient anticoagulation may be causing her GI bleed however on 09/12 patient had EGD which was normal but colonoscopy showed patient has fungated mass in colon possibly malignant, may need resection and excision of the mass, seen by general surgery service recommending outpatient procedure at a later date, today patient feel tired and her hgb is trending down 7.7, patient is seen by oncologist, 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 Review of Systems Review of Systems: A 10 system review of systems was completed on the patient and is negative except for what is stated in the HPI. Nursing and ancillary documentation was reviewed. Exam Narrative: Patient is comfortable, NAD, pain HEENT: eyes are clear and none icteric LUNGS:CTA HEART: RR S1S2 ABD: BS+, Soft and nontender Lower extremities: no edema SKIN: nonjaundiced Neuro: grossly intact. Objective Data Vital Signs Vital Signs: Vital Signs - 24 hr 09/13/24 20:00 09/13/24 20:56 09/14/24 05:24 Temperature 36.6 C 36.4 C Pulse Rate 88 88 69 Respiratory Rate 16 16 16 Blood Pressure 120/69 121/44 L Pulse Oximetry 100 100 100 Oxygen Delivery Room Air 09/14/24 08:16 Temperature Pulse Rate Respiratory Rate 16 Blood Pressure Pulse Oximetry 100 Oxygen Delivery Room Air Intake/Output Intake/Output: Intake & Output 09/12/24 09/12/24 09/13/24 09/14/24 00:59 23:59 23:59 23:59 Intake Total 1314 800 240 237 Output Total 1200 200 500 Balance 114 800 40 -263 Meds/Results Medications: Active Medications Generic Name Dose Route Start Last Admin Trade Name Freq PRN Reason Stop Dose Admin Hydrocodone Bitart/Acetaminophen 1 tab 09/06/24 04:46 09/14/24 14:09 Hydrocodone/Acetaminophen (*Crx) 5-325 Mg Tablet PO 1 tab Q6H PRN Administration pain 7-10 Amlodipine Besylate 10 mg 09/06/24 09:00 09/14/24 08:16 Amlodipine Besylate 10 Mg Tablet PO 10 mg DAILY YONY Administration Atorvastatin Calcium 10 mg 09/06/24 18:00 09/13/24 18:13 Atorvastatin 10 Mg Tablet PO 10 mg QPM YONY Administration Baclofen 10 mg 09/07/24 16:00 09/14/24 09:23 Baclofen 10 Mg Tablet PO 10 mg Q6H YONY Administration Citalopram Hydrobromide 10 mg 09/08/24 21:00 09/13/24 20:44 Citalopram Hydrobromide 10 Mg Tablet PO 10 mg HS YONY Administration Enoxaparin Sodium 50 mg 09/14/24 21:00 Enoxaparin 60 Mg/0.6 Ml Syringe SUB-Q Q12HR YONY Famotidine 20 mg 09/08/24 09:00 09/14/24 08:15 Famotidine 20 Mg Tablet PO 20 mg Q12HR YONY Administration Gabapentin 300 mg 09/06/24 06:00 09/14/24 13:36 Gabapentin 300 Mg Capsule PO 300 mg Q8HR YONY Administration Iron Sucrose 400 mg/ Iron 275 mls @ 78.571 mls/hr 09/14/24 14:00 09/14/24 14:00 Sucrose 100 mg/ Sodium IVPB 09/14/24 17:29 78.57 mls/hr Chloride ONCE ONE Administration Isosorbide Mononitrate 60 mg 09/06/24 09:00 09/14/24 08:15 Isosorbide Mononitrate 60 Mg Tab.Er.24h PO 60 mg DAILY YONY Administration Lidocaine 1 patch 09/06/24 09:00 09/14/24 08:16 Lidocaine 5% Patch TOPICAL 1 patch Q24H YONY Administration Lidocaine 2 patch 09/07/24 10:05 09/14/24 08:16 Lidocaine 5% Patch TRANSDERM 2 patch DAILY YONY Administration Loratadine 10 mg 09/08/24 21:00 09/13/24 20:44 Loratadine 10 Mg Tablet PO 10 mg HS YONY Administration Losartan Potassium 100 mg 09/06/24 09:00 09/14/24 08:15 Losartan Potassium 100 Mg Tablet PO 100 mg DAILY YONY Administration Ondansetron HCl 4 mg 09/06/24 03:01 09/12/24 17:44 Ondansetron Inj 4 Mg/2 Ml Vial IV PUSH 4 mg Q4H PRN Administration Nausea Polyethylene Glycol 17 gm 09/08/24 17:36 09/14/24 08:16 Polyethylene Glycol 3350 17 Gm Powd.Pack PO 17 gm QAM YONY Administration Vit/Calcium/Iron/Folic Ac 1 tab 09/06/24 09:00 09/14/24 08:15 Multivit/Min/Pren/Fol Ac/Iron Tablet PO 1 tab DAILY YONY Administration Senna/Docusate Sodium 2 tab 09/09/24 09:00 09/14/24 08:15 Senna/Docusate Sodium Tablet PO 2 tab BID YONY Administration Sertraline HCl 100 mg 09/08/24 21:00 09/13/24 20:43 Sertraline Hcl 50 Mg Tablet PO 100 mg HS YONY Administration Sodium Chloride 2 spray 09/06/24 07:56 09/14/24 04:35 Saline 0.65% Kendrick Soln 44 Ml Btl NASAL 2 spray BID PRN Administration nasal congestion Thiamine HCl 100 mg 09/06/24 09:00 09/14/24 08:16 Thiamine Hcl 100 Mg Tablet PO 100 mg QAM YONY Administration Radiology Results: ITS Impressions Chest X-Ray 09/06/24 06:07 Impression: Clear lungs. Abdomen/Pelvis CT 09/13/24 10:34 IMPRESSION: 1. Focal wall thickening of the ascending colon, consistent with primary malignancy. 2. Greater than 20 liver masses, consistent with metastatic disease. Consider ultrasound-guided core needle biopsy. Abdomen Ultrasound 09/14/24 12:36 IMPRESSION: Multiple liver lesions, suitable for biopsy. Labs Labs: Laboratory Results - last 24 hr 09/13/24 09/14/24 09/14/24 14:35 06:15 13:05 WBC 12.0 H RBC 3.75 L Hgb 7.6 L 7.7 L Hct 24.8 L 25.4 L MCV 67.7 L MCH 20.5 L MCHC 30.3 L RDW 26.7 H Plt Count 319 MPV 10.0 % Immature Plt Fraction 2.6 PT 14.6 INR 1.1 APTT 33.8 Sodium 133 L Potassium 5.0 Chloride 102 Carbon Dioxide 25 Anion Gap 6 BUN 18 H Creatinine 0.88 Estim Creat Clear Calc 38 Estimated GFR > 60 Glucose 130 H Calcium 8.6 Magnesium 2.2 Quality VTE Prophylaxis VTE prophylaxis: pharmacologic ordered
--- NOTE | 2024-09-14 15:49 | P.PNGS_ITS ---
Progress Note: A&P Assessment and Plan (1) Colonic mass: Code(s): K63.89 - Other specified diseases of intestine Status: Acute Assessment and Plan: * Malignant-appearing ascending colon mass found on colonoscopy, pathology pending. * CT scan of the abdomen/pelvis yesterday showed over 20 liver lesions consistent with metastatic disease. Oncology evaluated patient and is recommending Port placement to initiate chemotherapy. I discussed the details of the procedure, risks, benefits, alternatives, and expected outcomes with the patient and her . She agrees to proceed. She is concerned about being able to return as an outpatient for surgery as she lives at home with her and he has difficulty with getting her in and out of the house by himself. She someone come in 2 times per week to help with groceries and any errands they need to run, which is typically who helps them with transportation. She is requesting that the Port be placed while she is inpatient due to her difficulties with transportation. She is scheduled for a liver biopsy tomorrow. Will try adding her on for port placement either tomorrow or Thursday prior to discharge. (2) Acute on chronic anemia: Code(s): D64.9 - Anemia, unspecified Status: Acute (3) Generalized weakness: Code(s): R53.1 - Weakness Status: Acute (4) Chronic anticoagulation: Code(s): Z79.01 - FPC (current) use of anticoagulants Status: Chronic Assessment and Plan: * Eliquis still on hold, she was started on therapeutic-dosed Lovenox today. Continue to hold Eliquis while planning for Port placement. (5) Atrial fibrillation: Code(s): I48.91 - Unspecified atrial fibrillation Status: Chronic (6) HTN (hypertension), benign: Code(s): I10 - Essential (primary) hypertension Status: Chronic Plan I have discussed the patient's case and plan of care with Dr. Cox. Subjective Subjective Date/Time Seen: 09/14/24 15:49 Patient reports: no new complaints, tolerating a regular diet, flatus and no bowel movement Interval history: Patient seen this afternoon. No abdominal pain, nausea, or vomiting. No acute events overnight. Exam Const: General: comfortable and no acute distress Neck: Neck: normal visual inspection Resp: Effort & Inspection: normal respiratory effort Auscultation: clear to auscultation bilaterally Cardio: Rate: regular rate Rhythm: regular rhythm GI: Inspection: non-distended GI Palp: Yes Soft to palpation, No Tenderness to palpation present (GI) and No Guarding due to palpation present (GI) Objective Data Vital Signs Vital Signs: Vital Signs - 24 hr 09/13/24 20:00 09/13/24 20:56 09/14/24 05:24 Temperature 97.9 F 97.6 F Pulse Rate 88 88 69 Respiratory Rate 16 16 16 Blood Pressure 120/69 121/44 L Pulse Oximetry 100 100 100 Oxygen Delivery Room Air 09/14/24 08:16 09/14/24 14:00 Temperature 97.1 F L Pulse Rate 65 Respiratory Rate 16 18 Blood Pressure 102/46 L Pulse Oximetry 100 100 Oxygen Delivery Room Air Intake/Output Intake/Output: Intake & Output 09/12/24 09/12/24 09/13/24 09/14/24 00:59 23:59 23:59 23:59 Intake Total 1314 800 240 357 Output Total 1200 200 500 Balance 114 800 40 -143 Meds/Results Medications: Active Medications Generic Name Dose Route Start Last Admin Trade Name Freq PRN Reason Stop Dose Admin Hydrocodone Bitart/Acetaminophen 1 tab 09/06/24 04:46 09/14/24 14:09 Hydrocodone/Acetaminophen (*Crx) 5-325 Mg Tablet PO 1 tab Q6H PRN Administration pain 7-10 Amlodipine Besylate 10 mg 09/06/24 09:00 09/14/24 08:16 Amlodipine Besylate 10 Mg Tablet PO 10 mg DAILY YONY Administration Atorvastatin Calcium 10 mg 09/06/24 18:00 09/13/24 18:13 Atorvastatin 10 Mg Tablet PO 10 mg QPM YONY Administration Baclofen 10 mg 09/07/24 16:00 09/14/24 15:41 Baclofen 10 Mg Tablet PO 10 mg Q6H YONY Administration Citalopram Hydrobromide 10 mg 09/08/24 21:00 09/13/24 20:44 Citalopram Hydrobromide 10 Mg Tablet PO 10 mg HS YONY Administration Enoxaparin Sodium 50 mg 09/14/24 21:00 Enoxaparin 60 Mg/0.6 Ml Syringe SUB-Q Q12HR YONY Famotidine 20 mg 09/08/24 09:00 09/14/24 08:15 Famotidine 20 Mg Tablet PO 20 mg Q12HR YONY Administration Gabapentin 300 mg 09/06/24 06:00 09/14/24 13:36 Gabapentin 300 Mg Capsule PO 300 mg Q8HR YONY Administration Iron Sucrose 400 mg/ Iron 275 mls @ 78.571 mls/hr 09/14/24 14:00 09/14/24 14:00 Sucrose 100 mg/ Sodium IVPB 09/14/24 17:29 78.57 mls/hr Chloride ONCE ONE Administration Isosorbide Mononitrate 60 mg 09/06/24 09:00 09/14/24 08:15 Isosorbide Mononitrate 60 Mg Tab.Er.24h PO 60 mg DAILY YONY Administration Lidocaine 1 patch 09/06/24 09:00 09/14/24 08:16 Lidocaine 5% Patch TOPICAL 1 patch Q24H YONY Administration Lidocaine 2 patch 09/07/24 10:05 09/14/24 08:16 Lidocaine 5% Patch TRANSDERM 2 patch DAILY YONY Administration Loratadine 10 mg 09/08/24 21:00 09/13/24 20:44 Loratadine 10 Mg Tablet PO 10 mg HS YONY Administration Losartan Potassium 100 mg 09/06/24 09:00 09/14/24 08:15 Losartan Potassium 100 Mg Tablet PO 100 mg DAILY YONY Administration Ondansetron HCl 4 mg 09/06/24 03:01 09/12/24 17:44 Ondansetron Inj 4 Mg/2 Ml Vial IV PUSH 4 mg Q4H PRN Administration Nausea Polyethylene Glycol 17 gm 09/08/24 17:36 09/14/24 08:16 Polyethylene Glycol 3350 17 Gm Powd.Pack PO 17 gm QAM YONY Administration Vit/Calcium/Iron/Folic Ac 1 tab 09/06/24 09:00 09/14/24 08:15 Multivit/Min/Pren/Fol Ac/Iron Tablet PO 1 tab DAILY YONY Administration Senna/Docusate Sodium 2 tab 09/09/24 09:00 09/14/24 08:15 Senna/Docusate Sodium Tablet PO 2 tab BID YONY Administration Sertraline HCl 100 mg 09/08/24 21:00 09/13/24 20:43 Sertraline Hcl 50 Mg Tablet PO 100 mg HS YONY Administration Sodium Chloride 2 spray 09/06/24 07:56 09/14/24 04:35 Saline 0.65% Kendrick Soln 44 Ml Btl NASAL 2 spray BID PRN Administration nasal congestion Thiamine HCl 100 mg 09/06/24 09:00 09/14/24 08:16 Thiamine Hcl 100 Mg Tablet PO 100 mg QAM YONY Administration Radiology Results: ITS Impressions Chest X-Ray 09/06/24 06:07 Impression: Clear lungs. Abdomen/Pelvis CT 09/13/24 10:34 IMPRESSION: 1. Focal wall thickening of the ascending colon, consistent with primary malignancy. 2. Greater than 20 liver masses, consistent with metastatic disease. Consider ultrasound-guided core needle biopsy. Abdomen Ultrasound 09/14/24 12:36 IMPRESSION: Multiple liver lesions, suitable for biopsy. Labs Labs: Laboratory Results - last 24 hr 09/14/24 09/14/24 06:15 13:05 WBC 12.0 H RBC 3.75 L Hgb 7.7 L Hct 25.4 L MCV 67.7 L MCH 20.5 L MCHC 30.3 L RDW 26.7 H Plt Count 319 MPV 10.0 % Immature Plt Fraction 2.6 PT 14.6 INR 1.1 APTT 33.8 Sodium 133 L Potassium 5.0 Chloride 102 Carbon Dioxide 25 Anion Gap 6 BUN 18 H Creatinine 0.88 Estim Creat Clear Calc 38 Estimated GFR > 60 Glucose 130 H Calcium 8.6 Magnesium 2.2
[2024-09-14] MEDS: ATORVASTATIN 10 MG TABLET PO (17:11)
[2024-09-14 19:53] VITALS: PULSE 65; RESP 18; O2SAT 100
[2024-09-14] MEDS: ENOXAPARIN 60 MG/0.6 ML SYRINGE 50 MG SUB-Q (20:43)
[2024-09-14] MEDS: SERTRALINE HCL 50 MG TABLET 100 MG PO (20:44)
[2024-09-14] MEDS: CITALOPRAM HYDROBROMIDE 10 MG TABLET PO (20:44)
[2024-09-14] MEDS: LORATADINE 10 MG TABLET PO (20:44)
[2024-09-14 21:08] VITALS: BP 143/59; PULSE 71; RESP 16; TEMP 37.1; O2SAT 98
[2024-09-15] MEDS: HYDROcodone/acetaminophen (*CRX) 5-325 MG TABLET 1 TAB PO ×2 (02:40→18:38)
[2024-09-15] MEDS: BACLOFEN 10 MG TABLET PO ×4 (04:04→22:11)
[2024-09-15] MEDS: GABAPENTIN 300 MG CAPSULE PO ×3 (04:04→22:11)
[2024-09-15 05:44] VITALS: BP 136/67; PULSE 62; RESP 16; TEMP 36.9; O2SAT 100
[2024-09-15 06:07] LABS: Hematocrit 26.5 % (37.0-47.0); Mean Corpuscular HGB Conc 30.2 g/dl (32-36); Mean Corpuscular Hemoglobin 20.6 pg (26-34); Mean Corpuscular Volume 68.3 fl (80-100); Mean Platelet Volume 9.8 fl (7.4-10.4); Platelet Count Result 367 k/mm3 (150-375); Red Blood Count 3.88 M/mm3 (4.2-5.4); Red Cell Distribution Width 27.4 % (11.5-14.5); White Blood Count 11.9 K/mm3 (4.5-10.0)
[2024-09-15 06:16] LABS: Anion Gap 4 mmol/L (4-12); Blood Urea Nitrogen 15 mg/dL (7-17); Calcium 9.2 mg/dL (8.4-10.2); Carbon Dioxide 28 mmol/L (22-30); Chloride 102 mmol/L (98-107); Estimated CRCL calculation 48 ml/min; Estimated Glomerular Filt Rate > 60; Glucose 85 mg/dL (65-110); Magnesium 2.1 mg/dL (1.6-2.3); Potassium 5.6 mmol/L (3.4-5.0); Sodium 134 mmol/L (137-145)
[2024-09-15 08:03] VITALS: RESP 16; O2SAT 100
[2024-09-15] MEDS: LIDOCAINE 5% PATCH 1 PATCH TOPICAL (08:29)
[2024-09-15] MEDS: LIDOCAINE 5% PATCH 2 PATCH TRANSDERM (08:29)
[2024-09-15] MEDS: FAMOTIDINE 20 MG TABLET PO ×2 (08:30→22:11)
[2024-09-15] MEDS: amLODIPine BESYLATE 10 MG TABLET PO (08:30)
[2024-09-15] MEDS: ISOSORBIDE MONONITRATE 60 MG TAB.ER.24H PO (08:31)
[2024-09-15] MEDS: SODIUM ZIRCONIUM CYCLOSILICATE 5 GM POWD.PACK PO (10:47)
--- NOTE | 2024-09-15 12:50 | PCOTNOTE ---
Per RN, Patient having testing, might have a procedure done this afternoon, RN talking with the doctor about the plans. Patient declined, states having discomfort and not interested this afternoon.
--- NOTE | 2024-09-15 13:10 | PCPTNOTE ---
RN requested for patient not to be seen today for Physical Therapy, due to pending liver biopsy and port insertion this afternoon.
[2024-09-15 13:59] VITALS: BP 116/57; PULSE 78; RESP 16; TEMP 36.8; O2SAT 100
--- NOTE | 2024-09-15 14:04 | PM.IMPN ---
Progress Note: A&P Assessment and Plan (1) Anemia: Code(s): D64.9 - Anemia, unspecified Status: Chronic (2) Debility, unspecified: Code(s): R53.81 - Other malaise Status: Acute (3) KATIE (acute kidney injury): Code(s): N17.9 - Acute kidney failure, unspecified Status: Acute (4) Hyponatremia: Code(s): E87.1 - Hypo-osmolality and hyponatremia Status: Acute (5) HTN (hypertension), benign: Code(s): I10 - Essential (primary) hypertension Status: Chronic (6) Atrial fibrillation: Code(s): I48.91 - Unspecified atrial fibrillation Status: Chronic (7) Generalized weakness: Code(s): R53.1 - Weakness Status: Acute Plan patient is 69 y/o AA female with PMHX of HTN, HDL, atril fibrilation on Eliquis, chronic pain, presented with generalized weakness and pain, patient is also found to have iron deficiency anemia, her iron is low patient is being transfused, patient concern is pain and weakness, currently receiving hydrocodone, baclofen, and Lidoderm patches, will have PT/ OT evaluate the patient patient and further recommendations to follow. This morning patient stats she is better compared to when she arrive, patient suspected iron deficiency anemia, will receive 3rd dose of iron, on 09/08 her hgb dropped to 6.5, denied any abdominal pain, n/v, rectal bleeding, transfused 1 unit PRBC, today her Hgb is 8.6, stool hemoccult is positive, today patient was seen by GI, patient had colonoscopy 1 yr ago which was normal, suspect patient anticoagulation may be causing her GI bleed however on 09/12 patient had EGD which was normal but colonoscopy showed patient has fungated mass in colon possibly malignant, may need resection and excision of the mass, seen by general surgery service recommending outpatient procedure at a later date, patient feel tired and her hgb is trending down 8.0, patient is seen by oncologist, 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 Subjective Date/time seen: 09/15/24 14:04 Interval history: patient is 69 y/o AA female with PMHX of HTN, HDL, atril fibrilation on Eliquis, chronic pain, presented with generalized weakness and pain, patient is also found to have iron deficiency anemia, her iron is low patient is being transfused, patient concern is pain and weakness, currently receiving hydrocodone, baclofen, and lidoderm patches, will have PT/ OT evaluate the patient patient and further recommendations to follow. This morning patient stats she is better compared to when she arrive, patient suspected iron deficiency anemia, will receive 3rd dose of iron, on 09/08 her hgb dropped to 6.5, denied any abdominal pain, n/v, rectal bleeding, transfused 1 unit PRBC, today her Hgb is 8.6, stool hemoccult is positive, today patient was seen by GI, patient had colonoscopy 1 yr ago which was normal, suspect patient anticoagulation may be causing her GI bleed however on 09/12 patient had EGD which was normal but colonoscopy showed patient has fungated mass in colon possibly malignant, may need resection and excision of the mass, seen by general surgery service recommending outpatient procedure at a later date, patient feel tired and her hgb is trending down 8.0, patient is seen by oncologist, 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 Review of Systems Review of Systems: A 10 system review of systems was completed on the patient and is negative except for what is stated in the HPI. Nursing and ancillary documentation was reviewed. Exam Narrative: Patient is comfortable, NAD, pain HEENT: eyes are clear and none icteric LUNGS:CTA HEART: RR S1S2 ABD: BS+, Soft and nontender Lower extremities: no edema SKIN: nonjaundiced Neuro: grossly intact. Objective Data Vital Signs Vital Signs: Vital Signs - 24 hr 09/14/24 19:53 09/14/24 21:08 09/15/24 05:44 Temperature 37.1 C 36.9 C Pulse Rate 65 71 62 Respiratory Rate 18 16 16 Blood Pressure 143/59 H 136/67 Pulse Oximetry 100 98 100 Oxygen Delivery Room Air 09/15/24 08:03 09/15/24 13:59 Temperature 36.8 C Pulse Rate 78 Respiratory Rate 16 16 Blood Pressure 116/57 L Pulse Oximetry 100 100 Oxygen Delivery Room Air Intake/Output Intake/Output: Intake & Output 09/12/24 09/13/24 09/14/24 09/15/24 23:59 23:59 23:59 23:59 Intake Total 800 240 357 0 Output Total 200 700 800 Balance 800 40 -343 -800 Meds/Results Medications: Active Medications Generic Name Dose Route Start Last Admin Trade Name Freq PRN Reason Stop Dose Admin Hydrocodone Bitart/Acetaminophen 1 tab 09/06/24 04:46 09/15/24 02:40 Hydrocodone/Acetaminophen (*Crx) 5-325 Mg Tablet PO 1 tab Q6H PRN Administration pain 7-10 Amlodipine Besylate 10 mg 09/06/24 09:00 09/15/24 08:30 Amlodipine Besylate 10 Mg Tablet PO 10 mg DAILY YONY Administration Atorvastatin Calcium 10 mg 09/06/24 18:00 09/14/24 17:11 Atorvastatin 10 Mg Tablet PO 10 mg QPM YONY Administration Baclofen 10 mg 09/07/24 16:00 09/15/24 10:47 Baclofen 10 Mg Tablet PO 10 mg Q6H YONY Administration Citalopram Hydrobromide 10 mg 09/08/24 21:00 09/14/24 20:44 Citalopram Hydrobromide 10 Mg Tablet PO 10 mg HS YONY Administration Enoxaparin Sodium 50 mg 09/14/24 21:00 09/14/24 20:43 Enoxaparin 60 Mg/0.6 Ml Syringe SUB-Q 50 mg Q12HR YONY Administration Famotidine 20 mg 09/08/24 09:00 09/15/24 08:30 Famotidine 20 Mg Tablet PO 20 mg Q12HR YONY Administration Gabapentin 300 mg 09/06/24 06:00 09/15/24 13:42 Gabapentin 300 Mg Capsule PO 300 mg Q8HR YONY Administration Isosorbide Mononitrate 60 mg 09/06/24 09:00 09/15/24 08:31 Isosorbide Mononitrate 60 Mg Tab.Er.24h PO 60 mg DAILY YONY Administration Lidocaine 1 patch 09/06/24 09:00 09/15/24 08:29 Lidocaine 5% Patch TOPICAL 1 patch Q24H YONY Administration Lidocaine 2 patch 09/07/24 10:05 09/15/24 08:29 Lidocaine 5% Patch TRANSDERM 2 patch DAILY YONY Administration Loratadine 10 mg 09/08/24 21:00 09/14/24 20:44 Loratadine 10 Mg Tablet PO 10 mg HS YONY Administration Losartan Potassium 100 mg 09/06/24 09:00 09/15/24 08:35 Losartan Potassium 100 Mg Tablet PO Not Given DAILY [facility] Miscellaneous Information 0 each 09/15/24 00:01 09/15/24 13:47 Bassett Renew If Still Needs Or Will Auto D/C XX 10/15/24 00:00 Not Given CLARIFY FOR[facility], [facility]1983 Ondansetron HCl 4 mg 09/06/24 03:01 09/12/24 17:44 Ondansetron Inj 4 Mg/2 Ml Vial IV PUSH 4 mg Q4H PRN Administration Nausea Polyethylene Glycol 17 gm 09/08/24 17:36 09/15/24 08:36 Polyethylene Glycol 3350 17 Gm Powd.Pack PO Not Given QAM [facility] Vit/Calcium/Iron/Folic Ac 1 tab 09/06/24 09:00 09/15/24 08:35 Multivit/Min/Pren/Fol Ac/Iron Tablet PO Not Given DAILY [facility] Senna/Docusate Sodium 2 tab 09/09/24 09:00 09/15/24 08:37 Senna/Docusate Sodium Tablet PO Not Given BID [facility] Sertraline HCl 100 mg 09/08/24 21:00 09/14/24 20:44 Sertraline Hcl 50 Mg Tablet PO 100 mg HS [facility] Administration Sodium Chloride 2 spray 09/06/24 07:56 09/14/24 04:35 Saline 0.65% Kendrick Soln 44 Ml Btl NASAL 2 spray BID PRN Administration nasal congestion Sodium Zirconium Cyclosilicate 5 gm 09/15/24 10:00 09/15/24 10:47 Sodium Zirconium Cyclosilicate 5 Gm Powd.Pack PO 5 gm DAILY@1000 [facility] Administration Thiamine HCl 100 mg 09/06/24 09:00 09/15/24 08:36 Thiamine Hcl 100 Mg Tablet PO Not Given QAM [facility] Radiology Results: ITS Impressions Chest X-Ray 09/06/24 06:07 Impression: Clear lungs. Abdomen/Pelvis CT 09/13/24 10:34 IMPRESSION: 1. Focal wall thickening of the ascending colon, consistent with primary malignancy. 2. Greater than 20 liver masses, consistent with metastatic disease. Consider ultrasound-guided core needle biopsy. Abdomen Ultrasound 09/14/24 12:36 IMPRESSION: Multiple liver lesions, suitable for biopsy. Labs Labs: Laboratory Results - last 24 hr 09/14/24 09/15/24 13:05 05:47 WBC 11.9 H RBC 3.88 L Hgb 8.0 L Hct 26.5 L MCV 68.3 L MCH 20.6 L MCHC 30.2 L RDW 27.4 H Plt Count 367 MPV 9.8 Sodium 134 L Potassium 5.6 H Chloride 102 Carbon Dioxide 28 Anion Gap 4 BUN 15 Creatinine 0.68 L Estim Creat Clear Calc 48 Estimated GFR > 60 Glucose 85 Calcium 9.2 Magnesium 2.1 Carcinoembryonic Ag 3140.0 H Quality VTE Prophylaxis VTE prophylaxis: pharmacologic ordered
[2024-09-15 15:32] LABS: Anion Gap 6 mmol/L (4-12); Blood Urea Nitrogen 10 mg/dL (7-17); Calcium 9.2 mg/dL (8.4-10.2); Carbon Dioxide 26 mmol/L (22-30); Chloride 101 mmol/L (98-107); Estimated CRCL calculation 48 ml/min; Estimated Glomerular Filt Rate > 60; Glucose 85 mg/dL (65-110); Magnesium 1.9 mg/dL (1.6-2.3); Potassium 5.3 mmol/L (3.4-5.0); Sodium 133 mmol/L (137-145)
[2024-09-15] MEDS: SENNA/DOCUSATE SODIUM TABLET 2 TAB PO (17:19)
[2024-09-15] MEDS: ATORVASTATIN 10 MG TABLET PO (17:21)
[2024-09-15 21:09] VITALS: BP 116/55; PULSE 87; RESP 18; TEMP 36.7; O2SAT 100
[2024-09-15] MEDS: CITALOPRAM HYDROBROMIDE 10 MG TABLET PO (22:11)
[2024-09-15] MEDS: LORATADINE 10 MG TABLET PO (22:11)
[2024-09-15] MEDS: SERTRALINE HCL 50 MG TABLET 100 MG PO (22:11)
[2024-09-16] MEDS: HYDROcodone/acetaminophen (*CRX) 5-325 MG TABLET 1 TAB PO ×2 (02:08→10:19)
[2024-09-16] MEDS: BACLOFEN 10 MG TABLET PO ×3 (03:08→17:51)
[2024-09-16] MEDS: GABAPENTIN 300 MG CAPSULE PO ×2 (05:02→13:45)
[2024-09-16 05:25] VITALS: BP 129/51; PULSE 74; RESP 16; TEMP 36.2; O2SAT 100
[2024-09-16 06:21] LABS: Hematocrit 26.3 % (37.0-47.0); Immature Platelet Fraction Pct 3.1 % (0.9-11.2); Mean Corpuscular HGB Conc 30.4 g/dl (32-36); Mean Corpuscular Hemoglobin 20.4 pg (26-34); Mean Corpuscular Volume 67.1 fl (80-100); Platelet Count Result 312 k/mm3 (150-375); Red Blood Count 3.92 M/mm3 (4.2-5.4); Red Cell Distribution Width 27.8 % (11.5-14.5); White Blood Count 12.1 K/mm3 (4.5-10.0)
[2024-09-16 06:34] LABS: Anion Gap 8 mmol/L (4-12); Blood Urea Nitrogen 15 mg/dL (7-17); Calcium 9.1 mg/dL (8.4-10.2); Carbon Dioxide 26 mmol/L (22-30); Chloride 99 mmol/L (98-107); Estimated CRCL calculation 45 ml/min; Estimated Glomerular Filt Rate > 60; Glucose 75 mg/dL (65-110); Magnesium 2.1 mg/dL (1.6-2.3); Sodium 133 mmol/L (137-145)
[2024-09-16] MEDS: SENNA/DOCUSATE SODIUM TABLET 2 TAB PO ×2 (10:20→17:51)
[2024-09-16] MEDS: MULTIVIT/MIN/PREN/FOL AC/IRON TABLET 1 TAB PO (10:20)
[2024-09-16] MEDS: amLODIPine BESYLATE 10 MG TABLET PO (10:20)
[2024-09-16] MEDS: ISOSORBIDE MONONITRATE 60 MG TAB.ER.24H PO (10:21)
[2024-09-16] MEDS: FAMOTIDINE 20 MG TABLET PO (10:21)
[2024-09-16] MEDS: THIAMINE HCL 100 MG TABLET PO (10:21)
--- NOTE | 2024-09-16 10:45 | PCNFU ---
Nutrition Follow-Up Complete: Severe protein calorie malnutrition related to inadequate energy intake as evidenced by pt report of a -28% wt loss x 1 year, reduced po intake for 1 year, and NFPE findings for severe muscle wasting specifically in lower region (thigh, knee, calf) as well as moderate subcutaneous fat loss (cheeks) PO intake 75% of meals and supplements - Progressing with intakes 0-100% Goal: Pt current nutrition is Regular diet. Nutrition recommendation: Oral nutrition supplements (order was not added after NPO was over): Nutritional ice cream BID (270 kcal, 10 g protein) and Ensure Enlive TID (350 kcal, 20 g protein) Last recorded weight is 46.3 kg. Bowel Motility:+ 1 BM 09/14/24 Labs Reviewed: Hgb 8.0, Hct 26.3, Na 133 Meds Noted: Thiamine, MV, Eliquis Skin: No skin issues Additional Notes: Colon mass found on colonoscopy. Port placement planned. Intakes are mostly fair to good, 0-100%. Supplements reordered after NPO. Monitor intake, wt, labs. Follow up in 5 days.
--- NOTE | 2024-09-16 11:06 | PM.DS ---
DS: Summary Time Spent with Patient Time attestation: Total time spent providing and/or coordinating discharge services: DS: Data Data Completed and Pending Completed studies during hospitalization: Pending at discharge 09/12/24 15:28 Surgical [PTH] Routine Surgical [PTH] Routine Pending studies at discharge: Pending at discharge 09/15/24 17:09 Surgical [PTH] Routine Labs on day of discharge: Labs from last 24 hours 09/16/24 09/15/24 05:54 15:13 WBC 12.1 H RBC 3.92 L Hgb 8.0 L Hct 26.3 L MCV 67.1 L MCH 20.4 L MCHC 30.4 L RDW 27.8 H Plt Count 312 MPV 10.0 % Immature Plt Fraction 3.1 Sodium 133 L 133 L Potassium 5.0 5.3 H Chloride 99 101 Carbon Dioxide 26 26 Anion Gap 8 6 BUN 15 D 10 D Creatinine 0.72 0.67 L Estim Creat Clear Calc 45 48 Estimated GFR > 60 > 60 Glucose 75 85 Calcium 9.1 9.2 Magnesium 2.1 1.9 Discharge Plan Discharge Attending physician on discharge: Monica Cuevas Consulting providers: Cuauhtemoc Carlson; Michael Cox; Juan Alberto Boyce Discharging Clinician: Aldair Hubbard Patient Disposition: Home Health Service Activity: as tolerated Diet: heart healthy Discharge Instructions: Care Coordination: Patient to have [facility] for PT/OT eval and treat, and nursing home. Their phone number is [phone] if you have any questions; they will contact you to schedule their first visit. RN Please fax discharge instructions to [phone]. Port placement will have to be set up as an outpatient due to the congested OR schedule. General surgery office will contact patient to arrange procedure. patient to follow discharge care instruction from her surgeon and follow up as scheduled, patient to follow up Dr. Boyce oncologist as soon as possible, patient to follow up with her primary care provider as soon as possible. patient is instructed if any symptoms worsen to go to nearest ER. Patient Instructions: Antibiotic Form, Apixaban (By mouth) Patient Language: Thai Stand Alone Forms: General Discharge Information Follow-up/Referrals: Juan Alberto Boyce MD [Physician] - Mundo,Arden Callejas MD [Primary Care Provider] - Michael Cox DO [Physician] - Discharge Medications: New hydrocodone-acetaminophen 5-325 mg Tablet 1 tablet PO Q6H PRN (Reason: pain 7-10) Qty: 15 0RF thiamine HCl (vitamin B1) [Vitamin B-1] 100 mg Tablet 100 mg PO QAM Qty: 100 0RF lidocaine [Lidoderm] 5 % Adhesive Patch,Medicated 2 patch transdermal DAILY Qty: 30 0RF polyethylene glycol 3350 [Miralax] 17 gram Powder In Packet 17 g PO QAM Qty: 30 0RF ferrous sulfate [Feosol] 325 mg (65 mg iron) tablet 325 mg PO BID Qty: 60 0RF Continued amlodipine 10 mg tablet 10 mg PO DAILY Eliquis DVT-PE Treat 30D Start 5 mg (74 tabs) tablets,dose pack 5 mg PO Q12H atorvastatin 10 mg tablet 10 mg PO QPM baclofen 10 mg tablet 10 mg PO Q6H PRN (Reason: muscle spasm) losartan 100 mg tablet 100 mg PO DAILY sertraline 100 mg tablet 100 mg PO Q24H sennosides-docusate sodium [Stimulant Laxative Plus] 8.6-50 mg tablet 1 tab-cap PO BID [place] Nasal 0.65 % aerosol,spray 2 spray INTRANASAL BID PRN (Reason: nasal congestion) lidocaine 5 % adhesive patch,medicated 1 patch topical Q24H hydrocodone-acetaminophen 5-325 mg tablet 1 tablet PO Q6H PRN (Reason: pain) hydralazine 100 mg tablet 100 mg PO Q12H Patient Comments: CAUSES PATIENT TO BECOME NAUSEOUS famotidine 20 mg tablet 20 mg PO BID gabapentin 300 mg capsule 300 mg PO Q8H isosorbide mononitrate 60 mg tablet extended release 24 hr 60 mg PO DAILY citalopram 10 mg tablet 10 mg PO DAILY cetirizine 10 mg tablet 10 mg PO DAILY Date of admission: 09/06/24 08:41 Primary Care Provider: Mundo,Arden Callejas Admitting Provider: Monica Cuevas Attending physician on admission: Monica Cuevas Condition: Stable
[2024-09-16] MEDS: SODIUM ZIRCONIUM CYCLOSILICATE 5 GM POWD.PACK PO (11:18)
[2024-09-16 14:05] VITALS: BP 108/59; PULSE 69; RESP 17; TEMP 36.9; O2SAT 97
--- NOTE | 2024-09-16 14:45 | PCOTNOTE ---
Attempted to see Patient this afternoon. Patient declined stating she is in to much pain, very anxious and being discharged this afternoon. Patient's present
--- NOTE | 2024-09-16 16:08 | PM.IMPN ---
Progress Note: A&P Assessment and Plan (1) Anemia: Code(s): D64.9 - Anemia, unspecified Status: Chronic (2) Debility, unspecified: Code(s): R53.81 - Other malaise Status: Acute (3) KATIE (acute kidney injury): Code(s): N17.9 - Acute kidney failure, unspecified Status: Acute (4) Hyponatremia: Code(s): E87.1 - Hypo-osmolality and hyponatremia Status: Acute (5) HTN (hypertension), benign: Code(s): I10 - Essential (primary) hypertension Status: Chronic (6) Atrial fibrillation: Code(s): I48.91 - Unspecified atrial fibrillation Status: Chronic (7) Generalized weakness: Code(s): R53.1 - Weakness Status: Acute Plan patient is 69 y/o AA female with PMHX of HTN, HDL, atril fibrilation on Eliquis, chronic pain, presented with generalized weakness and pain, patient is also found to have iron deficiency anemia, her iron is low patient is being transfused, patient concern is pain and weakness, currently receiving hydrocodone, baclofen, and Lidoderm patches, will have PT/ OT evaluate the patient patient and further recommendations to follow. This morning patient stats she is better compared to when she arrive, patient suspected iron deficiency anemia, will receive 3rd dose of iron, on 09/08 her hgb dropped to 6.5, denied any abdominal pain, n/v, rectal bleeding, transfused 1 unit PRBC, today her Hgb is 8.6, stool hemoccult is positive, today patient was seen by GI, patient had colonoscopy 1 yr ago which was normal, suspect patient anticoagulation may be causing her GI bleed however on 09/12 patient had EGD which was normal but colonoscopy showed patient has fungated mass in colon possibly malignant, may need resection and excision of the mass, seen by general surgery service recommending outpatient procedure at a later date, patient feel tired and her hgb is trending down 8.0, patient is seen by oncologist, suspect patient has metastatic colon cancer mets to liver, biopsy is scheduled today , and oncologist recommended systematic chemotherapy and has order Mediport placement, however plan was to insert Mediport and discharge patient today however surgery canceled it but patient does not want be discharged due bad weather in the area, will follow up and plan, patient pain is persisting, will continue baclofen, Lidoderm patches, and hydrocodone PRN, will have PT/OT work with patient, patient will benefit going to rehab. Subjective Date/time seen: 09/16/24 16:08 Interval history: patient is 69 y/o AA female with PMHX of HTN, HDL, atril fibrilation on Eliquis, chronic pain, presented with generalized weakness and pain, patient is also found to have iron deficiency anemia, her iron is low patient is being transfused, patient concern is pain and weakness, currently receiving hydrocodone, baclofen, and lidoderm patches, will have PT/ OT evaluate the patient patient and further recommendations to follow. This morning patient stats she is better compared to when she arrive, patient suspected iron deficiency anemia, will receive 3rd dose of iron, on 09/08 her hgb dropped to 6.5, denied any abdominal pain, n/v, rectal bleeding, transfused 1 unit PRBC, today her Hgb is 8.6, stool hemoccult is positive, today patient was seen by GI, patient had colonoscopy 1 yr ago which was normal, suspect patient anticoagulation may be causing her GI bleed however on 09/12 patient had EGD which was normal but colonoscopy showed patient has fungated mass in colon possibly malignant, may need resection and excision of the mass, seen by general surgery service recommending outpatient procedure at a later date, patient feel tired and her hgb is trending down 8.0, patient is seen by oncologist, suspect patient has metastatic colon cancer mets to liver, biopsy is scheduled today , and oncologist recommended systematic chemotherapy and has order Mediport placement, however plan was to insert Mediport and discharge patient today however surgery canceled it but patient does not want be discharged due bad weather in the area, will follow up and plan, patient pain is persisting, will continue baclofen, Lidoderm patches, and hydrocodone PRN, will have PT/OT work with patient, patient will benefit going to rehab. Review of Systems Review of Systems: A 10 system review of systems was completed on the patient and is negative except for what is stated in the HPI. Nursing and ancillary documentation was reviewed. Exam Narrative: Patient is comfortable, NAD, pain HEENT: eyes are clear and none icteric LUNGS:CTA HEART: RR S1S2 ABD: BS+, Soft and nontender Lower extremities: no edema SKIN: nonjaundiced Neuro: grossly intact. Objective Data Vital Signs Vital Signs: Vital Signs - 24 hr 09/15/24 21:09 09/15/24 22:11 09/16/24 05:25 Temperature 36.7 C 36.2 C L Pulse Rate 87 74 Respiratory Rate 18 16 Blood Pressure 116/55 L 129/51 L Pulse Oximetry 100 100 Oxygen Delivery Room Air 09/16/24 14:05 Temperature 36.9 C Pulse Rate 69 Respiratory Rate 17 Blood Pressure 108/59 L Pulse Oximetry 97 Oxygen Delivery Intake/Output Intake/Output: Intake & Output 09/13/24 09/14/24 09/15/24 09/16/24 23:59 23:59 23:59 23:59 Intake Total 240 357 600 360 Output Total 081 112 1548 700 Balance 40 -343 -1050 -340 Meds/Results Medications: Active Medications Generic Name Dose Route Start Last Admin Trade Name Freq PRN Reason Stop Dose Admin Hydrocodone Bitart/Acetaminophen 1 tab 09/06/24 04:46 09/16/24 10:19 Hydrocodone/Acetaminophen (*Crx) 5-325 Mg Tablet PO 1 tab Q6H PRN Administration pain 7-10 Amlodipine Besylate 10 mg 09/06/24 09:00 09/16/24 10:20 Amlodipine Besylate 10 Mg Tablet PO 10 mg DAILY YONY Administration Atorvastatin Calcium 10 mg 09/06/24 18:00 09/15/24 17:21 Atorvastatin 10 Mg Tablet PO 10 mg QPM YONY Administration Baclofen 10 mg 09/07/24 16:00 09/16/24 11:18 Baclofen 10 Mg Tablet PO 10 mg Q6H YONY Administration Citalopram Hydrobromide 10 mg 09/08/24 21:00 09/15/24 22:11 Citalopram Hydrobromide 10 Mg Tablet PO 10 mg HS YONY Administration Enoxaparin Sodium 50 mg 09/14/24 21:00 09/14/24 20:43 Enoxaparin 60 Mg/0.6 Ml Syringe SUB-Q 50 mg Q12HR YONY Administration Famotidine 20 mg 09/08/24 09:00 09/16/24 10:21 Famotidine 20 Mg Tablet PO 20 mg Q12HR YONY Administration Gabapentin 300 mg 09/06/24 06:00 09/16/24 13:45 Gabapentin 300 Mg Capsule PO 300 mg Q8HR YONY Administration Isosorbide Mononitrate 60 mg 09/06/24 09:00 09/16/24 10:21 Isosorbide Mononitrate 60 Mg Tab.Er.24h PO 60 mg DAILY YONY Administration Lidocaine 1 patch 09/06/24 09:00 09/16/24 10:21 Lidocaine 5% Patch TOPICAL Not Given Q24H YONY Lidocaine 2 patch 09/07/24 10:05 09/16/24 10:21 Lidocaine 5% Patch TRANSDERM Not Given DAILY YONY Loratadine 10 mg 09/08/24 21:00 09/15/24 22:11 Loratadine 10 Mg Tablet PO 10 mg HS YONY Administration Losartan Potassium 100 mg 09/06/24 09:00 09/15/24 08:35 Losartan Potassium 100 Mg Tablet PO Not Given DAILY YONY Ondansetron HCl 4 mg 09/06/24 03:01 09/12/24 17:44 Ondansetron Inj 4 Mg/2 Ml Vial IV PUSH 4 mg Q4H PRN Administration Nausea Polyethylene Glycol 17 gm 09/08/24 17:36 09/16/24 10:20 Polyethylene Glycol 3350 17 Gm Powd.Pack PO Not Given QAM [facility] Vit/Calcium/Iron/Folic Ac 1 tab 09/06/24 09:00 09/16/24 10:20 Multivit/Min/Pren/Fol Ac/Iron Tablet PO 1 tab DAILY YONY Administration Senna/Docusate Sodium 2 tab 09/09/24 09:00 09/16/24 10:20 Senna/Docusate Sodium Tablet PO 2 tab BID YONY Administration Sertraline HCl 100 mg 09/08/24 21:00 09/15/24 22:11 Sertraline Hcl 50 Mg Tablet PO 100 mg HS YONY Administration Sodium Chloride 2 spray 09/06/24 07:56 09/14/24 04:35 Saline 0.65% Kendrick Soln 44 Ml Btl NASAL 2 spray BID PRN Administration nasal congestion Sodium Zirconium Cyclosilicate 5 gm 09/15/24 10:00 09/16/24 11:18 Sodium Zirconium Cyclosilicate 5 Gm Powd.Pack PO 5 gm DAILY@1000 YONY Administration Thiamine HCl 100 mg 09/06/24 09:00 09/16/24 10:21 Thiamine Hcl 100 Mg Tablet PO 100 mg QAM YONY Administration Radiology Results: ITS Impressions Chest X-Ray 09/06/24 06:07 Impression: Clear lungs. Abdomen/Pelvis CT 09/13/24 10:34 IMPRESSION: 1. Focal wall thickening of the ascending colon, consistent with primary malignancy. 2. Greater than 20 liver masses, consistent with metastatic disease. Consider ultrasound-guided core needle biopsy. Abdomen Ultrasound 09/14/24 12:36 IMPRESSION: Multiple liver lesions, suitable for biopsy. Liver Biopsy Ultrasound 09/15/24 17:50 IMPRESSION: 1. Technically successful ultrasound-guided core biopsy of a 19 mm hyperechoic lesion within the right lobe of the liver, likely representing metastatic disease. Pathology is pending. Labs Labs: Laboratory Results - last 24 hr 09/16/24 05:54 WBC 12.1 H RBC 3.92 L Hgb 8.0 L Hct 26.3 L MCV 67.1 L MCH 20.4 L MCHC 30.4 L RDW 27.8 H Plt Count 312 MPV 10.0 % Immature Plt Fraction 3.1 Sodium 133 L Potassium 5.0 Chloride 99 Carbon Dioxide 26 Anion Gap 8 BUN 15 D Creatinine 0.72 Estim Creat Clear Calc 45 Estimated GFR > 60 Glucose 75 Calcium 9.1 Magnesium 2.1 Quality VTE Prophylaxis VTE prophylaxis: pharmacologic ordered
[2024-09-16] MEDS: ATORVASTATIN 10 MG TABLET PO (17:51)
== END 2024-09-16 19:46 | disposition home health service (06) | DRG 240 ==
LOC: ANHED 09-06 03:05 → ANH3MEDSUR 09-06 03:36
PROVIDERS: Internal Medicine Gastroenterology; Internal Medicine Hematology & Oncology; Admitting Provider Internal Medicine; Emergency Provider Emergency Medicine; PCP Family Medicine; Visit Provider Family Medicine
PROC: 0DJ08ZZ Inspection of Upper Intestinal Tract, Via Natural or Artificial Opening Endoscopic (ICD-10-PCS; CPT 45378; principal; 2024-09-12 15:45)
DX: C18.2 Malignant neoplasm of ascending colon (principal); D63.0 Anemia in neoplastic disease; C78.7 Secondary malignant neoplasm of liver and intrahepatic bile duct; D62 Acute posthemorrhagic anemia; D50.9 Iron deficiency anemia, unspecified; R19.5 Other fecal abnormalities; K29.70 Gastritis, unspecified, without bleeding; K64.8 Other hemorrhoids; K63.5 Polyp of colon; N17.9 Acute kidney failure, unspecified; E87.1 Hypo-osmolality and hyponatremia; I48.20 Chronic atrial fibrillation, unspecified; E78.5 Hyperlipidemia, unspecified; I10 Essential (primary) hypertension; G89.29 Other chronic pain; R53.81 Other malaise; Z79.01 Long term (current) use of anticoagulants; Z87.891 Personal history of nicotine dependence
CPT/HCPCS: 36415; 36430; 47000; 71046; 74178; 76705; 76942; 80048; 80053; 81003; 82077; 82274; 82378; 82550; 82607; 82728; 82746; 83540; 83550; 83605; 83735; 84443; 84484; 85014; 85018; 85025; 85027; 85046; 85055; 85610; 85730; 86850; 86900; 86901; 86923; 87637; 88305; 88307; 88312; 88342; 93005; 96365; 96375; 97110; 97161; 97165; 97530; 97535; 99285; A9270; G0379; J1650; J1756; J2003; J2405; J2704; J3411; J3475; J7030; J7050; J7120; P9016; Q9967